=== PATIENT | female | born 1930 | race Caucasian/White ===

== ENCOUNTER 2018-11-25 16:06 | Inpatient (IN) ==
--- NOTE | 2018-11-25 16:21 | Emergency Department Note ---
ED Disposition Clinical Impression: Anemia Qualifiers: Anemia type: unspecified type Qualified Code(s): D64.9 - Anemia, unspecified Hypotension Qualifiers: Hypotension type: unspecified hypotension type Qualified Code(s): I95.9 - Hypotension, unspecified Acute bronchitis Qualifiers: Bronchitis organism: unspecified organism Qualified Code(s): J20.9 - Acute bronchitis, unspecified Disposition: Admitted as Observation Condition on Discharge: [facility] - Critical Care Critical Care Time: No Attestation: On , the high probability of a clinically significant, sudden or life threatening deterioration of the following system(s) required my full and direct attention, intervention and personal management. The time I documented below is in addition to time spent performing reported procedures but includes the following listed in this critical care notation. Medical Decision Making - [place] Inquiry Pt receiving controlled substance: No Vital Signs: 11/25/18 16:08 11/25/18 16:19 11/25/18 16:24 Temperature 100.1 F H Temperature Source Oral Pulse Rate Pulse Rate [Left Radial] 117 H 109 H 107 H Respiratory Rate 20 20 Blood Pressure Blood Pressure [Right Arm] 80/65 L 90/47 L 84/47 L Blood Pressure Mean [Right Arm] 70 61 59 Blood Pressure Source Blood Pressure Source [Right Arm] Automatic Cuff Automatic Cuff Automatic Cuff Blood Pressure Position Blood Pressure Position [Right Arm] Sitting Sitting Sitting 02 Sat by Pulse Oximetry 96 96 96 Oxygen Delivery Method Nasal Cannula Nasal Cannula Nasal Cannula Oxygen Flow Rate (LPM) 4 2 2 11/25/18 16:30 11/25/18 16:39 11/25/18 16:43 Temperature Temperature Source Pulse Rate Pulse Rate [Left Radial] 108 H 107 H 108 H Respiratory Rate Blood Pressure Blood Pressure [Right Arm] 98/46 L 91/52 L 95/51 L Blood Pressure Mean [Right Arm] 63 65 65 Blood Pressure Source Blood Pressure Source [Right Arm] Automatic Cuff Automatic Cuff Automatic Cuff Blood Pressure Position Blood Pressure Position [Right Arm] Sitting Sitting Sitting 02 Sat by Pulse Oximetry 95 Oxygen Delivery Method Room Air Oxygen Flow Rate (LPM) 11/25/18 16:47 11/25/18 16:51 11/25/18 17:11 Temperature 99.3 F 99.2 F Temperature Source Oral Oral Pulse Rate 106 H Pulse Rate [Left Radial] 112 H Respiratory Rate 18 Blood Pressure Blood Pressure [Right Arm] 98/55 L Blood Pressure Mean [Right Arm] 69 Blood Pressure Source Blood Pressure Source [Right Arm] Automatic Cuff Blood Pressure Position Blood Pressure Position [Right Arm] Sitting 02 Sat by Pulse Oximetry 94 L Oxygen Delivery Method Non-Rebreather Oxygen Flow Rate (LPM) 2 11/25/18 17:30 11/25/18 17:40 11/25/18 18:00 Temperature Temperature Source Pulse Rate Pulse Rate [Left Radial] 108 H 112 H 108 H Respiratory Rate 16 20 Blood Pressure Blood Pressure [Right Arm] 115/59 L 115/64 116/60 Blood Pressure Mean [Right Arm] 77 81 78 Blood Pressure Source Blood Pressure Source [Right Arm] Automatic Cuff Automatic Cuff Blood Pressure Position Blood Pressure Position [Right Arm] Sitting Sitting Sitting 02 Sat by Pulse Oximetry 93 L 90 L Oxygen Delivery Method Nasal Cannula Nasal Cannula Oxygen Flow Rate (LPM) 2 2 11/25/18 19:00 11/25/18 20:05 Temperature 98.1 F Temperature Source Temporal Artery Scan Pulse Rate 102 H Pulse Rate [Left Radial] 109 H Respiratory Rate 20 18 Blood Pressure 122/63 Blood Pressure [Right Arm] 121/63 Blood Pressure Mean [Right Arm] 82 Blood Pressure Source Automatic Cuff Blood Pressure Source [Right Arm] Automatic Cuff Blood Pressure Position Sitting Blood Pressure Position [Right Arm] Sitting 02 Sat by Pulse Oximetry 94 L Oxygen Delivery Method Nasal Cannula Nasal Cannula Oxygen Flow Rate (LPM) 2 2 - Lab Data Lab Results 11/25/18 16:15: WBC 95.3 H*, RBC 1.64 L*, Hgb 6.0 L*, Hct 19.6 L*, MCV 119.7 H, MCH 36.3 H, MCHC 30.4 L, RDW 16.2, Plt Count 238, MPV 7.8, Neut % (Auto) 10.3 L, Lymph % (Auto) 86.3 H, [place] % (Auto) 0.5 L, Eos % (Auto) 0.2, Baso % (Auto) 2.8 H, Neut # (Auto) 9.8 H, Lymph # (Auto) 82.2 H, [place] # (Auto) 0.5, Eos # (Auto) 0.2, Baso # (Auto) 2.7 H, Total Counted 100, Neutrophils % (Manual) 7 L, Lymphocytes % (Manual) 87 H, Atypical Lymphs % 5.0, Monocytes % (Manual) 1 L, Platelet Estimate Normal, Hypochromasia 1+, Macrocytosis 2+ 11/25/18 16:15: Sodium 139, Potassium 4.3, Chloride 100, Carbon Dioxide 28, Anion Gap 15.3 H, BUN 15, Creatinine 1.11 H, Estimated Creat Clear 40, Estimated GFR 47 L, Est GFR ( Amer) 56 L, Glucose 136 H, Calcium 8.7, Total Bilirubin 1.7 H, AST 19, ALT 13, Alkaline Phosphatase 124 H, Total Protein 6.9, Albumin 4.1, Globulin 2.8, Albumin/Globulin Ratio 1.5, Amylase 36, TSH 0.37 11/25/18 16:15: Lactate 1.6 11/25/18 16:15: PT 62.8 H, INR 6.44 H 11/25/18 16:15: Lipase 90 11/25/18 16:15: Acetaminophen 0 L 11/25/18 16:23: Specimen Source L. radial, O2 % 2 lpm, ABG pH 7.42, ABG pCO2 40.9, ABG pO2 74.7 L, ABG HCO3 26.1 H, ABG Total CO2 27.3 H, ABG O2 Saturation 93, ABG Base Excess 1.6, [place] Test acceptable 11/25/18 17:05: Stool Occult Blood Negative 11/25/18 17:16: Influenza Type A Ag Negative, Influenza Type B Ag Negative 11/25/18 17:20: Crossmatch (AHG) See Detail 11/25/18 17:55: Urine Color Yellow, Urine Appearance Clear, Urine pH 7.0, Ur Specific [place] 1.010, Urine Protein Negative, Urine Glucose (UA) Negative, Urine Ketones Negative, Urine Blood Trace-i, Urine Nitrate Negative, Urine Bilirubin Negative, Urine Urobilinogen 0.2, Ur Leukocyte Esterase Negative, Urine RBC Occasional, Urine WBC Occasional, Ur Squamous Epith Cells None, Amorphous Sediment 1+ Result diagrams: 11/25/18 16:15 11/25/18 16:15 Orders (Tests/Meds): ED MEDICATIONS Generic Name Dose Route Start Last Admin Trade Name Freq PRN Reason Stop Dose Admin Acetaminophen/Codeine Phosphate 1 - 2 each 11/25/18 19:47 Tylenol #3 Tablet PO 12/25/18 19:46 TIDP PRN shingles pain Albuterol/Ipratropium 3 ml 11/25/18 20:00 Duoneb 3ml Neb IH 12/25/18 19:59 QIDRT LINDSAY Dicyclomine HCl 10 mg 11/25/18 19:47 Bentyl 10mg Capsule PO 12/25/18 19:46 Q4HP PRN cramping Sodium Chloride 250 mls @ 25 mls/hr 11/25/18 19:47 Sod Chlor 0.9% 250ml Bag IV 11/26/18 16:59 .Q10H LINDSAY Ceftriaxone Sodium 1 gm/ 50 mls @ 100 mls/hr 11/26/18 19:15 Sodium Chloride IV 12/09/18 19:14 Q24H LINDSAY Protocol Sodium Chloride 1,000 mls @ 100 mls/hr 11/25/18 19:47 Sod Chlor 0.9% 1000ml Bag IV 12/25/18 19:46 .Q10H LINDSAY Levothyroxine Sodium 150 mcg 11/26/18 09:00 Synthroid 150mcg (0.15mg) Tablet PO 12/26/18 08:59 DAILY [facility] Montelukast Sodium 10 mg 11/25/18 21:00 Singulair 10mg Tablet PO 12/25/18 20:59 HS LINDSAY Non-Formulary Medication 800 mg 11/25/18 21:00 Gabapentin [Gabapentin 800mg Tab] PO 12/25/18 20:59 TID LINDSAY Non-Formulary Medication 17 gm 11/26/18 09:00 Polyethylene Glycol 3350 [Miralax Powder] PO 12/26/18 08:59 DAILY [facility] Non-Formulary Medication 10 meq 11/26/18 09:00 Potassium Citrate [Urocit-K] PO 12/26/18 08:59 DAILY [facility] Ondansetron HCl 4 mg 11/25/18 19:47 Zofran 4mg Odt PO 12/25/18 19:46 TIDP PRN Nausea Sertraline HCl 50 mg 11/26/18 09:00 Zoloft 50mg Tablet PO 12/26/18 08:59 DAILY [facility] Temazepam 30 mg 11/25/18 21:00 Restoril 30mg Capsule PO 12/25/18 20:59 HS LINDSAY Discontinued Medications Generic Name Dose Route Start Last Admin Trade Name Freq PRN Reason Stop Dose Admin Albuterol/Ipratropium 3 ml 11/25/18 20:00 11/25/18 16:46 Duoneb 3ml Neb IH 12/25/18 19:59 3 ml QIDRT LINDSAY Administration Sodium Chloride 1,000 mls @ 999 mls/hr 11/25/18 16:15 11/25/18 16:16 Sod Chlor 0.9% 1000ml Bag IV 11/25/18 17:15 999 mls/hr .Q1H1M LINDSAY Administration Sodium Chloride 1,110 mls @ 999 mls/hr 11/25/18 16:26 11/25/18 16:53 Sod Chlor 0.9% 1000ml Bag IV 11/25/18 17:31 999 mls/hr .Q1H7M LINDSAY Administration Sodium Chloride 250 mls @ 25 mls/hr 11/25/18 17:00 Sod Chlor 0.9% 250ml Bag IV 11/26/18 16:59 .Q10H LINDSAY Ceftriaxone Sodium 1 gm/ 50 mls @ 100 mls/hr 11/25/18 19:15 11/25/18 19:30 Sodium Chloride IV 12/09/18 19:14 100 mls/hr Q24H LINDSAY Administration Protocol Ioversol 75 ml 11/25/18 18:02 11/25/18 18:03 Rad-Optiray 350 100ml Vial IV 11/25/18 18:03 75 ml ONCE ONE Administration Methylprednisolone Sodium Succinate 125 mg 11/25/18 16:26 11/25/18 16:37 Solu-Medrol 125mg/2ml Vial IV 11/25/18 16:27 125 mg ONCE ONE Administration Sodium Chloride 10 ml 11/25/18 18:02 11/25/18 18:03 Rad-Saline Flush 10ml Syringe IV 11/25/18 18:03 10 ml ONCE ONE Administration ORDERS Category Date Time Status PRBC [Red Blood Cells] Stat BBK 11/25/18 17:20 Received Type and Screen Stat BBK 11/25/18 17:20 Received Complete Blood Count Auto Diff AMLAB Lab 11/26/18 06:00 Ordered Hepatitis Panel (4) Stat Lab 11/25/18 16:15 Received Prothrombin Time INR AMLAB Lab 11/26/18 06:00 Ordered Blood Culture Stat Micro 11/25/18 16:15 Received - Radiology Data #1 Image(s): Chest Image Reviewed: Yes I have reviewed radiologist's interpretation Preliminary Findings: Normal/NAD - CT Data CT Scan: Abdomen, Pelvis Time Received: 18:[address] Reviewed: Yes: I have viewed the radiologist's interpretation Findings Narrative: IMPRESSION: 1. No evidence of acute intra-abdominal or retroperitoneal hemorrhage. 2. Splenomegaly 3. Severe wedging of L1 with kyphosis and retrolisthesis of the posterior inferior aspect with spinal stenosis Dictated By: [place] Lynch MD Signed By: <Electronically signed by Houston Lynch MD in [place]> 11/25/18 4800 - ECG Data Tracing #1 EKG interpreted by Fernando Razo MD: Rhythm: sinus Rate: [place]: normal Ectopy: none Conduction: normal ST Segment Changes: none T Wave Changes: none Q Waves: none No evidence of acute ischemia or injury - Physician Consults Physician Consulted: Mike Time: 19:08 Reason -: Admission Comment/Response: Agrees to admit the patient to the hospital. We discussed the patient's clinical information, including history, exam, laboratory and radiology results and ED course. Per hospital procedure, I will write temporary bridge inpatient orders on the patient. Specific orders requested by the admitting physician: Await crossmatched blood, normal saline 100 cc/h, Rocephin. hold Coumadin and Lasix and continue other medications. Medical Decision Narrative: Lab reports that the patient has an antibody and they will need to obtain crossmatched blood from [place]. Patient could only be transfused from our blood supply if it was emergent. General Adult HPI - General Chief complaint: Weakness Stated complaint: weakness Time Seen by Provider: 11/25/18 16:19 Mode of Arrival: EMS Limitations: No Limitations Description of Symptoms (Recalled from ER Triage Doc. by RN): to ed per squad reports pt with generalized weakness, cough, pt with hx of dementia and is usually ambulatory at home but has not be up out of bed today. family states pt was placed on macrobid weds for uti. pt wears O2 2L 19/04 squad states o2 sats of 88% so they increased flow to 4Lcpta IV - History of Present Illness HPI narrative: Brought in by ambulance. History obtained from patient and her son. She is feeling generally weak today. Her oxygen saturation dropped. She is normally on 2 L by nasal cannula at home, turned up to 4 L. She has had cough and congestion for about a week. She has been on treatment with Macrobid for a urinary tract infection for the past couple of days. She has a history of recurrent urinary tract infections. Patient skin color has changed markedly today. Patient says she has had a prior cholecystectomy. She denies any abdominal pain. No vomiting or diarrhea. She is denying any sort of pain at present. No history of liver problems, hepatitis, or alcohol use. History of anemia, on iron, stool is always black. Hemoglobin is generally in the range of 8. - Related Data Home Medications Medication Instructions Recorded Confirmed Acetaminophen with Codeine 1 - 2 tab PO TIDP PRN MDD 1-2 as 12/02/17 11/25/18 [Tylenol with Codeine #3 needed tablet] Gabapentin [Gabapentin 800mg Tab] 800 mg PO TID 12/02/17 11/25/18 Levothyroxine Sodium [Synthroid 150 mcg PO DAILY 12/02/17 11/25/18 150mcg (0.15mg) tablet] Montelukast Sodium [Montelukast 10 mg PO HS 12/02/17 11/25/18 10mg Tab] Promethazine HCl [Phenergan 12.5mg 12.5 mg PO Q6HP PRN 12/02/17 11/25/18 tablet] Sertraline HCl [Zoloft 50mg tablet] 50 mg PO DAILY 12/02/17 11/25/18 Temazepam [Restoril 30mg capsule] 30 mg PO HS 12/02/17 11/25/18 Warfarin Sodium 5 mg PO MOTUTHFRSA 12/02/17 11/25/18 Dicyclomine HCl [Bentyl 10mg 10 mg PO Q4HP PRN 12/03/17 11/25/18 capsule] Ondansetron [Zofran 4mg ODT] 4 mg PO TIDP PRN 12/03/17 11/25/18 Warfarin Sodium 2.5 mg PO WE 12/03/17 11/25/18 Furosemide [Furosemide 20mg Tab] 20 mg PO DAILY 03/20/18 11/25/18 Polyethylene Glycol 3350 [Miralax 17 gm PO DAILY 03/20/18 11/25/18 Powder] Potassium Citrate [Urocit-K] 10 meq PO DAILY 03/20/18 11/25/18 Allergies Allergy/AdvReac Type Severity Reaction Status Date / Time tramadol [TRAMADOL] AdvReac Intermediate NA-NAUSEA Verified 12/02/17 23:02 morphine [MORPHINE] AdvReac Mild NA-NAUSEA Verified 12/02/17 23:02 [facility] History - Hepatitis A Screen Drug use history?: No High risk sexual behaviors?: No History of sexually transmitted infection?: No Currently employed?: No Childcare worker?: No Do you have indoor plumbing?: Yes Do you have electricity?: Yes Attestation statement:: This patient has been screened for Hepatitis A risk factors. I have reviewed the patient's past medical history: Yes Medical History: Reports:: Cancer (leukemia, colon), Depression, Hypertension, Pulmonary Embolism Denies:: Diabetes Mellitus Type 1, Diabetes Mellitus Type 2, MRSA Other Medical History: Reports: Hypothyroidism, Thyroid Disease (thyroid removed) Other Surgeries: Yes: Appendectomy, Hernia Repair, Thyroidectomy Amputation: No Fractures: No Comment: Right hemicolectomy - Social History Smoking Status: Former smoker Tobacco Type: cigarettes Alcohol Intake: never Occupational Status: retired Housing: house Household Members: caregiver - Psychiatric History Expresses thoughts of harming self/others: None Suicide Plan Description: No Plan Pschychiatric History:: Reports:: Depression Family Hx:: Coronary Artery Disease ROS Obtained: Yes All systems reviewed & no additional complaints - Constitutional Constitutional: Reports fatigue, Reports fever(s) (Discovered in emergency department), Reports weakness - Cardiovascular Cardiovascular: Reports other Comments: Patient denies chest pain, but son states she complained of some right-sided chest pain earlier today - Respiratory Respiratory: Yes cough, No dyspnea - Gastrointestinal Gastrointestingal: Denies: abdominal pain, diarrhea, vomiting Physical Exam - General General appearance: alert, in no apparent distress - Head Head exam: atraumatic, normocephalic - Eye Eye exam: Present: PERRL, EOMI - ENT ENT exam: Present: mucous membranes moist - Neck Neck exam: Present: normal inspection, trachea midline - Chest Chest inspection: Present: normal inspection, symmetric chest wall rise - Respiratory Respiratory exam: Present: normal lung sounds bilaterally. Absent: respiratory distress, accessory muscle use - Cardiovascular Cardiovascular exam: Present: normal rhythm, tachycardia, normal heart sounds - Abdominal Exam Abdominal exam: Present: soft. Absent: distention, tenderness, guarding, rebound, rigidity - Rectal Exam Rectal exam: Present: normal inspection. Absent: black stool, bloody stool, mass - Extremities Exam Extremities exam: Present: normal inspection - Neurological Exam Neurological exam: Present: alert - Psychiatric Psychiatric exam: Present: normal affect, normal mood - Skin Skin exam: Present: warm, dry, pallor, other (Sallow appearance)
[2018-11-25 16:42] LABS: ABG Base Excess 1.6 mmol/L (-2.4-2.3); ABG HCO3 26.1 mmhg (22.0-26.0); ABG Oxygen Saturation 93 % (90-100); ABG PCO2 40.9 mmhg (35.0-45.0); ABG PH 7.42 mmol/L (7.35-7.45); ABG PO2 74.7 mmhg (80-100); ABG TCO2 27.3 mmhg (23-27)
[2018-11-25 16:43] LABS: Basophils # 2.7 K/mm3 (0-0.2); Basophils % 2.8 % (0.1-2.0); Eosinophils # 0.2 K/mm3 (0.0-0.4); Eosinophils % 0.2 % (0.1-12.0); Lymphocytes # 82.2 K/mm3 (0.7-4.5); Lymphocytes % 86.3 % (10-50); Mean Corpuscular HGB Conc 30.4 g/dL (31.8-35.4); Mean Corpuscular Hemoglobin 36.3 pg (27.0-31.2); Mean Corpuscular Volume 119.7 fl (81-99); Mean Platelet Volume 7.8 fl (7.4-10.4); Monocytes # 0.5 K/mm3 (0.1-1.0); Monocytes % 0.5 % (1.7-9.3); Neutrophils # 9.8 K/mm3 (1.8-7.8); Platelet Count 238 K/mm3 (142-424); Red Blood Count 1.64 M/mm3 (4.20-5.40); Red Cell Distribution Width 16.2 % (11.5-17.5)
[2018-11-25 16:44] LABS: Allen's Test acceptable; Oxygen 2 lpm %
[2018-11-25 16:54] LABS: Albumin Level 4.1 gm/dL (3.4-5.0); Albumin/Globulin Ratio 1.5 (1.1-1.8); Anion Gap 15.3 mEq/L (5-15); Bilirubin,Total 1.7 mg/dL (0.2-1.0); Calcium 8.7 mg/dL (8.5-10.1); Globulin 2.8 gm/dl (1.3-3.2); Neutrophils % 10.3 % (37.0-80.0); Potassium 4.3 mmoL/L (3.5-5.1); Thyroid Stimulating Hormone 0.37 uIU/ml (0.358-3.740); Total Protein,Serum 6.9 gm/dL (6.4-8.2)
[2018-11-25 16:55] LABS: Hematocrit 19.6 % (37.0-47.0); White Blood Count 95.3 K/mm3 (4.8-10.8)
[2018-11-25 16:59] LABS: Prothrombin Time 62.8 seconds (9.4-11.8)
[2018-11-25 17:00] LABS: INR 6.44 (0.9-1.1)
[2018-11-25 17:10] LABS: Lymphocytes % 87 % (10-50); Macrocytosis 2+; Monocytes % 1 % (2-9); Neutrophils % 7 % (42-76); Total Cells Counted 100
[2018-11-25 17:11] LABS: Hypochromasia 1+
[2018-11-25 18:22] LABS: Microscopic, Urine URINE MICROSCOPIC (MICROSCOPIC)
[2018-11-25 18:24] LABS: Appearance,Urine CLEAR (Clear); Bilirubin,Urine Negative (Negative); Blood, Urine TRACE-I (Negative); Color,Urine YELLOW (Yellow); Glucose,Urine (UA) Negative (Negative); Ketones,Urine Negative (Negative); Leukocyte Esterase,Urine Negative (Negative); Protein,Urine Negative (Negative); Urobilinogen,Urine 0.2 EU/dl (0.2)
[2018-11-25 18:44] LABS: Amorphous Sediment,Urine 1+ /lpf; RBC,Urine Occasional #/hpf (0-3); WBC,Urine Occasional #/hpf (0-3)
--- NOTE | 2018-11-26 08:22 | History & Physical Report ---
*Admission Date: 11/26/18 <Keke Romeo 11/26/18 08:47> *Chief complaint: weakness, cough <Keke Romeo 11/26/18 08:47> *History of present illness: Ms. Palomo is an 88-year-old female with a history of chronic lymphocytic leukemia who is currently on anticoagulation d/t a history of a PE. Her son states she has had a cough for the past 1-2 weeks and has been taking Bromfed with some improvement. She seems to be wheezing more than she has been the past few days. She has also been on Macrobid for the past 3 days for a urinary tract infection. He states yesterday she woke up early and went to the bathroom and was feeling weak. As the day progressed, her weakness wors ened. She began getting very pale and also looked jaundiced in the face. She became too weak to even walk, therefore EMS was called and she was transported to the emergency room. Evaluation revealed a hemoglobin of 6 and a hematocrit of 19.6. Her stool for blood was negative. Her INR was supratherapeutic at 6.44. She was admitted for blood transfusion and further evaluation. <Keke Romeo 11/26/18 08:47> [facility] History Medical History: Reports:: Cancer (chronic lymphocytic leukemia, colon), Depression, Hypertension, Pulmonary Embolism Denies:: Diabetes Mellitus Type 1, Diabetes Mellitus Type 2, MRSA <Keke Romeo 11/26/18 08:47> *Have you ever received a pneumonia vaccine?: No <Keke Romeo 11/26/18 08:47> *Have you received a flu vaccine this season?: No <Keke Romeo 11/26/18 08:47> Other Medical History: Reports: Hypothyroidism, Thyroid Disease (thyroid removed), Other (Meningioma, L1 compression fx) <Keke Romeo 11/26/18 08:47> Other Surgeries: Yes: Appendectomy, Colon Resection, Hernia Repair, Thyroidectomy <Keke Romeo 11/26/18 08:47> Amputation: No <Keke Romoe 11/26/18 08:47> Fractures: No <Keke Romeo 11/26/18 08:47> - *Social History Educational Level: Completed High School <Keke Romeo 11/26/18 08:47> Smoking Status: Former smoker <Keke Romeo 11/26/18 08:47> Tobacco Type: cigarettes <Keke Romeo 11/26/18 08:47> Alcohol Intake: never <Keke Romeo 11/26/18 08:47> *Occupational Status:: retired <Keke Romeo 11/26/18 08:47> Housing: house <Keke Romeo 11/26/18 08:47> Household Members: caregiver <Keke Romeo 11/26/18 08:47> *Travel in the last 8 weeks: None <Keke Romeo 11/26/18 08:47> - Psychiatric History Expresses thoughts of harming self/others: None <Keke Romeo 11/26/18 08:47> Suicide Plan Description: No Plan <Keke Romeo 11/26/18 08:47> Pschychiatric History:: Reports:: Depression <Keke Romeo 11/26/18 08:47> Family Hx:: Coronary Artery Disease, Hypertension, Kidney Disease <Keke Romeo 11/26/18 08:47> Review of Systems - Constitutional Reports chills, Reports fatigue, Reports fever(s), Reports weakness <Keke Romeo 11/26/18 08:47> - Eyes Denies blurry vision, Denies double vision <Keke Romeo 11/26/18 08:47> - ENT Reports nasal congestion, Denies sore throat <Keke Romeo 11/26/18 08:47> - *Cardiovascular Denies chest pain, Denies shortness of breath, Denies rapid, pounding, or irregular heartbeat <Keke Romeo 11/26/18 08:47> - *Respiratory Reports cough, Denies shortness of breath <Keke Romeo 11/26/18 08:47> - *Gastrointestinal Denies abdominal pain, Denies loose stools, Denies nausea, Denies vomiting <Keke Romeo 11/26/18 08:47> - *Genitourinary Denies difficulty urinating, Denies painful urination <Keke Romeo 11/26/18 08:47> - *Musculoskeletal Denies joint pain, Denies body aches <Keke Romeo - 11/26/18 08:47> - *Neurologic Reports weakness, Denies headache(s), Denies dizziness <Keke Romeo - 11/26/18 08:47> Meds Home Medications Medication Instructions Recorded Confirmed Type Acetaminophen with Codeine 1 - 2 tab PO TIDP PRN MDD 1-2 as 12/02/17 11/25/18 History [Tylenol with Codeine #3 needed tablet] Gabapentin [Gabapentin 800mg Tab] 800 mg PO TID 12/02/17 11/25/18 History Levothyroxine Sodium [Synthroid 150 mcg PO DAILY 12/02/17 11/25/18 History 150mcg (0.15mg) tablet] Montelukast Sodium [Montelukast 10 mg PO HS 12/02/17 11/25/18 History 10mg Tab] Promethazine HCl [Phenergan 12.5mg 12.5 mg PO Q6HP PRN 12/02/17 11/25/18 History tablet] Sertraline HCl [Zoloft 50mg tablet] 50 mg PO DAILY 12/02/17 11/25/18 History Temazepam [Restoril 30mg capsule] 30 mg PO HS 12/02/17 11/25/18 History Warfarin Sodium 5 mg PO MOTUTHFRSA 12/02/17 11/25/18 History Ondansetron [Zofran 4mg ODT] 4 mg PO TIDP PRN 12/03/17 11/25/18 History Warfarin Sodium 2.5 mg PO WE 12/03/17 11/25/18 History Furosemide [Furosemide 20mg Tab] 20 mg PO DAILY 03/20/18 11/25/18 History Polyethylene Glycol 3350 [Miralax 17 gm PO DAILY 03/20/18 11/25/18 History Powder] Potassium Citrate [Urocit-K] 10 meq PO DAILY 03/20/18 11/25/18 History Dicyclomine HCl 20 mg PO QID 11/26/18 11/26/18 History Ferrous Sulfate [Iron] 325 mg PO BID 11/26/18 11/26/18 History <[place] - 11/26/18 08:59> Allergies Allergy/AdvReac Type Severity Reaction Status Date / Time tramadol [TRAMADOL] AdvReac Intermediate NA-NAUSEA Verified 12/02/17 23:02 morphine [MORPHINE] AdvReac Mild NA-NAUSEA Verified 12/02/17 23:02 <Hiren Mckeon - 11/26/18 08:59> Exam Vital signs and Labs for Last 24 Hours: Temp Pulse Resp BP Pulse Ox 97.8 F 110 H 20 106/58 L 93 L 11/26/18 08:25 11/26/18 08:25 11/26/18 08:25 11/26/18 08:25 11/26/18 08:25 Laboratory Results - last 24 hr 11/25/18 16:15: WBC 95.3 H*, RBC 1.64 L*, Hgb 6.0 L*, Hct 19.6 L*, MCV 119.7 H, MCH 36.3 H, MCHC 30.4 L, RDW 16.2, Plt Count 238, MPV 7.8, Neut % (Auto) 10.3 L, Lymph % (Auto) 86.3 H, [place] % (Auto) 0.5 L, Eos % (Auto) 0.2, Baso % (Auto) 2.8 H, Neut # (Auto) 9.8 H, Lymph # (Auto) 82.2 H, [place] # (Auto) 0.5, Eos # (Auto) 0.2, Baso # (Auto) 2.7 H, Total Counted 100, Neutrophils % (Manual) 7 L, Lymphocytes % (Manual) 87 H, Atypical Lymphs % 5.0, Monocytes % (Manual) 1 L, Platelet Estimate Normal, Hypochromasia 1+, Macrocytosis 2+ 11/25/18 16:15: Sodium 139, Potassium 4.3, Chloride 100, Carbon Dioxide 28, Anion Gap 15.3 H, BUN 15, Creatinine 1.11 H, Estimated Creat Clear 40, Estimated GFR 47 L, Est GFR ( Amer) 56 L, Glucose 136 H, Calcium 8.7, Total Bilirubin 1.7 H, AST 19, ALT 13, Alkaline Phosphatase 124 H, Total Protein 6.9, Albumin 4.1, Globulin 2.8, Albumin/Globulin Ratio 1.5, Amylase 36, TSH 0.37 11/25/18 16:15: Lactate 1.6 11/25/18 16:15: PT 62.8 H, INR 6.44 H 11/25/18 16:15: Lipase 90 11/25/18 16:15: Acetaminophen 0 L 11/25/18 16:23: Specimen Source L. radial, O2 % 2 lpm, ABG pH 7.42, ABG pCO2 40.9, ABG pO2 74.7 L, ABG HCO3 26.1 H, ABG Total CO2 27.3 H, ABG O2 Saturation 93, ABG Base Excess 1.6, [place] Test acceptable 11/25/18 17:05: Stool Occult Blood Negative 11/25/18 17:16: Influenza Type A Ag Negative, Influenza Type B Ag Negative 11/25/18 17:20: Blood Type A Positive, Antibody Screen Positive, Crossmatch (AHG) See Detail 11/25/18 17:20: Antibody Identification Warm Auto Antibody 11/25/18 17:55: Urine Color Yellow, Urine Appearance Clear, Urine pH 7.0, Ur Specific [place] 1.010, Urine Protein Negative, Urine Glucose (UA) Negative, Urine Ketones Negative, Urine Blood Trace-i, Urine Nitrate Negative, Urine Bilirubin Negative, Urine Urobilinogen 0.2, Ur Leukocyte Esterase Negative, Urine RBC Occasional, Urine WBC Occasional, Ur Squamous Epith Cells None, Amorphous Sediment 1+ <Rodríguez Mckeonian - 11/26/18 08:59> Temp Pulse Resp BP Pulse Ox 98.5 F 107 H 18 118/58 L 94 L 11/26/18 07:25 11/26/18 07:25 11/26/18 07:25 11/26/18 07:25 11/26/18 07:25 Laboratory Results - last 24 hr 11/25/18 16:15: WBC 95.3 H*, RBC 1.64 L*, Hgb 6.0 L*, Hct 19.6 L*, MCV 119.7 H, MCH 36.3 H, MCHC 30.4 L, RDW 16.2, Plt Count 238, MPV 7.8, Neut % (Auto) 10.3 L, Lymph % (Auto) 86.3 H, [place] % (Auto) 0.5 L, Eos % (Auto) 0.2, Baso % (Auto) 2.8 H, Neut # (Auto) 9.8 H, Lymph # (Auto) 82.2 H, [place] # (Auto) 0.5, Eos # (Auto) 0.2, Baso # (Auto) 2.7 H, Total Counted 100, Neutrophils % (Manual) 7 L, Lymphocytes % (Manual) 87 H, Atypical Lymphs % 5.0, Monocytes % (Manual) 1 L, Platelet Estimate Normal, Hypochromasia 1+, Macrocytosis 2+ 11/25/18 16:15: Sodium 139, Potassium 4.3, Chloride 100, Carbon Dioxide 28, Anion Gap 15.3 H, BUN 15, Creatinine 1.11 H, Estimated Creat Clear 40, Estimated GFR 47 L, Est GFR ( Amer) 56 L, Glucose 136 H, Calcium 8.7, Total Bilirubin 1.7 H, AST 19, ALT 13, Alkaline Phosphatase 124 H, Total Protein 6.9, Albumin 4.1, Globulin 2.8, Albumin/Globulin Ratio 1.5, Amylase 36, TSH 0.37 11/25/18 16:15: Lactate 1.6 11/25/18 16:15: PT 62.8 H, INR 6.44 H 11/25/18 16:15: Lipase 90 11/25/18 16:15: Acetaminophen 0 L 11/25/18 16:23: Specimen Source L. radial, O2 % 2 lpm, ABG pH 7.42, ABG pCO2 40.9, ABG pO2 74.7 L, ABG HCO3 26.1 H, ABG Total CO2 27.3 H, ABG O2 Saturation 93, ABG Base Excess 1.6, [place] Test acceptable 11/25/18 17:05: Stool Occult Blood Negative 11/25/18 17:16: Influenza Type A Ag Negative, Influenza Type B Ag Negative 11/25/18 17:20: Blood Type A Positive, Antibody Screen Positive, Crossmatch (AHG) See Detail 11/25/18 17:20: Antibody Identification Warm Auto Antibody 11/25/18 17:55: Urine Color Yellow, Urine Appearance Clear, Urine pH 7.0, Ur Specific [place] 1.010, Urine Protein Negative, Urine Glucose (UA) Negative, Urine Ketones Negative, Urine Blood Trace-i, Urine Nitrate Negative, Urine Bilirubin Negative, Urine Urobilinogen 0.2, Ur Leukocyte Esterase Negative, Urine RBC Occasional, Urine WBC Occasional, Ur Squamous Epith Cells None, Amorphous Sediment 1+ <Kkee Romeo - 11/26/18 08:47> I & O for Last 24 hours: Intake & Output 11/23/18 11/24/18 11/25/18 11/26/18 11:59 11:59 11:59 11:59 Intake Total 1597 / 1597 Output Total 1000 / 1000 Balance 597 / 597 Weight 5 lb 7 oz <MikeRodríguezHiren - 11/26/18 08:59> Intake & Output 11/23/18 11/24/18 11/25/18 11/26/18 11:59 11:59 11:59 11:59 Intake Total 1347 / 1347 Output Total 1000 / 1000 Balance 347 / 347 Weight 5 lb 7 oz <Keke Romeo - 11/26/18 08:47> Microbiology Reports for the Last 24 Hours: Microbiology 11/26/18 04:20 Sputum - Expectorated Sputum Gram Stain - Final <[place] marie - 11/26/18 08:59> Microbiology 11/26/18 04:20 Sputum - Expectorated Sputum Gram Stain - Final <Keke Romeo - 11/26/18 08:47> - Constitutional no acute distress <Keke Romeo - 11/26/18 08:47> - *Routine HEENT Exam Head: Present: normocephalic <Keke Romeo 11/26/18 08:47> Eye: Present: EOMI, PERRL <Keke Romeo 11/26/18 08:47> ENT: Present: mucous membranes moist <Keke Romeo - 11/26/18 08:47> - *Routine Neck Exam Present: supple. Absent: lymphadenopathy <Keke Romeo - 11/26/18 08:47> - *Routine Respiratory Exam Present: rhonchi, wheezes (bilaterally) <Keke Romeo - 11/26/18 08:47> - *Routine Cardiovascular Exam Present: RRR <Keke Romeo - 11/26/18 08:47> - *Routine Abdominal Exam Present: soft, normoactive bowel sounds. Absent: tenderness <Keke Romeo - 11/26/18 08:47> - *Routine Extremities Exam Absent: cyanosis, clubbing, edema <Keke Romeo - 11/26/18 08:47> - *Routine Skin Exam Present: pallor <Keke Romeo - 11/26/18 08:47> - *Routine Neurological Exam Present: alert, oriented X3 <Keke Romeo 11/26/18 08:47> H&P: Result - Impressions CXR - nothing acute Abdominal CT 1. No evidence of acute intra-abdominal or retroperitoneal hemorrhage. 2. Splenomegaly 3. Severe wedging of L1 with kyphosis and retrolisthesis of the posterior inferior aspect with spinal stenosis <Keke Romeo - 11/26/18 08:47> Assessment and Plan (1) Anemia Current visit: Yes Status: Acute Qualifiers: Anemia type: unspecified type Qualified Code(s): D64.9 - Anemia, unspecified Category: Medical Code(s): D64.9 - Anemia, unspecified (2) Subtherapeutic international normalized ratio (INR) Current visit: No Status: Acute Category: Medical Code(s): R79.1 - Abno rmal coagulation profile (3) Hypotension Current visit: Yes Status: Acute Qualifiers: Hypotension type: unspecified hypotension type Qualified Code(s): I95.9 - Hypotension, unspecified Category: Medical Code(s): I95.9 - Hypotension, unspecified (4) Acute bronchitis Current visit: Yes Status: Acute Qualifiers: Bronchitis organism: unspecified organism Qualified Code(s): J20.9 - Acute bronchitis, unspecified Category: Medical Code(s): J20.9 - Acute bronchitis, unspecified (5) Hyperbilirubinemia Current visit: Yes Status: Acute Category: Medical Code(s): E80.6 - Other disorders of bilirubin metabolism (6) Pulmonary hypertension Current visit: No Status: Chronic Category: Medical Code(s): I27.20 - Pulmonary hypertension, unspecified (7) Renal insufficiency Current visit: No Status: Chronic Category: Medical Code(s): N28.9 - Disorder of kidney and ureter, unspecified (8) 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 Category: Medical Code(s): C91.10 - Chronic lymphocytic leukemia of B-cell type not having achieved remission (9) History of pulmonary embolism Current visit: No Status: Chronic Category: Medical Code(s): Z86.711 - Personal history of pulmonary embolism <Hiren Mckeon - 11/26/18 08:59> (1) Anemia Current visit: Yes Status: Acute Qualifiers: Anemia type: unspecified type Qualified Code(s): D64.9 - Anemia, unspecified Category: Medical Code(s): D64.9 - Anemia, unspecified (2) Subtherapeutic international normalized ratio (INR) Current visit: No Status: Acute Category: Medical Code(s): R79.1 - Abnormal coagulation profile (3) Hypotension Current visit: Yes Status: Acute Qualifiers: Hypotension type: unspecified hypotension type Qualified Code(s): I95.9 - Hypotension, unspecified Category: Medical Code(s): I95.9 - Hypotension, unspecified (4) Acute bronchitis Current visit: Yes Status: Acute Qualifiers: Bronchitis organism: unspecified organism Qualified Code(s): J20.9 - Acute bronchitis, unspecified Category: Medical Code(s): J20.9 - Acute bronchitis, unspecified (5) Hyperbilirubinemia Current visit: Yes Status: Acute Category: Medical Code(s): E80.6 - Other disorders of bilirubin metabolism (6) Pulmonary hypertension Current visit: No Status: Chronic Category: Medical Code(s): I27.20 - Pulmonary hypertension, unspecified (7) Renal insufficiency Current visit: No Status: Chronic Category: Medical Code(s): N28.9 - Disorder of kidney and ureter, unspecified (8) 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 Category: Medical Code(s): C91.10 - Chronic lymphocytic leukemia of B-cell type not having achieved remission (9) History of pulmonary embolism Current visit: No Status: Chronic Category: Medical Code(s): Z86.711 - Personal history of pulmonary embolism <Keke Romeo - 11/26/18 08:19> - Assessment and plan all Dx Assessment and Plan for all problems:: Saw patient, agree with above note. <Hiren Mckeon - 11/26/18 08:59> Will continue abx, nebs, and blood transfusion. Will recheck H&H once blood transfusion is complete. <Keke Romeo - 11/26/18 08:47>
--- NOTE | 2018-11-26 10:18 | Pharmacy Consult Notes ---
[facility] Pharmacy VTE Monitoring - Patient Demographics Admission date: 11/25/18 Report Date: 11/26/18 Time: 10:17 Allergies/Adverse Reactions: Patient Allergies tramadol [TRAMADOL] Adverse Reaction (Intermediate, Verified 12/02/17 23:02) NA-NAUSEA morphine [MORPHINE] Adverse Reaction (Mild, Verified 12/02/17 23:02) NA-NAUSEA Height: 1.7 m Weight: 2.466 kg Patient Problems: Current Active Problems Anemia (Acute) Hypotension (Acute) Acute bronchitis (Acute) Hyperbilirubinemia (Acute) - VTE Risk Labs: VTE Related Lab Results Hgb 6.0 g/dL (12.2-16.2) L* 11/25/18 16:15 Hct 19.6 % (37.0-47.0) L* 11/25/18 16:15 Plt Count 238 K/mm3 (142-424) 11/25/18 16:15 PT 62.8 seconds (9.4-11.8) H 11/25/18 16:15 INR 6.44 (0.9-1.1) H 11/25/18 16:15 BUN 15 mg/dL (7-18) 11/25/18 16:15 Creatinine 1.11 mg/dL (0.55-1.02) H 11/25/18 16:15 Estimated Creat Clear 40 mL/min (50-200) 11/25/18 16:15 Was VTE Risk Assessment Performed: Yes VTE Score: 5 VTE Risk Level: Low Risk - Prophylaxis VTE Prophylaxis Ordered?: Yes Types of VTE Prophylaxis: TEDS Knee High Location of Applied Device: Bilateral Lower Extremeties Pharmacologic Type: Other (INR SUPRATHERAPEUTIC (6.44))
[2018-11-27 04:30] LABS: Hematocrit 30.3 % (37.0-47.0)
[2018-11-27 04:42] LABS: Appearance,Urine CLEAR (Clear); Bilirubin,Urine Negative (Negative); Blood, Urine 3+ (Negative); Color,Urine YELLOW (Yellow); Glucose,Urine (UA) Negative (Negative); Ketones,Urine Negative (Negative); Leukocyte Esterase,Urine Negative (Negative); Microscopic, Urine URINE MICROSCOPIC (MICROSCOPIC); Protein,Urine 1+ (Negative); Urobilinogen,Urine 0.2 EU/dl (0.2)
[2018-11-27 04:45] LABS: RBC,Urine TNTC #/hpf (0-3)
[2018-11-27 04:47] LABS: Anion Gap 11.2 mEq/L (5-15); Potassium 4.2 mmoL/L (3.5-5.1)
[2018-11-27 04:50] LABS: INR 5.64 (0.9-1.1); Prothrombin Time 55.2 seconds (9.4-11.8)
[2018-11-27 04:51] LABS: Calcium 7.3 mg/dL (8.5-10.1)
[2018-11-27 05:07] LABS: ABG Base Excess -2.5 mmol/L (-2.4-2.3); ABG Oxygen Saturation 91 % (90-100); ABG PO2 81.7 mmhg (80-100); ABG TCO2 29.7 mmhg (23-27)
[2018-11-27 05:10] LABS: Oxygen 100 %
[2018-11-27 05:11] LABS: ABG PH 7.11 mmol/L (7.35-7.45)
[2018-11-27 05:12] LABS: ABG PCO2 87.3 mmhg (35.0-45.0)
[2018-11-27 05:46] LABS: Hematocrit 30.3 % (37.0-47.0); Platelet Count 304 K/mm3 (142-424); Red Blood Count 2.86 M/mm3 (4.20-5.40); Red Cell Distribution Width 19.7 % (11.5-17.5); White Blood Count 302.2 K/mm3 (4.8-10.8)
[2018-11-27 05:47] LABS: Basophils % 15.3 % (0.1-2.0); Lymphocytes % 61.3 % (10-50); Monocytes % 0.4 % (1.7-9.3); Neutrophils % 8.5 % (37.0-80.0)
[2018-11-27 05:48] LABS: Basophils # 44.8 K/mm3 (0-0.2); Eosinophils # 0.1 K/mm3 (0.0-0.4); Monocytes # 1.2 K/mm3 (0.1-1.0); Neutrophils # 24.8 K/mm3 (1.8-7.8)
[2018-11-27 05:49] LABS: Lymphocytes % 81 % (10-50); Neutrophils % 16 % (42-76); Total Cells Counted 100
[2018-11-27 05:50] LABS: Anisocytosis 2+; Hypochromasia 3+; Macrocytosis 7
--- NOTE | 2018-11-27 06:45 | Progress Note ---
Internal Medicine - PN: Subj *Date: 11/27/18 *Time: 06:39 Interval history: Called by nurse overnight due to fever associated with acute hypoxia and hypertension as a possible transfusion reaction. "Crackles" were reported on lung exam so a dose of IV Lasix and Tylenol suppository was ordered. Evidently, sometime later the patient developed low blood pressure and a rapid response was called by the nurse. Dr. Delaney responded, from the ER, and afterwards called to notify me of the events. ABG, CXR, vitals signs and labs discussed with him. BiPAP was initiated and empiric antibiotics were changed to Vancomycin and Zosyn. Exam Vital signs and Labs for Last 24 Hours: Temp Pulse Resp BP Pulse Ox 97.8 F 116 H 26 H 151/81 H 95 11/26/18 23:57 11/27/18 03:17 11/26/18 23:57 11/26/18 19:48 11/27/18 05:45 Laboratory Results - last 24 hr 11/25/18 17:20: Blood Type A Positive, Antibody Screen Positive, Crossmatch (AHG) See Detail 11/27/18 04:20: Hgb 10.0 L, Hct 30.3 L 11/27/18 04:20: PT 55.2 H, INR 5.64 H 11/27/18 04:20: Sodium 138, Potassium 4.2, Chloride 103, Carbon Dioxide 28, Anion Gap 11.2, BUN 16, Creatinine 1.14 H, Estimated Creat Clear 1, Estimated GFR 45 L, Est GFR ( Amer) 55 L, Glucose 249 H, Calcium 7.3 L D 11/27/18 04:20: Pre-Trans Blood Type A positive, Pre-Trans Vis Hemolysis No, Pre-Trans Antibody Scrn Positive 11/27/18 04:20: WBC 302.2 H* D, RBC 2.86 L D, Hgb 10.0 L, Hct 30.3 L, MCV 106.0 H, MCH 35.0 H, MCHC 33.0, RDW 19.7 H, Plt Count 304 D, MPV 8.0, Neut % (Auto) 8.5 L, Lymph % (Auto) 61.3 H, [place] % (Auto) 0.4 L, Eos % (Auto) 0.0 L, Baso % (Auto) 15.3 H, Neut # (Auto) 24.8 H, Lymph # (Auto) 180.0 H, [place] # (Auto) 1.2 H , Eos # (Auto) 0.1, Baso # (Auto) 44.8 H, Total Counted 100, Neutrophils % (Manual) 16 L, Band Neutrophils % 3.0, Lymphocytes % (Manual) 81 H, Platelet Estimate Normal, Hypochromasia 3+, Anisocytosis 2+, Macrocytosis 7 11/27/18 04:21: Urine Color Yellow, Urine Appearance Clear, Urine pH 6.0, Ur Specific [place] 1.020, Urine Protein 1+, Urine Glucose (UA) Negative, Urine Ketones Negative, Urine Blood 3+, Urine Nitrate Negative, Urine Bilirubin Negative, Urine Urobilinogen 0.2, Ur Leukocyte Esterase Negative, Urine RBC Tntc, Ur Squamous Epith Cells 3-5 11/27/18 04:56: Specimen Source Right radial, O2 % 100, ABG pH 7.11 L*, ABG pCO2 87.3 H, ABG pO2 81.7, ABG HCO3 27.0 H, ABG Total CO2 29.7 H, ABG O2 Saturation 91, ABG Base Excess -2.5 L, [place] Test N/a Vital Signs - 24 hr 11/26/18 06:55 11/26/18 07:10 11/26/18 07:25 Temperature 98.5 F 98.5 F 98.5 F Pulse Rate 101 H 100 H 107 H Pulse Rate [Left Radial] Respiratory Rate 18 17 18 Blood Pressure 107/57 L 112/58 L 118/58 L Blood Pressure [Right Arm] 02 Sat by Pulse Oximetry 93 L 93 L 94 L 11/26/18 08:25 11/26/18 10:22 11/26/18 10:30 Temperature 97.8 F 98.2 F Pulse Rate 110 H 100 H 102 H Pulse Rate [Left Radial] Respiratory Rate 20 20 Blood Pressure 106/58 L 111/55 L Blood Pressure [Right Arm] 02 Sat by Pulse Oximetry 93 L 100 11/26/18 10:35 11/26/18 10:40 11/26/18 10:45 Temperature 98.7 F 98.5 F 98.3 F Pulse Rate 107 H 109 H 106 H Pulse Rate [Left Radial] Respiratory Rate 20 20 20 Blood Pressure 113/66 117/56 L 118/64 Blood Pressure [Right Arm] 02 Sat by Pulse Oximetry 99 96 95 11/26/18 10:50 11/26/18 11:05 11/26/18 11:20 Temperature 98.3 F 98.0 F 98.2 F Pulse Rate 105 H 105 H 100 H Pulse Rate [Left Radial] Respiratory Rate 20 18 18 Blood Pressure 112/56 L 108/54 L 112/60 Blood Pressure [Right Arm] 02 Sat by Pulse Oximetry 95 95 95 11/26/18 11:35 11/26/18 12:35 11/26/18 13:43 Temperature 98.4 F 98.4 F Pulse Rate 105 H 104 H 100 H Pulse Rate [Left Radial] Respiratory Rate 18 18 Blood Pressure 113/62 111/58 L Blood Pressure [Right Arm] 02 Sat by Pulse Oximetry 95 95 97 11/26/18 13:48 11/26/18 14:45 11/26/18 15:21 Temperature 98.5 F 98.3 F 98.9 F Pulse Rate 104 H 108 H Pulse Rate [Left Radial] 109 H Respiratory Rate 20 20 18 Blood Pressure 134/79 120/66 Blood Pressure [Right Arm] 127/58 L 02 Sat by Pulse Oximetry 100 94 L 95 11/26/18 19:48 11/26/18 20:07 11/26/18 23:57 Temperature 98.4 F 97.8 F Pulse Rate 119 H Pulse Rate [Left Radial] 121 H 125 H Respiratory Rate 24 26 H Blood Pressure Blood Pressure [Right Arm] 151/81 H 02 Sat by Pulse Oximetry 93 L 90 L 11/27/18 03:16 11/27/18 03:17 11/27/18 05:45 Temperature Pulse Rate 113 H 116 H Pulse Rate [Left Radial] Respiratory Rate Blood Pressure Blood Pressure [Right Arm] 02 Sat by Pulse Oximetry 95 I & O for Last 24 hours: Intake & Output 11/24/18 11/25/18 11/26/18 11/27/18 11:59 11:59 11:59 11:59 Intake Total 1597 / 1597 2692 / 2692 Output Total 1999 900 / 900 Balance -403 / -403 1792 / 1792 Weight 5 lb 7 oz Microbiology Reports for the Last 24 Hours: Microbiology 11/26/18 04:20 Sputum - Expectorated Sputum Gram Stain - Final 11/26/18 04:20 Sputum - Expectorated Sputum Sputum Culture - Preliminary Radiology Reports for the Last 24 Hours: CXR shows bilateral pneumonia - Constitutional no acute distress (using BiPAP, will awaken to voice and light touch) - *Routine HEENT Exam Head: Present: normocephalic Eye: Present: EOMI ENT: Present: mucous membranes moist - *Routine Neck Exam Present: supple. Absent: lymphadenopathy - *Routine Respiratory Exam Present: rales, rhonchi - *Routine Cardiovascular Exam Present: RRR, tachycardia - *Routine Abdominal Exam Present: soft, normoactive bowel sounds. Absent: tenderness - *Routine Extremities Exam Absent: cyanosis, clubbing, edema - *Routine Skin Exam Present: warm (cap refill < 2 seconds). Absent: cyanosis, rash Assessment and Plan (1) Anemia Current visit: Yes Status: Acute Qualifiers: Anemia type: unspecified type Qualified Code(s): D64.9 - Anemia, unspecified Category: Medical Code(s): D64.9 - Anemia, unspecified (2) Subtherapeutic international normalized ratio (INR) Current visit: No Status: Acute Category: Medical Code(s): R79.1 - Abnormal coagulation profile (3) Hypotension Current visit: Yes Status: Acute Qualifiers: Hypotension type: unspecified hypotension type Qualified Code(s): I95.9 - Hypotension, unspecified Category: Medical Code(s): I95.9 - Hypotension, unspecified (4) Acute bronchitis Current visit: Yes Status: Acute Qualifiers: Bronchitis organism: unspecified organism Qualified Code(s): J20.9 - Acute bronchitis, unspecified Category: Medical Code(s): J20.9 - Acute bronchitis, unspecified (5) Hyperbilirubinemia Current visit: Yes Status: Acute Category: Medical Code(s): E80.6 - Other disorders of bilirubin metabolism (6) Pulmonary hypertension Current visit: No Status: Chronic Category: Medical Code(s): I27.20 - Pulmonary hypertension, unspecified (7) Renal insufficiency Current visit: No Status: Chronic Category: Medical Code(s): N28.9 - Disorder of kidney and ureter, unspecified (8) 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 Category: Medical Code(s): C91.10 - Chronic lymphocytic leukemia of B-cell type not having achieved remission (9) History of pulmonary embolism Current visit: No Status: Chronic Category: Medical Code(s): Z86.711 - Personal history of pulmonary embolism (10) Pneumonia Current visit: Yes Status: Acute Qualifiers: Laterality: bilateral Lung location: unspecified part of lung Category: Medical Code(s): J18.9 - Pneumonia, unspecified organism (11) SIRS (systemic inflammatory response syndrome) Current visit: Yes Status: Acute Category: Medical Code(s): R65.10 - Systemic inflammatory response syndrome (SIRS) of non-infectious origin without acute organ dysfunction (12) Hypoxia Current visit: No Status: Acute Category: Medical Code(s): R09.02 - Hypoxemia - Assessment and plan all Dx Assessment and Plan for all problems:: Patient condition has worsened overnight. She seems to have pneumonia and sepsis, not a transfusion reaction. Will move to step down now, give IV fluid bolus of 30 mL/kg now, check lactate level, change antibiotics and check new sputum and blood cultures. Current treatment plan discussed with family at bedside.
--- NOTE | 2018-11-27 08:34 | Progress Note ---
Internal Medicine - PN: Subj *Date: 11/27/18 *Time: 08:31 Interval history: Patient moved to step down unit. BiPAP initiated, BP dropped to 70's systolic, dopamine started. BP now 120's systolic and patient is more alert now, initial Lactate normal. Exam Vital signs and Labs for Last 24 Hours: Temp Pulse Resp BP Pulse Ox 98.7 F 104 H 27 H 75/45 L 100 11/27/18 08:00 11/27/18 07:09 11/27/18 05:07 11/27/18 06:59 11/27/18 07:09 Laboratory Results - last 24 hr 11/25/18 17:20: Blood Type A Positive, Antibody Screen Positive, Crossmatch (AHG) See Detail 11/27/18 04:20: Hgb 10.0 L, Hct 30.3 L 11/27/18 04:20: PT 55.2 H, INR 5.64 H 11/27/18 04:20: Sodium 138, Potassium 4.2, Chloride 103, Carbon Dioxide 28, Anion Gap 11.2, BUN 16, Creatinine 1.14 H, Estimated Creat Clear 1, Estimated GFR 45 L, Est GFR ( Amer) 55 L, Glucose 249 H, Calcium 7.3 L D 11/27/18 04:20: Pre-Trans Blood Type A positive, Pre-Trans Vis Hemolysis No, Pre-Trans Antibody Scrn Positive 11/27/18 04:20: WBC 302.2 H* D, RBC 2.86 L D, Hgb 10.0 L, Hct 30.3 L, MCV 106.0 H, MCH 35.0 H, MCHC 33.0, RDW 19.7 H, Plt Count 304 D, MPV 8.0, Neut % (Auto) 8.5 L, Lymph % (Auto) 61.3 H, [place] % (Auto) 0.4 L, Eos % (Auto) 0.0 L, Baso % (Auto) 15.3 H, Neut # (Auto) 24.8 H, Lymph # (Auto) 180.0 H, [place] # (Auto) 1.2 H , Eos # (Auto) 0.1, Baso # (Auto) 44.8 H, Total Counted 100, Neutrophils % (Manual) 16 L, Band Neutrophils % 3.0, Lymphocytes % (Manual) 81 H, Platelet Estimate Normal, Hypochromasia 3+, Anisocytosis 2+, Macrocytosis 7 11/27/18 04:21: Urine Color Yellow, Urine Appearance Clear, Urine pH 6.0, Ur Specific [place] 1.020, Urine Protein 1+, Urine Glucose (UA) Negative, Urine Ketones Negative, Urine Blood 3+, Urine Nitrate Negative, Urine Bilirubin Negative, Urine Urobilinogen 0.2, Ur Leukocyte Esterase Negative, Urine RBC Tntc, Ur Squamous Epith Cells 3-5 11/27/18 04:56: Specimen Source Right radial, O2 % 100, ABG pH 7.11 L*, ABG pCO2 87.3 H, ABG pO2 81.7, ABG HCO3 27.0 H, ABG Total CO2 29.7 H, ABG O2 Saturation 91, ABG Base Excess -2.5 L, [place] Test N/a 11/27/18 07:15: Lactate 1.3 I & O for Last 24 hours: Intake & Output 11/24/18 11/25/18 11/26/18 11/27/18 11:59 11:59 11:59 11:59 Intake Total 1597 / 1597 2692 / 2692 Output Total 1999 900 / 900 Balance -403 / -403 1792 / 1792 Weight 5 lb 7 oz Microbiology Reports for the Last 24 Hours: Microbiology 11/26/18 04:20 Sputum - Expectorated Sputum Gram Stain - Final 11/26/18 04:20 Sputum - Expectorated Sputum Sputum Culture - Preliminary - *Routine Respiratory Exam Present: rales, rhonchi Comments: better air movement now - *Routine Cardiovascular Exam Present: RRR, tachycardia - *Routine Skin Exam Present: warm (brisk cap refill) Assessment and Plan (1) Anemia Current visit: Yes Status: Acute Qualifiers: Anemia type: unspecified type Qualified Code(s): D64.9 - Anemia, unspecified Category: Medical Code(s): D64.9 - Anemia, unspecified (2) Subtherapeutic international normalized ratio (INR) Current visit: No Status: Acute Category: Medical Code(s): R79.1 - Abnormal coagulation profile (3) Hypotension Current visit: Yes Status: Acute Qualifiers: Hypotension type: unspecified hypotension type Qualified Code(s): I95.9 - Hypotension, unspecified Category: Medical Code(s): I95.9 - Hypotension, unspecified (4) Acute bronchitis Current visit: Yes Status: Acute Qualifiers: Bronchitis organism: unspecified organism Qualified Code(s): J20.9 - Acute bronchitis, unspecified Category: Medical Code(s): J20.9 - Acute bronchitis, unspecified (5) Hyperbilirubinemia Current visit: Yes Status: Acute Category: Medical Code(s): E80.6 - Other disorders of bilirubin metabolism (6) Pulmonary hypertension Current visit: No Status: Chronic Category: Medical Code(s): I27.20 - Pulmonary hypertension, unspecified (7) Renal insufficiency Current visit: No Status: Chronic Category: Medical Code(s): N28.9 - Disorder of kidney and ureter, unspecified (8) 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 Category: Medical Code(s): C91.10 - Chronic lymphocytic leukemia of B-cell type not having achieved remission (9) History of pulmonary embolism Current visit: No Status: Chronic Category: Medical Code(s): Z86.711 - P ersonal history of pulmonary embolism (10) Pneumonia Current visit: Yes Status: Acute Qualifiers: Laterality: bilateral Lung location: unspecified part of lung Category: Medical Code(s): J18.9 - Pneumonia, unspecified organism (11) SIRS (systemic inflammatory response syndrome) Current visit: Yes Status: Acute Category: Medical Code(s): R65.10 - Systemic inflammatory response syndrome (SIRS) of non-infectious origin without acute organ dysfunction (12) Hypoxia Current visit: No Status: Acute Category: Medical Code(s): R09.02 - Hypoxemia - Assessment and plan all Dx Assessment and Plan for all problems:: Sepsis reassessment completed. Pt clinically has sepsis despite normal Lactate, will continue current treatment, O2 sat 100% now, will wean FiO2 as tolerated.
--- NOTE | 2018-11-27 10:42 | Pharmacy Consult Notes ---
- Pharmacy Consult Date: 11/27/18 Time: 10:41 Referring provider: DR. GONZÁLES Reason for Consult:: VANCOMYCIN DOSING Allergies and ADEs:: Allergies Allergy/AdvReac Type Severity Reaction Status Date / Time tramadol [TRAMADOL] AdvReac Intermediate NA-NAUSEA Verified 12/02/17 23:02 morphine [MORPHINE] AdvReac Mild NA-NAUSEA Verified 12/02/17 23:02 Home Medications:: Home Medications Medication Instructions Recorded Confirmed Type Acetaminophen with Codeine 1 - 2 tab PO TIDP PRN MDD 1-2 as 12/02/17 11/25/18 History [Tylenol with Codeine #3 needed tablet] Levothyroxine Sodium [Synthroid 150 mcg PO DAILY 12/02/17 11/25/18 History 150mcg (0.15mg) tablet] Montelukast Sodium [Montelukast 10 mg PO HS 12/02/17 11/25/18 History 10mg Tab] Promethazine HCl [Phenergan 12.5mg 12.5 mg PO Q6HP PRN 12/02/17 11/25/18 History tablet] Sertraline HCl [Zoloft 50mg tablet] 50 mg PO DAILY 12/02/17 11/25/18 History Temazepam [Restoril 30mg capsule] 30 mg PO HS 12/02/17 11/25/18 History Warfarin Sodium 5 mg PO DAILY 12/02/17 11/26/18 History Ondansetron [Zofran 4mg ODT] 4 mg PO TIDP PRN 12/03/17 11/25/18 History Furosemide [Furosemide 20mg Tab] 20 mg PO DAILY 03/20/18 11/25/18 History Polyethylene Glycol 3350 [Miralax 17 gm PO DAILY 03/20/18 11/25/18 History Powder] Potassium Citrate [Urocit-K] 10 meq PO DAILY 03/20/18 11/25/18 History Dicyclomine HCl 20 mg PO QID 11/26/18 11/26/18 History Ferrous Sulfate [Iron] 325 mg PO BID 11/26/18 11/26/18 History Gabapentin 800 mg PO TID 11/26/18 11/26/18 History Nitrofurantoin Monohyd/M-Cryst 100 mg PO BID 11/26/18 11/26/18 History [Nitrofurantoin [place]-Mcr 100 mg] Pantoprazole Sodium [Protonix 40mg 40 mg PO DAILY 11/26/18 11/26/18 History tablet] Height: 1.7 m Weight: 70.845 kg Laboratory Results:: Laboratory Results - last 24 hr 11/25/18 17:20: Crossmatch (AHG) See Detail 11/27/18 04:20: Hgb 10.0 L, Hct 30.3 L 11/27/18 04:20: PT 55.2 H, INR 5.64 H 11/27/18 04:20: Sodium 138, Potassium 4.2, Chloride 103, Carbon Dioxide 28, Anion Gap 11.2, BUN 16, Creatinine 1.14 H, Estimated Creat Clear 1, Estimated GFR 45 L, Est GFR ( Amer) 55 L, Glucose 249 H, Calcium 7.3 L D 11/27/18 04:20: Pre-Trans Blood Type A positive, Pre-Trans Vis Hemolysis No, Pre-Trans Antibody Scrn Positive 11/27/18 04:20: WBC 302.2 H* D, RBC 2.86 L D, Hgb 10.0 L, Hct 30.3 L, MCV 106.0 H, MCH 35.0 H, MCHC 33.0, RDW 19.7 H, Plt Count 304 D, MPV 8.0, Neut % (Auto) 8.5 L, Lymph % (Auto) 61.3 H, [place] % (Auto) 0.4 L, Eos % (Auto) 0.0 L, Baso % (Auto) 15.3 H, Neut # (Auto) 24.8 H, Lymph # (Auto) 180.0 H, [place] # (Auto) 1.2 H , Eos # (Auto) 0.1, Baso # (Auto) 44.8 H, Total Counted 100, Neutrophils % (Manual) 16 L, Band Neutrophils % 3.0, Lymphocytes % (Manual) 81 H, Platelet Estimate Normal, Hypochromasia 3+, Anisocytosis 2+, Macrocytosis 7 11/27/18 04:21: Urine Color Yellow, Urine Appearance Clear, Urine pH 6.0, Ur Specific [place] 1.020, Urine Protein 1+, Urine Glucose (UA) Negative, Urine Ketones Negative, Urine Blood 3+, Urine Nitrate Negative, Urine Bilirubin Negative, Urine Urobilinogen 0.2, Ur Leukocyte Esterase Negative, Urine RBC Tntc, Ur Squamous Epith Cells 3-5 11/27/18 04:56: Specimen Source Right radial, O2 % 100, ABG pH 7.11 L*, ABG pCO2 87.3 H, ABG pO2 81.7, ABG HCO3 27.0 H, ABG Total CO2 29.7 H, ABG O2 Saturation 91, ABG Base Excess -2.5 L, [place] Test N/a 11/27/18 07:15: Lactate 1.3 Medical History: Reports:: Cancer (chronic lymphocytic leukemia, colon), Depression, Hypertension, Pulmonary Embolism Denies:: Diabetes Mellitus Type 1, Diabetes Mellitus Type 2, MRSA Assessment and Plan (1) Anemia Current visit: Yes Status: Acute Qualifiers: Anemia type: unspecified type Qualified Code(s): D64.9 - Anemia, unspecified Category: Medical Code(s): D64.9 - Anemia, unspecified (2) Subtherapeutic international normalized ratio (INR) Current visit: No Status: Acute Category: Medical Code(s): R79.1 - Abnormal coagulation profile (3) Hypotension Current visit: Yes Status: Acute Qualifiers: Hypotension type: unspecified hypotension type Qualified Code(s): I95.9 - Hypotension, unspecified Category: Medical Code(s): I95.9 - Hypotension, unspecified (4) Acute bronchitis Current visit: Yes Status: Acute Qualifiers: Bronchitis organism: unspecified organism Qualified Code(s): J20.9 - Acute bronchitis, unspecified Category: Medical Code(s): J20.9 - Acute bronchitis, unspecified (5) Hyperbilirubinemia Current visit: Yes Status: Acute Category: Medical Code(s): E80.6 - Other disorders of bilirubin metabolism (6) Pulmonary hypertension Current visit: No Status: Chronic Category: Medical Code(s): I27.20 - Pulmonary hypertension, unspecified (7) Renal insufficiency Current visit: No Status: Chronic Category: Medical Code(s): N28.9 - Disorder of kidney and ureter, unspecified (8) 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 Category: Medical Code(s): C91.10 - Chronic lymphocytic leukemia of B-cell type not having achieved remission (9) History of pulmonary embolism Current visit: No Status: Chronic Category: Medical Code(s): Z86.711 - Personal history of pulmonary embolism (10) Pneumonia Current visit: Yes Status: Acute Qualifiers: Laterality: bilateral Lung location: unspecified part of lung Category: Medical Code(s): J18.9 - Pneumonia, unspecified organism (11) SIRS (systemic inflammatory response syndrome) Current visit: Yes Status: Acute Category: Medical Code(s): R65.10 - Systemic inflammatory response syndrome (SIRS) of non-infectious origin without acute organ dysfunction (12) Hypoxia Current visit: No Status: Acute Category: Medical Code(s): R09.02 - Hypoxemia - Assessment and plan all Dx Assessment and Plan for all problems:: BASED ON PATIENT FACTORS, RECOMMEND VANCOMYCIN 1 GM IV Q24H. PHARMACY WILL FOLLOW DAILY AND ADJUST APPROPRIATE.
[2018-11-27 17:16] LABS: Hepatitis B Core Antibody IgM Negative (Negative); Hepatitis B Surface Antigen Negative (Negative)
[2018-11-28 06:47] LABS: Basophils # 1.6 K/mm3 (0-0.2); Basophils % 1.6 % (0.1-2.0); Lymphocytes # 93.5 K/mm3 (0.7-4.5); Lymphocytes % 93.3 % (10-50); Mean Corpuscular HGB Conc 31.3 g/dL (31.8-35.4); Mean Corpuscular Hemoglobin 33.5 pg (27.0-31.2); Mean Corpuscular Volume 107.2 fl (81-99); Mean Platelet Volume 8.4 fl (7.4-10.4); Monocytes # 0.2 K/mm3 (0.1-1.0); Monocytes % 0.2 % (1.7-9.3); Neutrophils # 6.5 K/mm3 (1.8-7.8); Platelet Count 141 K/mm3 (142-424); Red Blood Count 2.22 M/mm3 (4.20-5.40); Red Cell Distribution Width 20.6 % (11.5-17.5)
[2018-11-28 07:00] LABS: INR 5.11 (0.9-1.1); Prothrombin Time 50.2 seconds (9.4-11.8)
[2018-11-28 07:24] LABS: Neutrophils % 6.5 % (37.0-80.0)
[2018-11-28 07:30] LABS: Hemoglobin 7.4 g/dL (12.2-16.2)
[2018-11-28 07:31] LABS: Albumin Level 2.9 gm/dL (3.4-5.0); Albumin/Globulin Ratio 1.2 (1.1-1.8); Anion Gap 12.3 mEq/L (5-15); Bilirubin,Total 1.2 mg/dL (0.2-1.0); Globulin 2.5 gm/dl (1.3-3.2); Potassium 3.3 mmoL/L (3.5-5.1); Total Protein,Serum 5.4 gm/dL (6.4-8.2); White Blood Count 100.2 K/mm3 (4.8-10.8)
[2018-11-28 07:32] LABS: Hematocrit 23.8 % (37.0-47.0)
[2018-11-28 07:37] LABS: Calcium 6.8 mg/dL (8.5-10.1)
--- NOTE | 2018-11-28 08:49 | Progress Note ---
Internal Medicine - PN: Subj *Date: 11/28/18 *Time: 08:44 Interval history: Patient much better today. She is alert and follows commands. She is on Vapotherm now. She does have some nausea and shortness of breath this morning. Exam Vital signs and Labs for Last 24 Hours: Temp Pulse Resp BP Pulse Ox 98.5 F 105 H 20 117/54 L 93 L 11/28/18 04:00 11/28/18 06:00 11/28/18 06:00 11/28/18 06:00 11/28/18 06:00 Laboratory Results - last 24 hr 11/28/18 05:37: WBC 100.2 H* D, RBC 2.22 L, Hgb 7.4 L*, Hct 23.8 L*, MCV 107.2 H , MCH 33.5 H, MCHC 31.3 L, RDW 20.6 H, Plt Count 141 L D, MPV 8.4, Neut % (Auto) 6.5 L, Lymph % (Auto) 93.3 H, [place] % (Auto) 0.2 L, Eos % (Auto) 0.0 L, Baso % (Auto) 1.6, Neut # (Auto) 6.5, Lymph # (Auto) 93.5 H, [place] # (Auto) 0.2, Eos # (Auto) 0.0, Baso # (Auto) 1.6 H 11/28/18 05:37: PT 50.2 H, INR 5.11 H 11/28/18 05:37: Sodium 138, Potassium 3.3 L D, Chloride 103, Carbon Dioxide 26, Anion Gap 12.3, BUN 20 H, Creatinine 1.17 H, Estimated Creat Clear 39, Estimated GFR 44 L, Est GFR ( Amer) 53 L, Glucose 127 H, Calcium 6.8 L, Total Bilirubin 1.2 H, AST 51 H D, ALT 26 D, Alkaline Phosphatase 93, Total Protein 5.4 L, Albumin 2.9 L, Globulin 2.5, Albumin/Globulin Ratio 1.2 I & O for Last 24 hours: Intake & Output 11/25/18 11/26/18 11/27/18 11/28/18 11:59 11:59 11:59 11:59 Intake Total 1597 / 1597 2692 / 2692 4502 / 4502 Output Total 1999 900 / 900 3525 / 3525 Balance -403 / -403 1792 / 1792 977 / 977 Weight 5 lb 7 oz 156 lb 3 oz 157 lb 1 oz Microbiology Reports for the Last 24 Hours: Microbiology 11/27/18 03:30 Sputum - Endotracheal Tube Aspirate Gram Stain - Final 11/27/18 03:30 Sputum - Endotracheal Tube Aspirate Sputum Culture - Preliminary 11/26/18 04:20 Sputum - Expectorated Sputum Gram Stain - Final 11/26/18 04:20 Sputum - Expectorated Sputum Sputum Culture - Final Normal Respiratory Ruth 11/25/18 16:15 Blood Blood Culture - Preliminary NO GROWTH AFTER 48 HOURS 11/25/18 16:15 Blood Blood Culture - Preliminary NO GROWTH AFTER 48 HOURS - Constitutional mild distress - *Routine HEENT Exam Head: Present: normocephalic ENT: Present: mucous membranes moist - *Routine Neck Exam Present: supple. Absent: lymphadenopathy - *Routine Respiratory Exam Present: rales, rhonchi, wheezes - *Routine Cardiovascular Exam Present: RRR, tachycardia - *Routine Abdominal Exam Present: soft, normoactive bowel sounds. Absent: tenderness - *Routine Extremities Exam Absent: cyanosis, clubbing, edema - *Routine Skin Exam Present: warm. Absent: rash - *Routine Neurological Exam Present: alert Assessment and Plan (1) Anemia Current visit: Yes Status: Acute Qualifiers: Anemia type: unspecified type Qualified Code(s): D64.9 - Anemia, unspecified Category: Medical Code(s): D64.9 - Anemia, unspecified (2) Subtherapeutic international normalized ratio (INR) Current visit: No Status: Acute Category: Medical Code(s): R79.1 - Abnormal coagulation profile (3) Hypotension Current visit: Yes Status: Acute Qualifiers: Hypotension type: unspecified hypotension type Qualified Code(s): I95.9 - Hypotension, unspecified Category: Medical Code(s): I95.9 - Hypotension, unspecified (4) Acute bronchitis Current visit: Yes Status: Acute Qualifiers: Bronchitis organism: unspecified organism Qualified Code(s): J20.9 - Acute bronchitis, unspecified Category: Medical Code(s): J20.9 - Acute bronchitis, unspecified (5) Hyperbilirubinemia Current visit: Yes Status: Acute Category: Medical Code(s): E80.6 - Other disorders of bilirubin metabolism (6) Pulmonary hypertension Current visit: No Status: Chronic Category: Medical Code(s): I27.20 - Pulmonary hypertension, unspecified (7) Renal insufficiency Current visit: No Status: Chronic Category: Medical Code(s): N28.9 - Disorder of kidney and ureter, unspecified (8) 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 Category: Medical Code(s): C91.10 - Chronic lymphocytic leukemia of B-cell type not having achieved remission (9) History of pulmonary embolism Current visit: No Status: Chronic Category: Medical Code(s): Z86.711 - Personal history of pulmonary embolism (10) Pneumonia Current visit: Yes Status: Acute Qualifiers: Laterality: bilateral Lung location: unspecified part of lung Category: Medical Code(s): J18.9 - Pneumonia, unspecified organism (11) SIRS (systemic inflammatory response syndrome) Current visit: Yes Status: Acute Category: Medical Code(s): R65.10 - Systemic inflammatory response syndrome (SIRS) of non-infectious origin without acute organ dysfunction (12) Hypoxia Current visit: No Status: Acute Category: Medical Code(s): R09.02 - Hypoxemia - Assessment and plan all Dx Assessment and Plan for all problems:: Patient has improved in the past 24 hours, will check ABG now and follow up with blood center about possible transfusion reaction as patient will likely need more blood. Cultures are negative so far, continue Vanc and Zosyn. BP is higher, Dopamine is being weaned off.
--- NOTE | 2018-11-28 09:02 | Progress Note ---
<Suzi Adames - Last Filed: 11/28/18 08:59> Internal Medicine - PN: Subj *Date: 11/28/18 *Time: 08:59 Interval history: Saw patient today at about 8:00 in the morning. Son at bedside. Patient is complaining that she cannot breathe and is very hot. Given 40 of Lasix IV and Phenergan 6.25 mg IV for her nausea. Exam Vital signs and Labs for Last 24 Hours: Temp Pulse Resp BP Pulse Ox 98.5 F 105 H 20 117/54 L 93 L 11/28/18 04:00 11/28/18 06:00 11/28/18 06:00 11/28/18 06:00 11/28/18 06:00 Laboratory Results - last 24 hr 11/28/18 05:37: WBC 100.2 H* D, RBC 2.22 L, Hgb 7.4 L*, Hct 23.8 L*, MCV 107.2 H , MCH 33.5 H, MCHC 31.3 L, RDW 20.6 H, Plt Count 141 L D, MPV 8.4, Neut % (Auto) 6.5 L, Lymph % (Auto) 93.3 H, [place] % (Auto) 0.2 L, Eos % (Auto) 0.0 L, Baso % (Auto) 1.6, Neut # (Auto) 6.5, Lymph # (Auto) 93.5 H, [place] # (Auto) 0.2, Eos # (Auto) 0.0, Baso # (Auto) 1.6 H 11/28/18 05:37: PT 50.2 H, INR 5.11 H 11/28/18 05:37: Sodium 138, Potassium 3.3 L D, Chloride 103, Carbon Dioxide 26, Anion Gap 12.3, BUN 20 H, Creatinine 1.17 H, Estimated Creat Clear 39, Estimated GFR 44 L, Est GFR ( Amer) 53 L, Glucose 127 H, Calcium 6.8 L, Total Bilirubin 1.2 H, AST 51 H D, ALT 26 D, Alkaline Phosphatase 93, Total Protein 5.4 L, Albumin 2.9 L, Globulin 2.5, Albumin/Globulin Ratio 1.2 I & O for Last 24 hours: Intake & Output 11/25/18 11/26/18 11/27/18 11/28/18 11:59 11:59 11:59 11:59 Intake Total 1597 / 1597 2692 / 2692 4502 / 4502 Output Total 1999 900 / 900 3525 / 3525 Balance -403 / -403 1792 / 1792 977 / 977 Weight 5 lb 7 oz 156 lb 3 oz 157 lb 1 oz Microbiology Reports for the Last 24 Hours: Microbiology 11/27/18 03:30 Sputum - Endotracheal Tube Aspirate Gram Stain - Final 11/27/18 03:30 Sputum - Endotracheal Tube Aspirate Sputum Culture - Preliminary 11/26/18 04:20 Sputum - Expectorated Sputum Gram Stain - Final 11/26/18 04:20 Sputum - Expectorated Sputum Sputum Culture - Final Normal Respiratory Ruth 11/25/18 16:15 Blood Blood Culture - Preliminary NO GROWTH AFTER 48 HOURS 11/25/18 16:15 Blood Blood Culture - Preliminary NO GROWTH AFTER 48 HOURS - Constitutional Comments: Respiratory distress. - *Routine Respiratory Exam Comments: Bilateral coarse crackles and wheezing - *Routine Cardiovascular Exam Present: RRR Comments: Sinus tach on monitor - *Routine Abdominal Exam Present: soft, normoactive bowel sounds. Absent: tenderness - *Routine Exam Comments: Mccann cath to bedside drainage - *Routine Extremities Exam Absent: edema, calf tenderness - *Routine Neurological Exam Present: alert - Routine Psychiatric Exam Present: anxious Assessment and Plan (1) Anemia Current visit: Yes Status: Acute Qualifiers: Anemia type: unspecified type Qualified Code(s): D64.9 - Anemia, unspecified Category: Medical Code(s): D64.9 - Anemia, unspecified (2) Subtherapeutic international normalized ratio (INR) Current visit: No Status: Acute Category: Medical Code(s): R79.1 - Abnormal coagulation profile (3) Hypotension Current visit: Yes Status: Acute Qualifiers: Hypotension type: unspecified hypotension type Qualified Code(s): I95.9 - Hypotension, unspecified Category: Medical Code(s): I95.9 - Hypotension, unspecified (4) Acute bronchitis Current visit: Yes Status: Acute Qualifiers: Bronchitis organism: unspecified organism Qualified Code(s): J20.9 - Acute bronchitis, unspecified Category: Medical Code(s): J20.9 - Acute bronchitis, unspecified (5) Hyperbilirubinemia Current visit: Yes Status: Acute Category: Medical Code(s): E80.6 - Other disorders of bilirubin metabolism (6) Pulmonary hypertension Current visit: No Status: Chronic Category: Medical Code(s): I27.20 - Pulmonary hypertension, unspecified (7) Renal insufficiency Current visit: No Status: Chronic Category: Medical Code(s): N28.9 - Disorder of kidney and ureter, unspecified (8) 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 Category: Medical Code(s): C91.10 - Chronic lymphocytic leukemia of B-cell type not having achieved remission (9) History of pulmonary embolism Current visit: No Status: Chronic Category: Medical Code(s): Z86.711 - Personal history of pulmonary embolism (10) Pneumonia Current visit: Yes Status: Acute Qualifiers: Laterality: bilateral Lung location: unspecified part of lung Category: Medical Code(s): J18.9 - Pneumonia, unspecified organism (11) SIRS (systemic inflammatory response syndrome) Current visit: Yes Status: Acute Category: Medical Code(s): R65.10 - Systemic inflammatory response syndrome (SIRS) of non-infectious origin without acute organ dysfunction (12) Hypoxia Current visit: No Status: Acute Category: Medical Code(s): R09.02 - Hypoxemia - Assessment and plan all Dx Assessment and Plan for all problems:: Has been given 40 mg of Lasix IV and 12.5 mg of Phenergan. Further as per Dr. Mckeon <Hiren Mckeon - Last Filed: 11/28/18 12:49> Exam Vital signs and Labs for Last 24 Hours: Temp Pulse Resp BP Pulse Ox 100.8 F H 99 H 24 106/58 L 98 11/28/18 12:00 11/28/18 12:00 11/28/18 12:00 11/28/18 12:00 11/28/18 12:00 Laboratory Results - last 24 hr 11/28/18 05:37: WBC 100.2 H* D, RBC 2.22 L, Hgb 7.4 L*, Hct 23.8 L*, MCV 107.2 H , MCH 33.5 H, MCHC 31.3 L, RDW 20.6 H, Plt Count 141 L D, MPV 8.4, Neut % (Auto) 6.5 L, Lymph % (Auto) 93.3 H, [place] % (Auto) 0.2 L, Eos % (Auto) 0.0 L, Baso % (Auto) 1.6, Neut # (Auto) 6.5, Lymph # (Auto) 93.5 H, [place] # (Auto) 0.2, Eos # (Auto) 0.0, Baso # (Auto) 1.6 H, Total Counted 200, Neutrophils % (Manual) 4 L, Lymphocytes % (Manual) 96 H, Atypical Lymphs % 0.5, Monocytes % (Manual) 1 L, Platelet Estimate Slight decrease, Macrocytosis 2+, Tear Drop Cells 1+ 11/28/18 05:37: PT 50.2 H, INR 5.11 H 11/28/18 05:37: Sodium 138, Potassium 3.3 L D, Chloride 103, Carbon Dioxide 26, Anion Gap 12.3, BUN 20 H, Creatinine 1.17 H, Estimated Creat Clear 39, Estimated GFR 44 L, Est GFR ( Amer) 53 L, Glucose 127 H, Calcium 6.8 L, Total Bilirubin 1.2 H, AST 51 H D, ALT 26 D, Alkaline Phosphatase 93, Total Protein 5.4 L, Albumin 2.9 L, Globulin 2.5, Albumin/Globulin Ratio 1.2 11/28/18 08:50: Specimen Source Right radial, O2 % 40% vapotherm, ABG pH 7.33 L, ABG pCO2 48.4 H, ABG pO2 66.3 L, ABG HCO3 24.9, ABG Total CO2 26.4, ABG O2 Saturation 91, ABG Base Excess -1.1, [place] Test Acceptable I & O for Last 24 hours: Intake & Output 11/26/18 11/27/18 11/28/18 11/29/18 11:59 11:59 11:59 11:59 Intake Total 1597 / 1597 2692 / 2692 4502 / 4502 Output Total 1999 / 1999 900 / 900 3525 / 3525 Balance -403 / -403 1792 / 1792 977 / 977 Weight 5 lb 7 oz 156 lb 3 oz 157 lb 1 oz 157 lb Microbiology Reports for the Last 24 Hours: Microbiology 11/27/18 03:30 Sputum - Endotracheal Tube Aspirate Gram Stain - Final 11/27/18 03:30 Sputum - Endotracheal Tube Aspirate Sputum Culture - Preliminary 11/26/18 04:20 Sputum - Expectorated Sputum Gram Stain - Final 11/26/18 04:20 Sputum - Expectorated Sputum Sputum Culture - Final Normal Respiratory Ruth 11/25/18 16:15 Blood Blood Culture - Preliminary NO GROWTH AFTER 48 HOURS 11/25/18 16:15 Blood Blood Culture - Preliminary NO GROWTH AFTER 48 HOURS Assessment and Plan (1) Anemia Current visit: Yes Status: Acute Qualifiers: Anemia type: unspecified type Qualified Code(s): D64.9 - Anemia, unspecified Category: Medical Code(s): D64.9 - Anemia, unspecified (2) Subtherapeutic international normalized ratio (INR) Current visit: No Status: Acute Category: Medical Code(s): R79.1 - Abnormal coagulation profile (3) Hypotension Current visit: Yes Status: Acute Qualifiers: Hypotension type: unspecified hypotension type Qualified Code(s): I95.9 - Hypotension, unspecified Category: Medical Code(s): I95.9 - Hypotension, unspecified (4) Acute bronchitis Current visit: Yes Status: Acute Qualifiers: Bronchitis organism: unspecified organism Qualified Code(s): J20.9 - Acute bronchitis, unspecified Category: Medical Code(s): J20.9 - Acute bronchitis, unspecified (5) Hyperbilirubinemia Current visit: Yes Status: Acute Category: Medical Code(s): E80.6 - Other disorders of bilirubin metabolism (6) Pulmonary hypertension Current visit: No Status: Chronic Category: Medical Code(s): I27.20 - Pulmonary hypertension, unspecified (7) Renal insufficiency Current visit: No Status: Chronic Category: Medical Code(s): N28.9 - Disorder of kidney and ureter, unspecified (8) 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 Category: Medical Code(s): C91.10 - Chronic lymphocytic leukemia of B-cell type not having achieved remission (9) History of pulmonary embolism Current visit: No Status: Chronic Category: Medical Code(s): Z86.711 - Personal history of pulmonary embolism (10) Pneumonia Current visit: Yes Status: Acute Qualifiers: Laterality: bilateral Lung location: unspecified part of lung Category: Medical Code(s): J18.9 - Pneumonia, unspecified organism (11) SIRS (systemic inflammatory response syndrome) Current visit: Yes Status: Acute Category: Medical Code(s): R65.10 - Systemic inflammatory response syndrome (SIRS) of non-infectious origin without acute organ dysfunction (12) Hypoxia Current visit: No Status: Acute Category: Medical Code(s): R09.02 - Hypoxemia - Assessment and plan all Dx Assessment and Plan for all problems:: Saw patient, agree with above note.
[2018-11-28 09:15] LABS: ABG Base Excess -1.1 mmol/L (-2.4-2.3); ABG HCO3 24.9 mmhg (22.0-26.0); ABG Oxygen Saturation 91 % (90-100); ABG PCO2 48.4 mmhg (35.0-45.0); ABG PH 7.33 mmol/L (7.35-7.45); ABG PO2 66.3 mmhg (80-100); ABG TCO2 26.4 mmhg (23-27)
[2018-11-28 09:17] LABS: Allen's Test Acceptable; Oxygen 40% VAPOTHERM %
[2018-11-28 09:21] LABS: Lymphocytes % 96 % (10-50); Macrocytosis 2+; Monocytes % 1 % (2-9); Neutrophils % 4 % (42-76); Total Cells Counted 200
[2018-11-28 09:23] LABS: Tear Drop Cells 1+
[2018-11-28 13:24] LABS: Hepatitis C Antibody <0.1 s/co ratio (0.0-0.9)
--- NOTE | 2018-11-28 18:53 | Progress Note ---
Acute Rapid Response Note - Subjective Date Responded: 11/28/18 Time Responded: 18:48 Provider Note: I responded to the page from Miss. Palomo's nurse. Nurse mentioned that she was doing worse now compared to this am. She was having labored breathing and family was concerned. I walked in to see patient was having shallow breathing and was complaining of respiratory distress despite of being on vapotherm. I had ordered STAT xray, ABG and 40mg of lasix at this time. We also increased the vapotherm to 50 at this time. I will monitor her response throughout this night. - Objective Findings: Vital Signs - Last 4 Hours Temperature 100.8 F H 11/28/18 12:00 Temperature Source Rectal 11/28/18 12:00 Pulse Rate 93 H 11/28/18 16:00 Respiratory Rate 20 11/28/18 16:00 TAR Vitals Timing 1 Hour Post Infusion 11/26/18 14:45 Blood Pressure 96/52 L 11/28/18 16:00 Blood Pressure Mean 66 11/28/18 16:00 Blood Pressure Source Automatic Cuff 11/28/18 16:00 Blood Pressure Position Sitting 11/28/18 16:00 02 Sat by Pulse Oximetry 96 11/28/18 16:00 Oxygen Delivery Method 11/28/18 16:00 Oxygen Flow Rate (LPM) 40 11/28/18 16:00 Lab Results for Past 12 Hours 11/28/18 17:30: Stool Occult Blood Positive A 11/28/18 08:50: Specimen Source Right radial, O2 % 40% vapotherm, ABG pH 7.33 L, ABG pCO2 48.4 H, ABG pO2 66.3 L, ABG HCO3 24.9, ABG Total CO2 26.4, ABG O2 Saturation 91, ABG Base Excess -1.1, [place] Test Acceptable 11/28/18 05:37: Sodium 138, Potassium 3.3 L D, Chloride 103, Carbon Dioxide 26, Anion Gap 12.3, BUN 20 H, Creatinine 1.17 H, Estimated Creat Clear 39, Estimated GFR 44 L, Est GFR ( Amer) 53 L, Glucose 127 H, Calcium 6.8 L, Total Bilirubin 1.2 H, AST 51 H D, ALT 26 D, Alkaline Phosphatase 93, Total Protein 5.4 L, Albumin 2.9 L, Globulin 2.5, Albumin/Globulin Ratio 1.2 11/28/18 05:37: PT 50.2 H, INR 5.11 H 11/28/18 05:37: WBC 100.2 H* D, RBC 2.22 L, Hgb 7.4 L*, Hct 23.8 L*, MCV 107.2 H , MCH 33.5 H, MCHC 31.3 L, RDW 20.6 H, Plt Count 141 L D, MPV 8.4, Neut % (Auto) 6.5 L, Lymph % (Auto) 93.3 H, [place] % (Auto) 0.2 L, Eos % (Auto) 0.0 L, Baso % (Auto) 1.6, Neut # (Auto) 6.5, Lymph # (Auto) 93.5 H, [place] # (Auto) 0.2, Eos # (Auto) 0.0, Baso # (Auto) 1.6 H, Total Counted 200, Neutrophils % (Manual) 4 L, Lymphocytes % (Manual) 96 H, Atypical Lymphs % 0.5, Monocytes % (Manual) 1 L, Platelet Estimate Slight decrease, Macrocytosis 2+, Tear Drop Cells 1+ 11/25/18 16:15: Hepatitis A IgM Ab Negative, Hep Bs Antigen Negative, Hep B Core IgM Ab Negative, Hepatitis C Antibody <0.1 Rapid Response Exam - General General appearance: alert, anxious, in distress (on 40 Fio2 of vapotherm) - Head Head exam: atraumatic - Eye Eye exam: Present: normal appearance - Respiratory Respiratory exam: Present: respiratory distress (crackles heard bilaterally on lower half of her lungs) - Cardiovascular Cardiovascular exam: Present: regular rate (BP was 114/60 during exam) - Abdominal Exam Abdominal exam: Present: soft. Absent: distention, tenderness - Skin Skin exam: Present: warm, diaphoresis
[2018-11-28 19:03] LABS: ABG Base Excess -1.2 mmol/L (-2.4-2.3); ABG HCO3 25.2 mmhg (22.0-26.0); ABG Oxygen Saturation 93 % (90-100); ABG PO2 71.5 mmhg (80-100); ABG TCO2 26.8 mmhg (23-27)
[2018-11-28 19:07] LABS: ABG PCO2 52.2 mmhg (35.0-45.0); Allen's Test Patient Unable
[2018-11-29 06:32] LABS: Basophils # 2.2 K/mm3 (0-0.2); Basophils % 2.6 % (0.1-2.0); Lymphocytes # 76.4 K/mm3 (0.7-4.5); Lymphocytes % 91.2 % (10-50); Mean Corpuscular HGB Conc 30.8 g/dL (31.8-35.4); Mean Corpuscular Hemoglobin 33.5 pg (27.0-31.2); Mean Corpuscular Volume 108.4 fl (81-99); Mean Platelet Volume 8.3 fl (7.4-10.4); Monocytes # 0.2 K/mm3 (0.1-1.0); Monocytes % 0.2 % (1.7-9.3); Neutrophils # 5.1 K/mm3 (1.8-7.8); Platelet Count 103 K/mm3 (142-424); Red Blood Count 2.03 M/mm3 (4.20-5.40); Red Cell Distribution Width 19.6 % (11.5-17.5)
[2018-11-29 06:38] LABS: Anion Gap 11.2 mEq/L (5-15); Potassium 3.2 mmoL/L (3.5-5.1)
[2018-11-29 06:51] LABS: Neutrophils % 6.1 % (37.0-80.0)
[2018-11-29 06:53] LABS: Hemoglobin 6.8 g/dL (12.2-16.2); White Blood Count 83.8 K/mm3 (4.8-10.8)
[2018-11-29 07:02] LABS: ABG Base Excess -1.2 mmol/L (-2.4-2.3); ABG HCO3 25.2 mmhg (22.0-26.0); ABG Oxygen Saturation 93 % (90-100); ABG PCO2 52.2 mmhg (35.0-45.0); ABG PO2 71.5 mmhg (80-100); ABG TCO2 26.8 mmhg (23-27)
[2018-11-29 07:03] LABS: Allen's Test ACCEPTABLE; Oxygen 40% 40 LPM %
[2018-11-29 07:18] LABS: Prothrombin Time 42.8 seconds (9.4-11.8)
[2018-11-29 07:19] LABS: INR 4.34 (0.9-1.1)
--- NOTE | 2018-11-29 07:48 | Progress Note ---
<Suzi Adames - Last Filed: 11/29/18 07:45> Internal Medicine - PN: Subj *Date: 11/29/18 *Time: 07:45 Interval history: Per nursing patient had a more restful night. She and additional dosage of Lasix last night with an increase in urinary output. Breathing has been easier. She remains on BiPAP. Dopamine drip is off. Patient not awakened during physical assessment. Potassium is low at 3.2. Hemoglobin is 6.8. Renal function is a little more elevated today at 1.26. INR has decreased to 4.34 Exam Vital signs and Labs for Last 24 Hours: Temp Pulse Resp BP Pulse Ox 98.5 F 86 17 100/57 L 99 11/29/18 04:00 11/29/18 06:00 11/29/18 06:00 11/29/18 06:00 11/29/18 06:00 Laboratory Results - last 24 hr 11/25/18 16:15: Hepatitis A IgM Ab Negative, Hep Bs Antigen Negative, Hep B Core IgM Ab Negative, Hepatitis C Antibody <0.1 11/28/18 05:37: Total Counted 200, Neutrophils % (Manual) 4 L, Lymphocytes % (M anual) 96 H, Atypical Lymphs % 0.5, Monocytes % (Manual) 1 L, Platelet Estimate Slight decrease, Macrocytosis 2+, Tear Drop Cells 1+ 11/28/18 08:50: Specimen Source Right radial, O2 % 40% vapotherm, ABG pH 7.33 L, ABG pCO2 48.4 H, ABG pO2 66.3 L, ABG HCO3 24.9, ABG Total CO2 26.4, ABG O2 Saturation 91, ABG Base Excess -1.1, [place] Test Acceptable 11/28/18 17:30: Stool Occult Blood Positive A 11/28/18 17:30: Stl Aeromonas (PCR) Not detected, Stl C. cayetanensis PCR Not detected, Stool Rotavirus (PCR) Not detected, Stl Adenov F 40/41 PCR Not detected, Stool Astrovirus (PCR) Not detected, Stool Campylobacter PCR Not detected, Stl C.difficile Tox PCR Not detected, Stool Cryptosporidium PCR Not detected, Stl E.coli Shiga Tox PCR Not detected, Stool E coli O157 PCR Not detected, Stl Enterotoxigenic E PCR Not detected, Stool EPEC (PCR) Not detected, Stool EAEC (PCR) Not detected, Stl E. histolytica PCR Not detected, Stool Giardia Lamblia PCR Not detected, Stool Salmonella PCR Not detected, Stool Sapovirus (PCR) Not detected, Stl P. shigelloides PCR Not detected, Stl Shigella/EIEC PCR Not detected, St Y.enterocolitica PCR Not detected, Stool Vibrio (PCR) Not detected, Stl Vibrio cholerae PCR Not detected, Stl Norovirus GI/GII PCR Not detected 11/28/18 18:48: Specimen Source R radial, O2 % 40% 40 lpm, ABG pH 7.30 L, ABG pCO2 52.2 H, ABG pO2 71.5 L, ABG HCO3 25.2, ABG Total CO2 26.8, ABG O2 Saturation 93, ABG Base Excess -1.2, [place] Test Acceptable 11/29/18 05:40: WBC 83.8 H*, RBC 2.03 L, Hgb 6.8 L*, Hct 22.0 L*, MCV 108.4 H, MCH 33.5 H, MCHC 30.8 L, RDW 19.6 H, Plt Count 103 L D, MPV 8.3, Neut % (Auto) 6.1 L, Lymph % (Auto) 91.2 H, [place] % (Auto) 0.2 L, Eos % (Auto) 0.0 L, Baso % (Auto) 2.6 H, Neut # (Auto) 5.1, Lymph # (Auto) 76.4 H, [place] # (Auto) 0.2, Eos # (Auto) 0.0, Baso # (Auto) 2.2 H 11/29/18 05:40: Sodium 137, Potassium 3.2 L, Chloride 101, Carbon Dioxide 28, Anion Gap 11.2, BUN 18, Creatinine 1.26 H, Estimated Creat Clear 40, Estimated GFR 40 L, Est GFR ( Amer) 49 L, Glucose 97, Calcium 7.0 L 11/29/18 05:40: PT 42.8 H, INR 4.34 H I & O for Last 24 hours: Intake & Output 11/26/18 11/27/18 11/28/18 11/29/18 11:59 11:59 11:59 11:59 Intake Total 1597 / 1597 2692 / 2692 4502 / 4502 2618 / 2618 Output Total 1999 / 1999 900 / 900 3525 / 3525 2750 / 2750 Balance -403 / -403 1792 / 1792 977 / 977 -132 / -132 Weight 5 lb 7 oz 156 lb 3 oz 157 lb 1 oz 174 lb 8 oz Microbiology Reports for the Last 24 Hours: Microbiology 11/27/18 07:15 Blood Blood Culture - Preliminary NO GROWTH AFTER 48 HOURS 11/27/18 07:15 Blood Blood Culture - Preliminary NO GROWTH AFTER 48 HOURS 11/27/18 03:30 Sputum - Endotracheal Tube Aspirate Gram Stain - Final 11/27/18 03:30 Sputum - Endotracheal Tube Aspirate Sputum Culture - Final Yeast 11/26/18 04:20 Sputum - Expectorated Sputum Gram Stain - Final 11/26/18 04:20 Sputum - Expectorated Sputum Sputum Culture - Final Normal Respiratory Ruth Radiology Reports for the Last 24 Hours: Chest x-ray 11/28/2018 IMPRESSION: Overall no change in the bilateral airspace disease with small left effusion. - Constitutional no acute distress Comments: Breathing easier. Did not awaken during assessment. - *Routine Respiratory Exam Present: rhonchi (Anteriorly) - *Routine Cardiovascular Exam Present: RRR - *Routine Abdominal Exam Present: soft, normoactive bowel sounds - *Routine Extremities Exam Absent: edema Assessment and Plan (1) Anemia Current visit: Yes Status: Acute Qualifiers: Anemia type: unspecified type Qualified Code(s): D64.9 - Anemia, unspecified Category: Medical Code(s): D64.9 - Anemia, unspecified (2) Subtherapeutic international normalized ratio (INR) Current visit: No Status: Acute Category: Medical Code(s): R79.1 - Abnormal coagulation profile (3) Hypotension Current visit: Yes Status: Acute Qualifiers: Hypotension type: unspecified hypotension type Qualified Code(s): I95.9 - Hypotension, unspecified Category: Medical Code(s): I95.9 - Hypotension, unspecified (4) Acute bronchitis Current visit: Yes Status: Acute Qualifiers: Bronchitis organism: unspecified organism Qualified Code(s): J20.9 - Acute bronchitis, unspecified Category: Medical Code(s): J20.9 - Acute bronchitis, unspecified (5) Hyperbilirubinemia Current visit: Yes Status: Acute Category: Medical Code(s): E80.6 - Other disorders of bilirubin metabolism (6) Pulmonary hypertension Current visit: No Status: Chronic Category: Medical Code(s): I27.20 - Pulmonary hypertension, unspecified (7) Renal insufficiency Current visit: No Status: Chronic Category: Medical Code(s): N28.9 - Disorder of kidney and ureter, unspecified (8) 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 Category: Medical Code(s): C91.10 - Chronic lymphocytic leukemia of B-cell type not having achieved remission (9) History of pulmonary embolism Current visit: No Status: Chronic Category: Medical Code(s): Z86.711 - Personal history of pulmonary embolism (10) Pneumonia Current visit: Yes Status: Acute Qualifiers: Laterality: bilateral Lung location: unspecified part of lung Category: Medical Code(s): J18.9 - Pneumonia, unspecified organism (11) SIRS (systemic inflammatory response syndrome) Current visit: Yes Status: Acute Category: Medical Code(s): R65.10 - Systemic inflammatory response syndrome (SIRS) of non-infectious origin without acute organ dysfunction (12) Hypoxia Current visit: No Status: Acute Category: Medical Code(s): R09.02 - Hypoxemia - Assessment and plan all Dx Assessment and Plan for all problems:: Will increase potassium. Will discuss further care with Dr. Mckeon <Hiren Mckeon - Last Filed: 11/29/18 08:59> Exam Vital signs and Labs for Last 24 Hours: Temp Pulse Resp BP Pulse Ox 98.5 F 86 17 100/57 L 99 11/29/18 04:00 11/29/18 06:00 11/29/18 06:00 11/29/18 06:00 11/29/18 06:00 Laboratory Results - last 24 hr 11/25/18 16:15: Hepatitis A IgM Ab Negative, Hep Bs Antigen Negative, Hep B Core IgM Ab Negative, Hepatitis C Antibody <0.1 11/28/18 05:37: Total Counted 200, Neutrophils % (Manual) 4 L, Lymphocytes % (Manual) 96 H, Atypical Lymphs % 0.5, Monocytes % (Manual) 1 L, Platelet Estimate Slight decrease, Macrocytosis 2+, Tear Drop Cells 1+ 11/28/18 08:50: Specimen Source Right radial, O2 % 40% vapotherm, ABG pH 7.33 L, ABG pCO2 48.4 H, ABG pO2 66.3 L, ABG HCO3 24.9, ABG Total CO2 26.4, ABG O2 Saturation 91, ABG Base Excess -1.1, [place] Test Acceptable 11/28/18 17:30: Stool Occult Blood Positive A 11/28/18 17:30: Stl Aeromonas (PCR) Not detected, Stl C. cayetanensis PCR Not detected, Stool Rotavirus (PCR) Not detected, Stl Adenov F 40/41 PCR Not detected, Stool Astrovirus (PCR) Not detected, Stool Campylobacter PCR Not detected, Stl C.difficile Tox PCR Not detected, Stool Cryptosporidium PCR Not detected, Stl E.coli Shiga Tox PCR Not detected, Stool E coli O157 PCR Not detected, Stl Enterotoxigenic E PCR Not detected, Stool EPEC (PCR) Not detected, Stool EAEC (PCR) Not detected, Stl E. histolytica PCR Not detected, Stool Giardia Lamblia PCR Not detected, Stool Salmonella PCR Not detected, Stool Sapovirus (PCR) Not detected, Stl P. shigelloides PCR Not detected, Stl Shigella/EIEC PCR Not detected, St Y.enterocolitica PCR Not detected, Stool Vibrio (PCR) Not detected, Stl Vibrio cholerae PCR Not detected, Stl Norovirus GI/GII PCR Not detected 11/28/18 18:48: Specimen Source R radial, O2 % 40% 40 lpm, ABG pH 7.30 L, ABG p CO2 52.2 H, ABG pO2 71.5 L, ABG HCO3 25.2, ABG Total CO2 26.8, ABG O2 Saturation 93, ABG Base Excess -1.2, [place] Test Acceptable 11/29/18 05:40: WBC 83.8 H*, RBC 2.03 L, Hgb 6.8 L*, Hct 22.0 L*, MCV 108.4 H, MCH 33.5 H, MCHC 30.8 L, RDW 19.6 H, Plt Count 103 L D, MPV 8.3, Neut % (Auto) 6.1 L, Lymph % (Auto) 91.2 H, [place] % (Auto) 0.2 L, Eos % (Auto) 0.0 L, Baso % (Auto) 2.6 H, Neut # (Auto) 5.1, Lymph # (Auto) 76.4 H, [place] # (Auto) 0.2, Eos # (Auto) 0.0, Baso # (Auto) 2.2 H 11/29/18 05:40: Sodium 137, Potassium 3.2 L, Chloride 101, Carbon Dioxide 28, Anion Gap 11.2, BUN 18, Creatinine 1.26 H, Estimated Creat Clear 40, Estimated GFR 40 L, Est GFR ( Amer) 49 L, Glucose 97, Calcium 7.0 L 11/29/18 05:40: PT 42.8 H, INR 4.34 H I & O for Last 24 hours: Intake & Output 11/26/18 11/27/18 11/28/18 11/29/18 11:59 11:59 11:59 11:59 Intake Total 1597 / 1597 2692 / 2692 4502 / 4502 2618 / 2618 Output Total 1999 / 1999 900 / 900 3525 / 3525 2750 / 2750 Balance -403 / -403 1792 / 1792 977 / 977 -132 / -132 Weight 5 lb 7 oz 156 lb 3 oz 157 lb 1 oz 174 lb 8 oz Microbiology Reports for the Last 24 Hours: Microbiology 11/27/18 07:15 Blood Blood Culture - Preliminary NO GROWTH AFTER 48 HOURS 11/27/18 07:15 Blood Blood Culture - Preliminary NO GROWTH AFTER 48 HOURS 11/27/18 03:30 Sputum - Endotracheal Tube Aspirate Gram Stain - Final 11/27/18 03:30 Sputum - Endotracheal Tube Aspirate Sputum Culture - Final Yeast 11/26/18 04:20 Sputum - Expectorated Sputum Gram Stain - Final 11/26/18 04:20 Sputum - Expectorated Sputum Sputum Culture - Final Normal Respiratory Ruth Assessment and Plan (1) Anemia Current visit: Yes Status: Acute Qualifiers: Anemia type: unspecified type Qualified Code(s): D64.9 - Anemia, unspecified Category: Medical Code(s): D64.9 - Anemia, unspecified (2) Subtherapeutic international normalized ratio (INR) Current visit: No Status: Acute Category: Medical Code(s): R79.1 - Abnormal coagulation profile (3) Hypotension Current visit: Yes Status: Acute Qualifiers: Hypotension type: unspecified hypotension type Qualified Code(s): I95.9 - Hypotension, unspecified Category: Medical Code(s): I95.9 - Hypotension, unspecified (4) Acute bronchitis Current visit: Yes Status: Acute Qualifiers: Bronchitis organism: unspecified organism Qualified Code(s): J20.9 - Acute bronchitis, unspecified Category: Medical Code(s): J20.9 - Acute bronchitis, unspecified (5) Hyperbilirubinemia Current visit: Yes Status: Acute Category: Medical Code(s): E80.6 - Other disorders of bilirubin metabolism (6) Pulmonary hypertension Current visit: No Status: Chronic Category: Medical Code(s): I27.20 - Pulmonary hypertension, unspecified (7) Renal insufficiency Current visit: No Status: Chronic Category: Medical Code(s): N28.9 - Disorder of kidney and ureter, unspecified (8) 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 Category: Medical Code(s): C91.10 - Chronic lymphocytic leukemia of B-cell type not having achieved remission (9) History of pulmonary embolism Current visit: No Status: Chronic Category: Medical Code(s): Z86.711 - Personal history of pulmonary embolism (10) Pneumonia Current visit: Yes Status: Acute Qualifiers: Laterality: bilateral Lung location: unspecified part of lung Category: Medical Code(s): J18.9 - Pneumonia, unspecified organism (11) SIRS (systemic inflammatory response syndrome) Current visit: Yes Status: Acute Category: Medical Code(s): R65.10 - Systemic inflammatory response syndrome (SIRS) of non-infectious origin without acute organ dysfunction (12) Hypoxia Current visit: No Status: Acute Category: Medical Code(s): R09.02 - Hypoxemia (13) Yeast species isolated but not further identified Current visit: Yes Status: Acute Category: Medical Code(s): B37.9 - Candidiasis, unspecified - Assessment and plan all Dx Assessment and Plan for all problems:: Saw patient, agree with above note, add treatment for yeast
[2018-11-29 09:09] LABS: Lymphocytes % 88 % (10-50); Monocytes % 1 % (2-9); Neutrophils % 6 % (42-76); Total Cells Counted 100
[2018-11-29 09:10] LABS: Macrocytosis 2+
[2018-11-29 09:11] LABS: Anisocytosis 2+
[2018-11-29 09:12] LABS: Stomatocytes 2+; Tear Drop Cells 1+
[2018-11-30 06:21] LABS: Basophils # 2.4 K/mm3 (0-0.2); Basophils % 2.8 % (0.1-2.0); Eosinophils # 0.1 K/mm3 (0.0-0.4); Eosinophils % 0.1 % (0.1-12.0); Lymphocytes # 75.5 K/mm3 (0.7-4.5); Lymphocytes % 89.9 % (10-50); Mean Corpuscular HGB Conc 31.1 g/dL (31.8-35.4); Mean Corpuscular Hemoglobin 33.9 pg (27.0-31.2); Mean Corpuscular Volume 108.9 fl (81-99); Mean Platelet Volume 8.6 fl (7.4-10.4); Monocytes # 0.2 K/mm3 (0.1-1.0); Monocytes % 0.2 % (1.7-9.3); Neutrophils # 5.9 K/mm3 (1.8-7.8); Platelet Count 94 K/mm3 (142-424); Red Blood Count 2.02 M/mm3 (4.20-5.40)
[2018-11-30 06:25] LABS: INR 3.02 (0.9-1.1); Prothrombin Time 30.1 seconds (9.4-11.8)
[2018-11-30 06:26] LABS: Hemoglobin 6.9 g/dL (12.2-16.2)
[2018-11-30 06:39] LABS: Calcium 7.4 mg/dL (8.5-10.1)
--- NOTE | 2018-11-30 07:33 | Progress Note ---
Internal Medicine - PN: Subj *Date: 11/30/18 *Time: 07:32 Exam Vital signs and Labs for Last 24 Hours: Temp Pulse Resp BP Pulse Ox 98.9 F 90 19 113/57 L 94 L 11/29/18 20:00 11/30/18 05:57 11/30/18 01:00 11/30/18 04:00 11/30/18 05:57 Laboratory Results - last 24 hr 11/28/18 18:59: Specimen Source Right radial, O2 % 40%, vapotherm, ABG pH 7.30 L , ABG pCO2 52.2 H, ABG pO2 71.5 L, ABG HCO3 25.2, ABG Total CO2 26.8, ABG O2 Saturation 93, ABG Base Excess -1.2, [place] Test Patient unable 11/29/18 05:40: Total Counted 100, Neutrophils % (Manual) 6 L, Band Neutrophils % 1.0, Lymphocytes % (Manual) 88 H, Atypical Lymphs % 4.0, Monocytes % (Manual) 1 L, Platelet Estimate Slight decrease, Anisocytosis 2+, Macrocytosis 2+, Tear Drop Cells 1+, Stomatocytes 2+ 11/30/18 05:40: WBC 84.0 H*, RBC 2.02 L, Hgb 6.9 L*, Hct 22.0 L*, MCV 108.9 H, MCH 33.9 H, MCHC 31.1 L, RDW 19.0 H, Plt Count 94 L, MPV 8.6, Neut % (Auto) 7.0 L, Lymph % (Auto) 89.9 H, [place] % (Auto) 0.2 L, Eos % (Auto) 0.1, Baso % (Auto) 2.8 H, Neut # (Auto) 5.9, Lymph # (Auto) 75.5 H, [place] # (Auto) 0.2, Eos # (Auto) 0.1, Baso # (Auto) 2.4 H 11/30/18 05:40: PT 30.1 H, INR 3.02 H 11/30/18 05:40: Sodium 138, Potassium 4.0 D, Chloride 104, Carbon Dioxide 29, Anion Gap 9.0, BUN 15, Creatinine 1.00 D, Estimated Creat Clear 50, Estimated GFR 53 L, Est GFR ( Amer) 64 D, Glucose 90, Calcium 7.4 L I & O for Last 24 hours: Intake & Output 11/27/18 11/28/18 11/29/18 11/30/18 23:59 23:59 23:59 23:59 Intake Total 3322 / 3322 3131 / 3131 1447 / 1447 50 / 50 Output Total 1825 / 1825 3500 / 3500 1950 / 1950 Balance 1497 / 1497 -369 / -369 -503 / -503 50 / 50 Weight 70.845 kg 71.214 kg 79.152 kg Microbiology Reports for the Last 24 Hours: Microbiology 11/27/18 07:15 Blood Blood Culture - Preliminary NO GROWTH AFTER 48 HOURS 11/27/18 07:15 Blood Blood Culture - Preliminary NO GROWTH AFTER 48 HOURS 11/27/18 03:30 Sputum - Endotracheal Tube Aspirate Gram Stain - Final 11/27/18 03:30 Sputum - Endotracheal Tube Aspirate Sputum Culture - Final Yeast Assessment and Plan (1) Anemia Current visit: Yes Status: Acute Qualifiers: Anemia type: unspecified type Qualified Code(s): D64.9 - Anemia, unspecif ied Category: Medical Code(s): D64.9 - Anemia, unspecified (2) Subtherapeutic international normalized ratio (INR) Current visit: No Status: Acute Category: Medical Code(s): R79.1 - Abnormal coagulation profile (3) Hypotension Current visit: Yes Status: Acute Qualifiers: Hypotension type: unspecified hypotension type Qualified Code(s): I95.9 - Hypotension, unspecified Category: Medical Code(s): I95.9 - Hypotension, unspecified (4) Acute bronchitis Current visit: Yes Status: Acute Qualifiers: Bronchitis organism: unspecified organism Qualified Code(s): J20.9 - Acute bronchitis, unspecified Category: Medical Code(s): J20.9 - Acute bronchitis, unspecified (5) Hyperbilirubinemia Current visit: Yes Status: Acute Category: Medical Code(s): E80.6 - Other disorders of bilirubin metabolism (6) Pulmonary hypertension Current visit: No Status: Chronic Category: Medical Code(s): I27.20 - Pulmonary hypertension, unspecified (7) Renal insufficiency Current visit: No Status: Chronic Category: Medical Code(s): N28.9 - Disorder of kidney and ureter, unspecified (8) 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 Category: Medical Code(s): C91.10 - Chronic lymphocytic leukemia of B-cell type not having achieved remission (9) History of pulmonary embolism Current visit: No Status: Chronic Category: Medical Code(s): Z86.711 - Personal history of pulmonary embolism (10) Pneumonia Current visit: Yes Status: Acute Qualifiers: Laterality: bilateral Lung location: unspecified part of lung Category: Medical Code(s): J18.9 - Pneumonia, unspecified organism (11) SIRS (systemic inflammatory response syndrome) Current visit: Yes Status: Acute Category: Medical Code(s): R65.10 - Systemic inflammatory response syndrome (SIRS) of non-infectious origin without acute organ dysfunction (12) Hypoxia Current visit: No Status: Acute Category: Medical Code(s): R09.02 - Hypoxemia (13) Yeast species isolated but not further identified Current visit: Yes Status: Acute Category: Medical Code(s): B37.9 - Candidiasis, unspecified The patient's infection will respond to the chosen ABx?: Yes Is the patient receiving the right drug, dose, and route?: Yes Could a more targeted ABx be ordered?: No
--- NOTE | 2018-11-30 08:20 | Progress Note ---
Internal Medicine - PN: Subj *Date: 11/30/18 *Time: 08:18 Interval history: No new issues reported, patient slept well overnight with Vapotherm, did not need BiPAP. Exam Vital signs and Labs for Last 24 Hours: Temp Pulse Resp BP Pulse Ox 98.9 F 90 19 113/57 L 94 L 11/29/18 20:00 11/30/18 05:57 11/30/18 01:00 11/30/18 04:00 11/30/18 05:57 Laboratory Results - last 24 hr 11/28/18 18:59: Specimen Source Right radial, O2 % 40%, vapotherm, ABG pH 7.30 L , ABG pCO2 52.2 H, ABG pO2 71.5 L, ABG HCO3 25.2, ABG Total CO2 26.8, ABG O2 Saturation 93, ABG Base Excess -1.2, [place] Test Patient unable 11/29/18 05:40: Total Counted 100, Neutrophils % (Manual) 6 L, Band Neutrophils % 1.0, Lymphocytes % (Manual) 88 H, Atypical Lymphs % 4.0, Monocytes % (Manual) 1 L, Platelet Estimate Slight decrease, Anisocytosis 2+, Macrocytosis 2+, Tear Drop Cells 1+, Stomatocytes 2+ 11/30/18 05:40: WBC 84.0 H*, RBC 2.02 L, Hgb 6.9 L*, Hct 22.0 L*, MCV 108.9 H, MCH 33.9 H, MCHC 31.1 L, RDW 19.0 H, Plt Count 94 L, MPV 8.6, Neut % (Auto) 7.0 L, Lymph % (Auto) 89.9 H, [place] % (Auto) 0.2 L, Eos % (Auto) 0.1, Baso % (Auto) 2.8 H, Neut # (Auto) 5.9, Lymph # (Auto) 75.5 H, [place] # (Auto) 0.2, Eos # (Auto) 0.1, Baso # (Auto) 2.4 H 11/30/18 05:40: PT 30.1 H, INR 3.02 H 11/30/18 05:40: Sodium 138, Potassium 4.0 D, Chloride 104, Carbon Dioxide 29, Anion Gap 9.0, BUN 15, Creatinine 1.00 D, Estimated Creat Clear 50, Estimated GFR 53 L, Est GFR ( Amer) 64 D, Glucose 90, Calcium 7.4 L 11/30/18 05:40: Vancomycin Trough 12.5 I & O for Last 24 hours: Intake & Output 11/27/18 11/28/18 11/29/18 11/30/18 11:59 11:59 11:59 11:59 Intake Total 2692 / 2692 4502 / 4502 2918 / 2918 530 / 530 Output Total 900 / 900 3525 / 3525 2750 / 2750 900 / 900 Balance 1792 / 1792 977 / 977 168 / 168 -370 / -370 Weight 156 lb 3 oz 157 lb 1 oz 174 lb 8 oz Microbiology Reports for the Last 24 Hours: Microbiology 11/27/18 07:15 Blood Blood Culture - Preliminary NO GROWTH AFTER 48 HOURS 11/27/18 07:15 Blood Blood Culture - Preliminary NO GROWTH AFTER 48 HOURS 11/27/18 03:30 Sputum - Endotracheal Tube Aspirate Gram Stain - Final 11/27/18 03:30 Sputum - Endotracheal Tube Aspirate Sputum Culture - Final Yeast - Constitutional no acute distress - *Routine Respiratory Exam Present: rhonchi (occasional, better air movement today.) - *Routine Cardiovascular Exam Present: RRR Assessment and Plan (1) Anemia Current visit: Yes Status: Acute Qualifiers: Anemia type: unspecified type Qualified Code(s): D64.9 - Anemia, unspecified Category: Medical Code(s): D64.9 - Anemia, unspecified (2) Subtherapeutic international normalized ratio (INR) Current visit: No Status: Acute Category: Medical Code(s): R79.1 - Abnormal coagulation profile (3) Hypotension Current visit: Yes Status: Acute Qualifiers: Hypotension type: unspecified hypotension type Qualified Code(s): I95.9 - Hypotension, unspecified Category: Medical Code(s): I95.9 - Hypotension, unspecified (4) Acute bronchitis Current visit: Yes Status: Acute Qualifiers: Bronchitis organism: unspecified organism Qualified Code(s): J20.9 - Acute bronchitis, unspecified Category: Medical Code(s): J20.9 - Acute bronchitis, unspecified (5) Hyperbilirubinemia Current visit: Yes Status: Acute Category: Medical Code(s): E80.6 - Other disorders of bilirubin metabolism (6) Pulmonary hypertension Current visit: No Status: Chronic Category: Medical Code(s): I27.20 - Pulmonary hypertension, unspecified (7) Renal insufficiency Current visit: No Status: Chronic Category: Medical Code(s): N28.9 - Disorder of kidney and ureter, unspecified (8) 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 Category: Medical Code(s): C91.10 - Chronic lymphocytic leukemia of B-cell type not having achieved remission (9) History of pulmonary embolism Current visit: No Status: Chronic Category: Medical Code(s): Z86.711 - Personal history of pulmonary embolism (10) Pneumonia Current visit: Yes Status: Acute Qualifiers: Laterality: bilateral Lung location: unspecified part of lung Category: Medical Code(s): J18.9 - Pneumonia, unspecified organism (11) SIRS (systemic inflammatory response syndrome) Current visit: Yes Status: Acute Category: Medical Code(s): R65.10 - Systemic inflammatory response syndrome (SIRS) of non-infectious origin without acute organ dysfunction (12) Hypoxia Current visit: No Status: Acute Category: Medical Code(s): R09.02 - Hypoxemia (13) Yeast species isolated but not further identified Current visit: Yes Status: Acute Category: Medical Code(s): B37.9 - Candidiasis, unspecified - Assessment and plan all Dx Assessment and Plan for all problems:: Continue current treatment, awaiting results of possible transfusion reaction workup.
--- NOTE | 2018-11-30 09:28 | Pharmacy Consult Notes ---
- Pharmacy Consult Date: 11/30/18 Time: 09:26 Referring provider: DR. GONZÁLES Reason for Consult:: VANCOMYCIN TROUGH LEVEL Allergies and ADEs:: Allergies Allergy/AdvReac Type Severity Reaction Status Date / Time tramadol [TRAMADOL] AdvReac Intermediate NA-NAUSEA Verified 12/02/17 23:02 morphine [MORPHINE] AdvReac Mild NA-NAUSEA Verified 12/02/17 23:02 Home Medications:: Home Medications Medication Instructions Recorded Confirmed Type Acetaminophen with Codeine 1 - 2 tab PO TIDP PRN MDD 1-2 as 12/02/17 11/25/18 History [Tylenol with Codeine #3 needed tablet] Levothyroxine Sodium [Synthroid 150 mcg PO DAILY 12/02/17 11/25/18 History 150mcg (0.15mg) tablet] Montelukast Sodium [Montelukast 10 mg PO HS 12/02/17 11/25/18 History 10mg Tab] Promethazine HCl [Phenergan 12.5mg 12.5 mg PO Q6HP PRN 12/02/17 11/25/18 History tablet] Sertraline HCl [Zoloft 50mg tablet] 50 mg PO DAILY 12/02/17 11/25/18 History Temazepam [Restoril 30mg capsule] 30 mg PO HS 12/02/17 11/25/18 History Warfarin Sodium 5 mg PO DAILY 12/02/17 11/26/18 History Ondansetron [Zofran 4mg ODT] 4 mg PO TIDP PRN 12/03/17 11/25/18 History Furosemide [Furosemide 20mg Tab] 20 mg PO DAILY 03/20/18 11/25/18 History Polyethylene Glycol 3350 [Miralax 17 gm PO DAILY 03/20/18 11/25/18 History Powder] Potassium Citrate [Urocit-K] 10 meq PO DAILY 03/20/18 11/25/18 History Dicyclomine HCl 20 mg PO QID 11/26/18 11/26/18 History Ferrous Sulfate [Iron] 325 mg PO BID 11/26/18 11/26/18 History Gabapentin 800 mg PO TID 11/26/18 11/26/18 History Nitrofurantoin Monohyd/M-Cryst 100 mg PO BID 11/26/18 11/26/18 History [Nitrofurantoin [place]-Mcr 100 mg] Pantoprazole Sodium [Protonix 40mg 40 mg PO DAILY 11/26/18 11/26/18 History tablet] Height: 1.7 m Weight: 79.152 kg Laboratory Results:: Laboratory Results - last 24 hr 11/28/18 18:59: Specimen Source Right radial, O2 % 40%, vapotherm, ABG pH 7.30 L , ABG pCO2 52.2 H, ABG pO2 71.5 L, ABG HCO3 25.2, ABG Total CO2 26.8, ABG O2 Saturation 93, ABG Base Excess -1.2, [place] Test Patient unable 11/30/18 05:40: WBC 84.0 H*, RBC 2.02 L, Hgb 6.9 L*, Hct 22.0 L*, MCV 108.9 H, MCH 33.9 H, MCHC 31.1 L, RDW 19.0 H, Plt Count 94 L, MPV 8.6, Neut % (Auto) 7.0 L, Lymph % (Auto) 89.9 H, [place] % (Auto) 0.2 L, Eos % (Auto) 0.1, Baso % (Auto) 2.8 H, Neut # (Auto) 5.9, Lymph # (Auto) 75.5 H, [place] # (Auto) 0.2, Eos # (Auto) 0.1, Baso # (Auto) 2.4 H 11/30/18 05:40: PT 30.1 H, INR 3.02 H 11/30/18 05:40: Sodium 138, Potassium 4.0 D, Chloride 104, Carbon Dioxide 29, Anion Gap 9.0, BUN 15, Creatinine 1.00 D, Estimated Creat Clear 50, Estimated GFR 53 L, Est GFR ( Amer) 64 D, Glucose 90, Calcium 7.4 L 11/30/18 05:40: Vancomycin Trough 12.5 Medical History: Reports:: Cancer (chronic lymphocytic leukemia, colon), Depression, Hypertension, Pulmonary Embolism Denies:: Diabetes Mellitus Type 1, Diabetes Mellitus Type 2, MRSA Assessment and Plan (1) Anemia Current visit: Yes Status: Acute Qualifiers: Anemia type: unspecified type Qualified Code(s): D64.9 - Anemia, unspecified Category: Medical Code(s): D64.9 - Anemia, unspecified (2) Subtherapeutic international normalized ratio (INR) Current visit: No Status: Acute Category: Medical Code(s): R79.1 - Abnormal coagulation profile (3) Hypotension Current visit: Yes Status: Acute Qualifiers: Hypotension type: unspecified hypotension type Qualified Code(s): I95.9 - Hypotension, unspecified Category: Medical Code(s): I95.9 - Hypotension, unspecified (4) Acute bronchitis Current visit: Yes Status: Acute Qualifiers: Bronchitis organism: unspecified organism Qualified Code(s): J20.9 - Acute bronchitis, unspecified Category: Medical Code(s): J20.9 - Acute bronchitis, unspecified (5) Hyperbilirubinemia Current visit: Yes Status: Acute Category: Medical Code(s): E80.6 - Other disorders of bilirubin metabolism (6) Pulmonary hypertension Current visit: No Status: Chronic Category: Medical Code(s): I27.20 - Pulmonary hypertension, unspecified (7) Renal insufficiency Current visit: No Status: Chronic Category: Medical Code(s): N28.9 - Disorder of kidney and ureter, unspecified (8) 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 Category: Medical Code(s): C91.10 - Chronic lymphocytic leukemia of B-cell type not having achieved remission (9) History of pulmonary embolism Current visit: No Status: Chronic Category: Medical Code(s): Z86.711 - Personal history of pulmonary embolism (10) Pneumonia Current visit: Yes Status: Acute Qualifiers: Laterality: bilateral Lung location: unspecified part of lung Category: Medical Code(s): J18.9 - Pneumonia, unspecified organism (11) SIRS (systemic inflammatory response syndrome) Current visit: Yes Status: Acute Category: Medical Code(s): R65.10 - Systemic inflammatory response syndrome (SIRS) of non-infectious origin without acute organ dysfunction (12) Hypoxia Current visit: No Status: Acute Category: Medical Code(s): R09.02 - Hypoxemia (13) Yeast species isolated but not further identified Current visit: Yes Status: Acute Category: Medical Code(s): B37.9 - Candidiasis, unspecified - Assessment and plan all Dx Assessment and Plan for all problems:: BASED ON PATIENT FACTORS AND VANCOMYCIN TROUGH LEVEL, RECOMMEND CONTINUING VANCOMYCIN 1 GM IV Q24H. PHARMACY WILL CONTINUE TO MONITOR DAILY AND ADJUST APPROPRIATE.
[2018-11-30 09:33] LABS: Lymphocytes % 83 % (10-50); Macrocytosis 2+; Monocytes % 1 % (2-9); Neutrophils % 10 % (42-76); Total Cells Counted 100
[2018-11-30 09:34] LABS: Anisocytosis 2+; Tear Drop Cells 1+
[2018-11-30 09:35] LABS: Stomatocytes 1+
[2018-12-01 06:39] LABS: Basophils # 1.2 K/mm3 (0-0.2); Basophils % 1.5 % (0.1-2.0); Eosinophils # 0.1 K/mm3 (0.0-0.4); Eosinophils % 0.1 % (0.1-12.0); Lymphocytes # 71.3 K/mm3 (0.7-4.5); Lymphocytes % 90.8 % (10-50); Mean Corpuscular HGB Conc 30.1 g/dL (31.8-35.4); Mean Corpuscular Hemoglobin 33.4 pg (27.0-31.2); Mean Corpuscular Volume 111.2 fl (81-99); Mean Platelet Volume 8.4 fl (7.4-10.4); Monocytes # 0.2 K/mm3 (0.1-1.0); Monocytes % 0.2 % (1.7-9.3); Neutrophils # 5.7 K/mm3 (1.8-7.8); Platelet Count 92 K/mm3 (142-424); Red Blood Count 2.02 M/mm3 (4.20-5.40); Red Cell Distribution Width 18.5 % (11.5-17.5)
[2018-12-01 06:44] LABS: Anion Gap 10.6 mEq/L (5-15); Calcium 7.7 mg/dL (8.5-10.1); Potassium 4.6 mmoL/L (3.5-5.1)
[2018-12-01 06:45] LABS: Neutrophils % 7.3 % (37.0-80.0)
[2018-12-01 06:46] LABS: Hemoglobin 6.8 g/dL (12.2-16.2); White Blood Count 78.5 K/mm3 (4.8-10.8)
[2018-12-01 06:47] LABS: Hematocrit 22.5 % (37.0-47.0); INR 2.38 (0.9-1.1); Prothrombin Time 23.9 seconds (9.4-11.8)
[2018-12-01 07:25] LABS: Activated Partial Thrombo Time 47.4 seconds (23.6-34.0)
--- NOTE | 2018-12-01 08:02 | Progress Note ---
<Keke Romeo - Last Filed: 12/01/18 08:00> Internal Medicine - PN: Subj *Date: 12/01/18 *Time: 08:00 Interval history: Patient is sleeping this morning. Her sitter states she has slept off and on throughout the night. She states she did have a good day yesterday. Patient denies any pain this morning. She just says she is tired. Exam Vital signs and Labs for Last 24 Hours: Temp Pulse Resp BP Pulse Ox 97.8 F 87 17 120/62 96 12/01/18 06:00 12/01/18 06:51 12/01/18 06:00 12/01/18 06:00 12/01/18 06:51 Laboratory Results - last 24 hr 11/30/18 05:40: Total Counted 100, Neutrophils % (Manual) 10 L, Lymphocytes % (Manual) 83 H, Atypical Lymphs % 6.0, Monocytes % (Manual) 1 L, Platelet Estimate Moderate decrease, Anisocytosis 2+, Macrocytosis 2+, Tear Drop Cells 1+, Stomatocytes 1+ 11/30/18 13:35: Blood Type A Positive, Antibody Screen Positive, Crossmatch (AHG) See Detail 11/30/18 13:35: Antibody Identification Warm Auto Antibody 12/01/18 05:55: WBC 78.5 H*, RBC 2.02 L, Hgb 6.8 L*, Hct 22.5 L*, MCV 111.2 H, MCH 33.4 H, MCHC 30.1 L, RDW 18.5 H, Plt Count 92 L, MPV 8.4, Neut % (Auto) 7.3 L, Lymph % (Auto) 90.8 H, [place] % (Auto) 0.2 L, Eos % (Auto) 0.1, Baso % (Auto) 1.5, Neut # (Auto) 5.7, Lymph # (Auto) 71.3 H, [place] # (Auto) 0.2, Eos # (Auto) 0.1, Baso # (Auto) 1.2 H 12/01/18 05:55: PT 23.9 H, INR 2.38 H, APTT 47.4 H 12/01/18 05:55: Sodium 140, Potassium 4.6, Chloride 105, Carbon Dioxide 29, Anion Gap 10.6, BUN 11 D, Creatinine 0.80, Estimated Creat Clear 48, Estimated GFR 68, Est GFR ( Amer) 82 D, Glucose 88, Calcium 7.7 L I & O for Last 24 hours: Intake & Output 11/28/18 11/29/18 11/30/18 12/01/18 11:59 11:59 11:59 11:59 Intake Total 4502 / 4502 2968 / 2968 530 / 530 880 / 880 Output Total 3525 / 3525 2750 / 2750 900 / 900 875 / 875 Balance 977 / 977 218 / 218 -370 / -370 5 / Weight 157 lb 1 oz 174 lb 8 oz 174 lb 8 oz 169 lb 1 oz Microbiology Reports for the Last 24 Hours: Microbiology 11/25/18 16:15 Blood Blood Culture - Final NO GROWTH AFTER 5 DAYS 11/25/18 16:15 Blood Blood Culture - Final NO GROWTH AFTER 5 DAYS - Constitutional no acute distress - *Routine Respiratory Exam Present: rhonchi - *Routine Cardiovascular Exam Present: RRR - *Routine Abdominal Exam Present: soft, normoactive bowel sounds. Absent: tenderness - *Routine Extremities Exam Absent: cyanosis, clubbing, edema - *Routine Skin Exam Present: pallor Assessment and Plan (1) Anemia Current visit: Yes Status: Acute Qualifiers: Anemia type: unspecified type Qualified Code(s): D64.9 - Anemia, unspecified Category: Medical Code(s): D64.9 - Anemia, unspecified (2) Subtherapeutic international normalized ratio (INR) Current visit: No Status: Acute Category: Medical Code(s): R79.1 - Abnormal coagulation profile (3) Hypotension Current visit: Yes Status: Acute Qualifiers: Hypotension type: unspecified hypotension type Qualified Code(s): I95.9 - Hypotension, unspecified Category: Medical Code(s): I95.9 - Hypotension, unspecified (4) Acute bronchitis Current visit: Yes Status: Acute Qualifiers: Bronchitis organism: unspecified organism Qualified Code(s): J20.9 - Acute bronchitis, unspecified Category: Medical Code(s): J20.9 - Acute bronchitis, unspecified (5) Hyperbilirubinemia Current visit: Yes Status: Acute Category: Medical Code(s): E80.6 - Other disorders of bilirubin metabolism (6) Pulmonary hypertension Current visit: No Status: Chronic Category: Medical Code(s): I27.20 - Pulmonary hypertension, unspecified (7) Renal insufficiency Current visit: No Status: Chronic Category: Medical Code(s): N28.9 - Disorder of kidney and ureter, unspecified (8) 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 Category: Medical Code(s): C91.10 - Chronic lymphocytic leukemia of B-cell type not having achieved remission (9) History of pulmonary embolism Current visit: No Status: Chronic Category: Medical Code(s): Z86.711 - Personal history of pulmonary embolism (10) Pneumonia Current visit: Yes Status: Acute Qualifiers: Laterality: bilateral Lung location: unspecified part of lung Category: Medical Code(s): J18.9 - Pneumonia, unspecified organism (11) SIRS (systemic inflammatory response syndrome) Current visit: Yes Status: Acute Category: Medical Code(s): R65.10 - Systemic inflammatory response syndrome (SIRS) of non-infectious origin without acute organ dysfunction (12) Hypoxia Current visit: No Status: Acute Category: Medical Code(s): R09.02 - Hypoxemia (13) Yeast species isolated but not further identified Current visit: Yes Status: Acute Category: Medical Code(s): B37.9 - Candidiasis, unspecified - Assessment and plan all Dx Assessment and Plan for all problems:: Blood transfusion was ordered yesterday and we are waiting on blood to arrive to transfuse. We will continue current care. <Hiren Mckeon - Last Filed: 12/01/18 08:44> Internal Medicine - PN: Subj Interval history: Patient's daughter came to visit her yesterday and was diagnosed with influenza after her visit. Exam Vital signs and Labs for Last 24 Hours: Temp Pulse Resp BP Pulse Ox 97.8 F 87 17 120/62 96 12/01/18 06:00 12/01/18 06:51 12/01/18 06:00 12/01/18 06:00 12/01/18 06:51 Laboratory Results - last 24 hr 11/30/18 05:40: Total Counted 100, Neutrophils % (Manual) 10 L, Lymphocytes % (Manual) 83 H, Atypical Lymphs % 6.0, Monocytes % (Manual) 1 L, Platelet Malinda mate Moderate decrease, Anisocytosis 2+, Macrocytosis 2+, Tear Drop Cells 1+, Stomatocytes 1+ 11/30/18 13:35: Blood Type A Positive, Antibody Screen Positive, Crossmatch (AHG) See Detail 11/30/18 13:35: Antibody Identification Warm Auto Antibody 12/01/18 05:55: WBC 78.5 H*, RBC 2.02 L, Hgb 6.8 L*, Hct 22.5 L*, MCV 111.2 H, MCH 33.4 H, MCHC 30.1 L, RDW 18.5 H, Plt Count 92 L, MPV 8.4, Neut % (Auto) 7.3 L, Lymph % (Auto) 90.8 H, [place] % (Auto) 0.2 L, Eos % (Auto) 0.1, Baso % (Auto) 1.5, Neut # (Auto) 5.7, Lymph # (Auto) 71.3 H, [place] # (Auto) 0.2, Eos # (Auto) 0.1, Baso # (Auto) 1.2 H 12/01/18 05:55: PT 23.9 H, INR 2.38 H, APTT 47.4 H 12/01/18 05:55: Sodium 140, Potassium 4.6, Chloride 105, Carbon Dioxide 29, Anion Gap 10.6, BUN 11 D, Creatinine 0.80, Estimated Creat Clear 48, Estimated GFR 68, Est GFR ( Amer) 82 D, Glucose 88, Calcium 7.7 L I & O for Last 24 hours: Intake & Output 11/28/18 11/29/18 11/30/18 12/01/18 11:59 11:59 11:59 11:59 Intake Total 4502 / 4502 2968 / 2968 530 / 530 880 / 880 Output Total 3525 / 3525 2750 / 2750 900 / 900 875 / 875 Balance 977 / 977 218 / 218 -370 / -370 5 / 5 Weight 157 lb 1 oz 174 lb 8 oz 174 lb 8 oz 169 lb 1 oz Microbiology Reports for the Last 24 Hours: Microbiology 11/25/18 16:15 Blood Blood Culture - Final NO GROWTH AFTER 5 DAYS 11/25/18 16:15 Blood Blood Culture - Final NO GROWTH AFTER 5 DAYS Assessment and Plan (1) Anemia Current visit: Yes Status: Acute Qualifiers: Anemia type: unspecified type Qualified Code(s): D64.9 - Anemia, unspecified Category: Medical Code(s): D64.9 - Anemia, unspecified (2) Subtherapeutic international normalized ratio (INR) Current visit: No Status: Acute Category: Medical Code(s): R79.1 - Abnormal coagulation profile (3) Hypotension Current visit: Yes Status: Acute Qualifiers: Hypotension type: unspecified hypotension type Qualified Code(s): I95.9 - Hypotension, unspecified Category: Medical Code(s): I95.9 - Hypotension, unspecified (4) Acute bronchitis Current visit: Yes Status: Acute Qualifiers: Bronchitis organism: unspecified organism Qualified Code(s): J20.9 - Acute bronchitis, unspecified Category: Medical Code(s): J20.9 - Acute bronchitis, unspecified (5) Hyperbilirubinemia Current visit: Yes Status: Acute Category: Medical Code(s): E80.6 - Other disorders of bilirubin metabolism (6) Pulmonary hypertension Current visit: No Status: Chronic Category: Medical Code(s): I27.20 - Pulmonary hypertension, unspecified (7) Renal insufficiency Current visit: No Status: Chronic Category: Medical Code(s): N28.9 - Disorder of kidney and ureter, unspecified (8) 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 Category: Medical Code(s): C91.10 - Chronic lymphocytic leukemia of B-cell type not having achieved remission (9) History of pulmonary embolism Current visit: No Status: Chronic Category: Medical Code(s): Z86.711 - Personal history of pulmonary embolism (10) Pneumonia Current visit: Yes Status: Acute Qualifiers: Laterality: bilateral Lung location: unspecified part of lung Category: Medical Code(s): J18.9 - Pneumonia, unspecified organism (11) SIRS (systemic inflammatory response syndrome) Current visit: Yes Status: Acute Category: Medical Code(s): R65.10 - Systemic inflammatory response syndrome (SIRS) of non-infectious origin without acute organ dysfunction (12) Hypoxia Current visit: No Status: Acute Category: Medical Code(s): R09.02 - Hypoxemia (13) Yeast species isolated but not further identified Current visit: Yes Status: Acute Category: Medical Code(s): B37.9 - Candidiasis, unspecified (14) Exposure to influenza Current visit: Yes Status: Acute Category: Medical Code(s): Z20.828 - Contact with and (suspected) exposure to other viral communicable diseases (15) Candidal pneumonia Current visit: Yes Status: Acute Category: Medical Code(s): B37.1 - Pulmonary candidiasis - Assessment and plan all Dx Assessment and Plan for all problems:: Saw patient agree with above note, will check CXR today and start Tamiflu prophylactically.
[2018-12-01 09:13] LABS: Anisocytosis 1+; Lymphocytes % 86 % (10-50); Macrocytosis 2+; Monocytes % 1 % (2-9); Neutrophils % 8 % (42-76); Total Cells Counted 100
[2018-12-01 09:14] LABS: Stomatocytes 1+; Tear Drop Cells 1+
[2018-12-01 17:01] LABS: Hematocrit 31.6 % (37.0-47.0)
[2018-12-01 17:16] LABS: Hemoglobin 10.3 g/dL (12.2-16.2)
[2018-12-02 06:35] LABS: Basophils # 2.2 K/mm3 (0-0.2); Basophils % 2.8 % (0.1-2.0); Eosinophils # 0.2 K/mm3 (0.0-0.4); Eosinophils % 0.3 % (0.1-12.0); Hematocrit 29.7 % (37.0-47.0); Hemoglobin 9.4 g/dL (12.2-16.2); Mean Corpuscular HGB Conc 31.7 g/dL (31.8-35.4); Mean Corpuscular Hemoglobin 31.8 pg (27.0-31.2); Mean Corpuscular Volume 100.4 fl (81-99); Mean Platelet Volume 8.4 fl (7.4-10.4); Monocytes # 0.2 K/mm3 (0.1-1.0); Monocytes % 0.3 % (1.7-9.3); Neutrophils # 5.1 K/mm3 (1.8-7.8); Platelet Count 91 K/mm3 (142-424); Red Blood Count 2.96 M/mm3 (4.20-5.40); Red Cell Distribution Width 20.8 % (11.5-17.5)
[2018-12-02 06:41] LABS: Neutrophils % 6.6 % (37.0-80.0); White Blood Count 77.8 K/mm3 (4.8-10.8)
[2018-12-02 06:42] LABS: Anion Gap 6.6 mEq/L (5-15); Calcium 7.6 mg/dL (8.5-10.1); Potassium 4.6 mmoL/L (3.5-5.1)
[2018-12-02 06:44] LABS: INR 3.07 (0.9-1.1); Prothrombin Time 30.6 seconds (9.4-11.8)
--- NOTE | 2018-12-02 08:22 | Progress Note ---
<Keke Romeo - Last Filed: 12/02/18 08:19> Internal Medicine - PN: Subj *Date: 12/02/18 *Time: 08:19 Interval history: Patient is sleeping this morning. Her nurse states she seemed very upbeat last night, but has been slightly lethargic this morning. She states her face seems to be more swollen than it was yesterday and she has developed some rhonchi in her lungs. Her color has improved. Her sitter states that she ate very minimal breakfast and has been sleeping most of the night. She did get weaned off of the Vapotherm has been placed on 3 L of nasal oxygen. Her sats have been in the low 90s. Exam Vital signs and Labs for Last 24 Hours: Temp Pulse Resp BP Pulse Ox 99.0 F 93 H 15 122/61 92 L 12/02/18 04:00 12/02/18 08:00 12/02/18 08:00 12/02/18 08:00 12/02/18 08:00 Laboratory Results - last 24 hr 11/30/18 13:35: Blood Type A Positive, Antibody Screen Positive, Crossmatch ([facility]) See Detail 12/01/18 05:55: Total Counted 100, Neutrophils % (Manual) 8 L, Lymphocytes % (Manual) 86 H, Atypical Lymphs % 5.0, Monocytes % (Manual) 1 L, Platelet Estimate Moderate decrease, Anisocytosis 1+, Macrocytosis 2+, Tear Drop Cells 1+, Stomatocytes 1+ 12/01/18 16:40: Hgb 10.3 L D, Hct 31.6 L 12/02/18 05:50: WBC 77.8 H*, RBC 2.96 L D, Hgb 9.4 L, Hct 29.7 L, MCV 100.4 H, MCH 31.8 H, MCHC 31.7 L, RDW 20.8 H, Plt Count 91 L, MPV 8.4, Neut % (Auto) 6.6 L, Lymph % (Auto) 90.0 H, [place] % (Auto) 0.3 L, Eos % (Auto) 0.3, Baso % (Auto) 2.8 H, Neut # (Auto) 5.1, Lymph # (Auto) 70.0 H, [place] # (Auto) 0.2, Eos # (Auto) 0.2, Baso # (Auto) 2.2 H 12/02/18 05:50: PT 30.6 H, INR 3.07 H 12/02/18 05:50: Sodium 140, Potassium 4.6, Chloride 104, Carbon Dioxide 34 H, Anion Gap 6.6, BUN 11, Creatinine 0.82, Estimated Creat Clear 45, Estimated GFR 66, Est GFR ( Amer) 80, Glucose 90, Calcium 7.6 L I & O for Last 24 hours: Intake & Output 11/29/18 11/30/18 12/01/18 12/02/18 11:59 11:59 11:59 11:59 Intake Total 2968 / 2968 580 / 580 1180 / 1180 896 / 896 Output Total 2750 / 2750 900 / 900 875 / 875 5125 / 5125 Balance 218 / 218 -320 / -320 305 / 305 -4229 / -4229 Weight 174 lb 8 oz 174 lb 8 oz 169 lb 1 oz 156 lb 6 oz Microbiology Reports for the Last 24 Hours: Microbiology 11/27/18 07:15 Blood Blood Culture - Final NO GROWTH AFTER 5 DAYS 11/27/18 07:15 Blood Blood Culture - Final NO GROWTH AFTER 5 DAYS - Constitutional no acute distress (sleeping) - *Routine Respiratory Exam Present: rhonchi (bilaterally) - *Routine Cardiovascular Exam Present: RRR - *Routine Abdominal Exam Present: soft, normoactive bowel sounds. Absent: tenderness - *Routine Extremities Exam Absent: cyanosis, clubbing, edema - *Routine Skin Exam Comments: much better color Assessment and Plan (1) Anemia Current visit: Yes Status: Acute Qualifiers: Anemia type: unspecified type Qualified Code(s): D64.9 - Anemia, unspecified Category: Medical Code(s): D64.9 - Anemia, unspecified (2) Subtherapeutic international normalized ratio (INR) Current visit: No Status: Acute Category: Medical Code(s): R79.1 - Abnormal coagulation profile (3) Hypotension Current visit: Yes Status: Acute Qualifiers: Hypotension type: unspecified hypotension type Qualified Code(s): I95.9 - Hypotension, unspecified Category: Medical Code(s): I95.9 - Hypotension, unspecified (4) Acute bronchitis Current visit: Yes Status: Acute Qualifiers: Bronchitis organism: unspecified organism Qualified Code(s): J20.9 - Acute bronchitis, unspecified Category: Medical Code(s): J20.9 - Acute bronchitis, unspecified (5) Hyperbilirubinemia Current visit: Yes Status: Acute Category: Medical Code(s): E80.6 - Other disorders of bilirubin metabolism (6) Pulmonary hypertension Current visit: No Status: Chronic Category: Medical Code(s): I27.20 - Pulmonary hypertension, unspecified (7) Renal insufficiency Current visit: No Status: Chronic Category: Medical Code(s): N28.9 - Disorder of kidney and ureter, unspecified (8) 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 Category: Medical Code(s): C91.10 - Chronic lymphocytic leukemia of B-cell type not having achieved remission (9) History of pulmonary embolism Current visit: No Status: Chronic Category: Medical Code(s): Z86.711 - Personal history of pulmonary embolism (10) Pneumonia Current visit: Yes Status: Acute Qualifiers: Laterality: bilateral Lung location: unspecified part of lung Category: Medical Code(s): J18.9 - Pneumonia, unspecified organism (11) SIRS (systemic inflammatory response syndrome) Current visit: Yes Status: Acute Category: Medical Code(s): R65.10 - Systemic inflammatory response syndrome (SIRS) of non-infectious origin without acute organ dysfunction (12) Hypoxia Current visit: No Status: Acute Category: Medical Code(s): R09.02 - Hypoxemia (13) Yeast species isolated but not further identified Current visit: Yes Status: Acute Category: Medical Code(s): B37.9 - Candidiasis, unspecified (14) Exposure to influenza Current visit: Yes Status: Acute Category: Medical Code(s): Z20.828 - Contact with and (suspected) exposure to other viral communicable diseases (15) Candidal pneumonia Current visit: Yes Status: Acute Category: Medical Code(s): B37.1 - Pulmonary candidiasis - Assessment and plan all Dx Assessment and Plan for all problems:: Patient's H&H is improved. Will get a CXR. She may need some additional Lasix after getting blood yesterday. Will discuss with Dr. Mckeon. <Hiren Mckeon - Last Filed: 12/02/18 09:24> Exam Vital signs and Labs for Last 24 Hours: Temp Pulse Resp BP Pulse Ox 99.0 F 93 H 15 122/61 92 L 12/02/18 04:00 12/02/18 08:00 12/02/18 08:00 12/02/18 08:00 12/02/18 08:00 Laboratory Results - last 24 hr 11/30/18 13:35: Blood Type A Positive, Antibody Screen Positive, Crossmatch ([facility]) See Detail 12/01/18 16:40: Hgb 10.3 L D, Hct 31.6 L 12/02/18 05:50: WBC 77.8 H*, RBC 2.96 L D, Hgb 9.4 L, Hct 29.7 L, MCV 100.4 H, MCH 31.8 H, MCHC 31.7 L, RDW 20.8 H, Plt Count 91 L, MPV 8.4, Neut % (Auto) 6.6 L, Lymph % (Auto) 90.0 H, [place] % (Auto) 0.3 L, Eos % (Auto) 0.3, Baso % (Auto) 2.8 H, Neut # (Auto) 5.1, Lymph # (Auto) 70.0 H, [place] # (Auto) 0.2, Eos # (Auto) 0.2, Baso # (Auto) 2.2 H, Total Counted 100, Neutrophils % (Manual) 6 L, Lymphocytes % (Manual) 86 H, Atypical Lymphs % 5.0, Monocytes % (Manual) 3, Platelet Estimate Moderate decrease, Macrocytosis 1+ 12/02/18 05:50: PT 30.6 H, INR 3.07 H 12/02/18 05:50: Sodium 140, Potassium 4.6, Chloride 104, Carbon Dioxide 34 H, Anion Gap 6.6, BUN 11, Creatinine 0.82, Estimated Creat Clear 45, Estimated GFR 66, Est GFR ( Amer) 80, Glucose 90, Calcium 7.6 L I & O for Last 24 hours: Intake & Output 11/29/18 11/30/18 12/01/18 12/02/18 11:59 11:59 11:59 11:59 Intake Total 2968 / 2968 580 / 580 1180 / 1180 896 / 896 Output Total 2750 / 2750 900 / 900 875 / 875 5125 / 5125 Balance 218 / 218 -320 / -320 305 / 305 -4229 / -4229 Weight 174 lb 8 oz 174 lb 8 oz 169 lb 1 oz 156 lb 6 oz Microbiology Reports for the Last 24 Hours: Microbiology 11/27/18 07:15 Blood Blood Culture - Final NO GROWTH AFTER 5 DAYS 11/27/18 07:15 Blood Blood Culture - Final NO GROWTH AFTER 5 DAYS Assessment and Plan (1) Anemia Current visit: Yes Status: Acute Qualifiers: Anemia type: unspecified type Qualified Code(s): D64.9 - Anemia, unspecified Category: Medical Code(s): D64.9 - Anemia, unspecified (2) Subtherapeutic international normalized ratio (INR) Current visit: No Status: Acute Category: Medical Code(s): R79.1 - Abnormal coagulation profile (3) Hypotension Current visit: Yes Status: Acute Qualifiers: Hypotension type: unspecified hypotension type Qualified Code(s): I95.9 - Hypotension, unspecified Category: Medical Code(s): I95.9 - Hypotension, unspecified (4) Acute bronchitis Current visit: Yes Status: Acute Qualifiers: Bronchitis organism: unspecified organism Qualified Code(s): J20.9 - Acute bronchitis, unspecified Category: Medical Code(s): J20.9 - Acute bronchitis, unspecified (5) Hyperbilirubinemia Current visit: Yes Status: Acute Category: Medical Code(s): E80.6 - Other disorders of bilirubin metabolism (6) Pulmonary hypertension Current visit: No Status: Chronic Category: Medical Code(s): I27.20 - Pulmonary hypertension, unspecified (7) Renal insufficiency Current visit: No Status: Chronic Category: Medical Code(s): N28.9 - Disorder of kidney and ureter, unspecified (8) 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 Category: Medical Code(s): C91.10 - Chronic lymphocytic leukemia of B-cell type not having achieved remission (9) History of pulmonary embolism Current visit: No Status: Chronic Category: Medical Code(s): Z86.711 - Personal history of pulmonary embolism (10) Pneumonia Current visit: Yes Status: Acute Qualifiers: Laterality: bilateral Lung location: unspecified part of lung Category: Medical Code(s): J18.9 - Pneumonia, unspecified organism (11) SIRS (systemic inflammatory response syndrome) Current visit: Yes Status: Acute Category: Medical Code(s): R65.10 - Systemic inflammatory response syndrome (SIRS) of non-infectious origin without acute organ dysfunction (12) Hypoxia Current visit: No Status: Acute Category: Medical Code(s): R09.02 - Hypoxemia (13) Yeast species isolated but not further identified Current visit: Yes Status: Acute Category: Medical Code(s): B37.9 - Candidiasis, unspecified (14) Exposure to influenza Current visit: Yes Status: Acute Category: Medical Code(s): Z20.828 - Contact with and (suspected) exposure to other viral communicable diseases (15) Candidal pneumonia Current visit: Yes Status: Acute Category: Medical Code(s): B37.1 - Pulmonary candidiasis - Assessment and plan all Dx Assessment and Plan for all problems:: Saw patient, agree with above note, plan PT eval today.
[2018-12-02 08:54] LABS: Lymphocytes % 86 % (10-50); Monocytes % 3 % (2-9); Neutrophils % 6 % (42-76); Total Cells Counted 100
[2018-12-02 08:56] LABS: Macrocytosis 1+
--- NOTE | 2018-12-03 09:19 | Progress Note ---
Internal Medicine - PN: Subj *Date: 12/03/18 *Time: 09:17 Interval history: Patient had an episode of hypoxia last night while siting on the bedside commode. Vapotherm was resumed. She slept pretty well last night. Exam Vital signs and Labs for Last 24 Hours: Temp Pulse Resp BP Pulse Ox 98.3 F 85 19 137/73 96 12/03/18 04:00 12/03/18 08:00 12/03/18 04:00 12/03/18 04:00 12/03/18 06:34 Laboratory Results - last 24 hr 12/03/18 07:50: Vancomycin Trough 11.5 I & O for Last 24 hours: Intake & Output 11/30/18 12/01/18 12/02/18 12/03/18 11:59 11:59 11:59 11:59 Intake Total 580 / 580 1180 / 1180 1136 / 1136 1710 / 1710 Output Total 900 / 900 875 / 875 5125 / 5125 700 / 700 Balance -320 / -320 305 / 305 -3989 / -3989 1010 / 1010 Weight 174 lb 8 oz 169 lb 1 oz 156 lb 6 oz 152 lb 2 oz Microbiology Reports for the Last 24 Hours: Microbiology 11/27/18 07:15 Blood Blood Culture - Final NO GROWTH AFTER 5 DAYS 11/27/18 07:15 Blood Blood Culture - Final NO GROWTH AFTER 5 DAYS - Constitutional no acute distress - *Routine HEENT Exam ENT: Present: mucous membranes moist - *Routine Respiratory Exam Present: rhonchi, crackles (rare) - *Routine Cardiovascular Exam Present: RRR Assessment and Plan (1) Anemia Current visit: Yes Status: Acute Qualifiers: Anemia type: unspecified type Qualified Code(s): D64.9 - Anemia, unspecified Category: Medical Code(s): D64.9 - Anemia, unspecified (2) Subtherapeutic international normalized ratio (INR) Current visit: No Status: Acute Category: Medical Code(s): R79.1 - Abnormal coagulation profile (3) Hypotension Current visit: Yes Status: Acute Qualifiers: Hypotension type: unspecified hypotension type Qualified Code(s): I95.9 - Hypotension, unspecified Category: Medical Code(s): I95.9 - Hypotension, unspecified (4) Acute bronchitis Current visit: Yes Status: Acute Qualifiers: Bronchitis organism: unspecified organism Qualified Code(s): J20.9 - Acute bronchitis, unspecified Category: Medical Code(s): J20.9 - Acute bronchitis, unspecified (5) Hyperbilirubinemia Current visit: Yes Status: Acute Category: Medical Code(s): E80.6 - Other disorders of bilirubin metabolism (6) Pulmonary hypertension Current visit: No Status: Chronic Category: Medical Code(s): I27.20 - Pulmonary hypertension, unspecified (7) Renal insufficiency Current visit: No Status: Chronic Category: Medical Code(s): N28.9 - Disorder of kidney and ureter, unspecified (8) 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 Category: Medical Code(s): C91.10 - Chronic lymphocytic leukemia of B-cell type not having achieved remission (9) History of pulmonary embolism Current visit: No Status: Chronic Category: Medical Code(s): Z86.711 - Personal history of pulmonary embolism (10) Pneumonia Current visit: Yes Status: Acute Qualifiers: Laterality: bilateral Lung location: unspecified part of lung Category: Medical Code(s): J18.9 - Pneumonia, unspecified organism (11) SIRS (systemic inflammatory response syndrome) Current visit: Yes Status: Acute Category: Medical Code(s): R65.10 - Systemic inflammatory response syndrome (SIRS) of non-infectious origin without acute organ dysfunction (12) Hypoxia Current visit: No Status: Acute Category: Medical Code(s): R09.02 - Hypoxemia (13) Yeast species isolated but not further identified Current visit: Yes Status: Acute Category: Medical Code(s): B37.9 - Candidiasis, unspecified (14) Exposure to influenza Current visit: Yes Status: Acute Category: Medical Code(s): Z20.828 - Contact with and (suspected) exposure to other viral communicable diseases (15) Candidal pneumonia Current visit: Yes Status: Acute Category: Medical Code(s): B37.1 - Pulmonary candidiasis - Assessment and plan all Dx Assessment and Plan for all problems:: Continue current treatment.
--- NOTE | 2018-12-03 12:56 | Pharmacy Consult Notes ---
- Pharmacy Consult Date: 12/03/18 Time: 10:00 Referring provider: DR. GONZÁLES Reason for Consult:: VANCOMYCIN TROUGH LEVEL Allergies and ADEs:: Allergies Allergy/AdvReac Type Severity Reaction Status Date / Time tramadol [TRAMADOL] AdvReac Intermediate NA-NAUSEA Verified 12/02/17 23:02 morphine [MORPHINE] AdvReac Mild NA-NAUSEA Verified 12/02/17 23:02 Home Medications:: Home Medications Medication Instructions Recorded Confirmed Type Acetaminophen with Codeine 1 - 2 tab PO TIDP PRN MDD 1-2 as 12/02/17 11/25/18 History [Tylenol with Codeine #3 needed tablet] Levothyroxine Sodium [Synthroid 150 mcg PO DAILY 12/02/17 11/25/18 History 150mcg (0.15mg) tablet] Montelukast Sodium [Montelukast 10 mg PO HS 12/02/17 11/25/18 History 10mg Tab] Promethazine HCl [Phenergan 12.5mg 12.5 mg PO Q6HP PRN 12/02/17 11/25/18 History tablet] Sertraline HCl [Zoloft 50mg tablet] 50 mg PO DAILY 12/02/17 11/25/18 History Temazepam [Restoril 30mg capsule] 30 mg PO HS 12/02/17 11/25/18 History Warfarin Sodium 5 mg PO DAILY 12/02/17 11/26/18 History Ondansetron [Zofran 4mg ODT] 4 mg PO TIDP PRN 12/03/17 11/25/18 History Furosemide [Furosemide 20mg Tab] 20 mg PO DAILY 03/20/18 11/25/18 History Polyethylene Glycol 3350 [Miralax 17 gm PO DAILY 03/20/18 11/25/18 History Powder] Potassium Citrate [Urocit-K] 10 meq PO DAILY 03/20/18 11/25/18 History Dicyclomine HCl 20 mg PO QID 11/26/18 11/26/18 History Ferrous Sulfate [Iron] 325 mg PO BID 11/26/18 11/26/18 History Gabapentin 800 mg PO TID 11/26/18 11/26/18 History Nitrofurantoin Monohyd/M-Cryst 100 mg PO BID 11/26/18 11/26/18 History [Nitrofurantoin [place]-Mcr 100 mg] Pantoprazole Sodium [Protonix 40mg 40 mg PO DAILY 11/26/18 11/26/18 History tablet] Height: 1.7 m Weight: 69.003 kg Laboratory Results:: Laboratory Results - last 24 hr 12/03/18 07:50: Vancomycin Trough 11.5 Medical History: Reports:: Cancer (chronic lymphocytic leukemia, colon), Depression, Hypertension, Pulmonary Embolism Denies:: Diabetes Mellitus Type 1, Diabetes Mellitus Type 2, MRSA Assessment and Plan (1) Anemia Current visit: Yes Status: Acute Qualifiers: Anemia type: unspecified type Qualified Code(s): D64.9 - Anemia, unspecified Category: Medical Code(s): D64.9 - Anemia, unspecified (2) Subtherapeutic international normalized ratio (INR) Current visit: No Status: Acute Category: Medical Code(s): R79.1 - Abnormal coagulation profile (3) Hypotension Current visit: Yes Status: Acute Qualifiers: Hypotension type: unspecified hypotension type Qualified Code(s): I95.9 - Hypotension, unspecified Category: Medical Code(s): I95.9 - Hypotension, unspecified (4) Acute bronchitis Current visit: Yes Status: Acute Qualifiers: Bronchitis organism: unspecified organism Qualified Code(s): J20.9 - Acute bronchitis, unspecified Category: Medical Code(s): J20.9 - Acute bronchitis, unspecified (5) Hyperbilirubinemia Current visit: Yes Status: Acute Category: Medical Code(s): E80.6 - Other disorders of bilirubin metabolism (6) Pulmonary hypertension Current visit: No Status: Chronic Category: Medical Code(s): I27.20 - Pulmonary hypertension, unspecified (7) Renal insufficiency Current visit: No Status: Chronic Category: Medical Code(s): N28.9 - Disorder of kidney and ureter, unspecified (8) 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 Category: Medical Code(s): C91.10 - Chronic lymphocytic leukemia of B-cell type not having achieved remission (9) History of pulmonary embolism Current visit: No Status: Chronic Category: Medical Code(s): Z86.711 - P ersonal history of pulmonary embolism (10) Pneumonia Current visit: Yes Status: Acute Qualifiers: Laterality: bilateral Lung location: unspecified part of lung Category: Medical Code(s): J18.9 - Pneumonia, unspecified organism (11) SIRS (systemic inflammatory response syndrome) Current visit: Yes Status: Acute Category: Medical Code(s): R65.10 - Systemic inflammatory response syndrome (SIRS) of non-infectious origin without acute organ dysfunction (12) Hypoxia Current visit: No Status: Acute Category: Medical Code(s): R09.02 - Hypoxemia (13) Yeast species isolated but not further identified Current visit: Yes Status: Acute Category: Medical Code(s): B37.9 - Candidiasis, unspecified (14) Exposure to influenza Current visit: Yes Status: Acute Category: Medical Code(s): Z20.828 - Contact with and (suspected) exposure to other viral communicable diseases (15) Candidal pneumonia Current visit: Yes Status: Acute Category: Medical Code(s): B37.1 - Pulmonary candidiasis - Assessment and plan all Dx Assessment and Plan for all problems:: BASED ON PATIENT'S VANCOMYCIN TROUGH LEVEL OF 11.5 MCG/ML, RECOMMEND CONTINUING WITH CURRENT DOSE OF VANCOMYCIN 1 GM Q12H AT THIS TIME. PHARMACY WILL FOLLOW DAILY AND ADJUST APPROPRIATE. MIRIAM WATKINS, PHARMD
[2018-12-04 06:15] LABS: Basophils # 1.5 K/mm3 (0-0.2); Basophils % 1.8 % (0.1-2.0); Eosinophils # 0.2 K/mm3 (0.0-0.4); Eosinophils % 0.3 % (0.1-12.0); Hemoglobin 9.3 g/dL (12.2-16.2); Lymphocytes # 73.1 K/mm3 (0.7-4.5); Lymphocytes % 91.1 % (10-50); Mean Corpuscular HGB Conc 31.3 g/dL (31.8-35.4); Mean Corpuscular Hemoglobin 31.9 pg (27.0-31.2); Mean Corpuscular Volume 102.1 fl (81-99); Mean Platelet Volume 8.1 fl (7.4-10.4); Monocytes # 0.3 K/mm3 (0.1-1.0); Monocytes % 0.4 % (1.7-9.3); Neutrophils # 5.2 K/mm3 (1.8-7.8); Platelet Count 117 K/mm3 (142-424); Red Cell Distribution Width 19.7 % (11.5-17.5)
[2018-12-04 06:22] LABS: Hematocrit 29.6 % (37.0-47.0); Neutrophils % 6.4 % (37.0-80.0); White Blood Count 80.3 K/mm3 (4.8-10.8)
[2018-12-04 06:24] LABS: INR 2.81 (0.9-1.1); Prothrombin Time 28.1 seconds (9.4-11.8)
[2018-12-04 06:29] LABS: Anion Gap 10.2 mEq/L (5-15); Calcium 8.1 mg/dL (8.5-10.1); Potassium 4.2 mmoL/L (3.5-5.1)
[2018-12-04 07:22] LABS: Anisocytosis 1+; Hypochromasia 1+; Lymphocytes % 93 % (10-50); Neutrophils % 6 % (42-76); Polychromasia 1+; Total Cells Counted 100
[2018-12-04 07:23] LABS: Macrocytosis 2+; Rouleaux 1+
--- NOTE | 2018-12-04 10:38 | Progress Note ---
Internal Medicine - PN: Subj *Date: 12/04/18 *Time: 10:36 Interval history: Patient with no new complaints today. Exam Vital signs and Labs for Last 24 Hours: Temp Pulse Resp BP Pulse Ox 97.6 F 89 16 128/71 94 L 12/04/18 08:00 12/04/18 10:31 12/04/18 08:00 12/04/18 08:00 12/04/18 08:00 Laboratory Results - last 24 hr 12/04/18 05:40: WBC 80.3 H*, RBC 2.90 L, Hgb 9.3 L, Hct 29.6 L, MCV 102.1 H, MCH 31.9 H, MCHC 31.3 L, RDW 19.7 H, Plt Count 117 L D, MPV 8.1, Neut % (Auto) 6.4 L , Lymph % (Auto) 91.1 H, [place] % (Auto) 0.4 L, Eos % (Auto) 0.3, Baso % (Auto) 1.8, Neut # (Auto) 5.2, Lymph # (Auto) 73.1 H, [place] # (Auto) 0.3, Eos # (Auto) 0.2, Baso # (Auto) 1.5 H, Total Counted 100, Neutrophils % (Manual) 6 L, Band Neutrophils % 1.0, Lymphocytes % (Manual) 93 H, Platelet Estimate Slight decrease, Polychromasia 1+, Hypochromasia 1+, Anisocytosis 1+, Macrocytosis 2+, Rouleaux 1+ 12/04/18 05:40: PT 28.1 H, INR 2.81 H 12/04/18 05:40: Sodium 141, Potassium 4.2, Chloride 101, Carbon Dioxide 34 H, Anion Gap 10.2, BUN 10, Creatinine 0.80, Estimated Creat Clear 44, Estimated GFR 68, Est GFR ( Amer) 82, Glucose 88, Calcium 8.1 L I & O for Last 24 hours: Intake & Output 12/01/18 12/02/18 12/03/18 12/04/18 11:59 11:59 11:59 12:59 Intake Total 1180 / 1180 1136 / 1136 1710 / 1710 50 / 50 Output Total 875 / 875 5125 / 5125 700 / 700 1550 / 1550 Balance 305 / 305 -3989 / -3989 1010 / 1010 -1500 / -1500 Weight 169 lb 1 oz 156 lb 6 oz 152 lb 2 oz 158 lb - Constitutional no acute distress - *Routine HEENT Exam Eye: Present: PERRL ENT: Present: mucous membranes moist - *Routine Neck Exam Present: supple. Absent: lymphadenopathy - *Routine Respiratory Exam Present: CTA bilaterally (anterior), rales (rare, posterior) - *Routine Cardiovascular Exam Present: RRR - *Routine Abdominal Exam Present: soft, normoactive bowel sounds. Absent: tenderness - *Routine Extremities Exam Absent: cyanosis, clubbing, edema - *Routine Skin Exam Present: warm. Absent: rash - *Routine Neurological Exam Present: alert Assessment and Plan (1) Anemia Current visit: Yes Status: Acute Qualifiers: Anemia type: unspecified type Qualified Code(s): D64.9 - Anemia, unspecified Category: Medical Code(s): D64.9 - Anemia, unspecified (2) Subtherapeutic international normalized ratio (INR) Current visit: No Status: Acute Category: Medical Code(s): R79.1 - Abnormal coagulation profile (3) Hypotension Current visit: Yes Status: Acute Qualifiers: Hypotension type: unspecified hypotension type Qualified Code(s): I95.9 - Hypotension, unspecified Category: Medical Code(s): I95.9 - Hypotension, unspecified (4) Acute bronchitis Current visit: Yes Status: Acute Qualifiers: Bronchitis organism: unspecified organism Qualified Code(s): J20.9 - Acute bronchitis, unspecified Category: Medical Code(s): J20.9 - Acute bronchitis, unspecified (5) Hyperbilirubinemia Current visit: Yes Status: Acute Category: Medical Code(s): E80.6 - Other disorders of bilirubin metabolism (6) Pulmonary hypertension Current visit: No Status: Chronic Category: Medical Code(s): I27.20 - Pulmonary hypertension, unspecified (7) Renal insufficiency Current visit: No Status: Chronic Category: Medical Code(s): N28.9 - Disorder of kidney and ureter, unspecified (8) 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 Category: Medical Code(s): C91.10 - Chronic lymphocytic leukemia of B-cell type not having achieved remission (9) History of pulmonary embolism Current visit: No Status: Chronic Category: Medical Code(s): Z86.711 - Personal history of pulmonary embolism (10) Pneumonia Current visit: Yes Status: Acute Qualifiers: Laterality: bilateral Lung location: unspecified part of lung Category: Medical Code(s): J18.9 - Pneumonia, unspecified organism (11) SIRS (systemic inflammatory response syndrome) Current visit: Yes Status: Acute Category: Medical Code(s): R65.10 - Systemic inflammatory response syndrome (SIRS) of non-infectious origin without acute organ dysfunction (12) Hypoxia Current visit: No Status: Acute Category: Medical Code(s): R09.02 - Hypoxemia (13) Yeast species isolated but not further identified Current visit: Yes Status: Acute Category: Medical Code(s): B37.9 - Candidiasis, unspecified (14) Exposure to influenza Current visit: Yes Status: Acute Category: Medical Code(s): Z20.828 - Contact with and (suspected) exposure to other viral communicable diseases (15) Candidal pneumonia Current visit: Yes Status: Acute Category: Medical Code(s): B37.1 - Pulmonary candidiasis - Assessment and plan all Dx Assessment and Plan for all problems:: Patient is improving, continue current treatment, plan to discharge to swing bed status tomorrow.
--- NOTE | 2018-12-04 11:57 | Progress Note ---
Internal Medicine - PN: Subj *Date: 12/04/18 *Time: 11:56 Exam Vital signs and Labs for Last 24 Hours: Temp Pulse Resp BP Pulse Ox 97.6 F 89 16 128/71 94 L 12/04/18 08:00 12/04/18 10:31 12/04/18 08:00 12/04/18 08:00 12/04/18 08:00 Laboratory Results - last 24 hr 12/04/18 05:40: WBC 80.3 H*, RBC 2.90 L, Hgb 9.3 L, Hct 29.6 L, MCV 102.1 H, MCH 31.9 H, MCHC 31.3 L, RDW 19.7 H, Plt Count 117 L D, MPV 8.1, Neut % (Auto) 6.4 L , Lymph % (Auto) 91.1 H, [place] % (Auto) 0.4 L, Eos % (Auto) 0.3, Baso % (Auto) 1.8, Neut # (Auto) 5.2, Lymph # (Auto) 73.1 H, [place] # (Auto) 0.3, Eos # (Auto) 0.2, Baso # (Auto) 1.5 H, Total Counted 100, Neutrophils % (Manual) 6 L, Band Neutrophils % 1.0, Lymphocytes % (Manual) 93 H, Platelet Estimate Slight decrease, Polychromasia 1+, Hypochromasia 1+, Anisocytosis 1+, Macrocytosis 2+, Rouleaux 1+ 12/04/18 05:40: PT 28.1 H, INR 2.81 H 12/04/18 05:40: Sodium 141, Potassium 4.2, Chloride 101, Carbon Dioxide 34 H, Anion Gap 10.2, BUN 10, Creatinine 0.80, Estimated Creat Clear 44, Estimated GFR 68, Est GFR ( Amer) 82, Glucose 88, Calcium 8.1 L I & O for Last 24 hours: Intake & Output 12/01/18 12/02/18 12/03/18 12/05/18 23:59 23:59 23:59 00:59 Intake Total 1176 / 1176 1969 / 1969 50 / 50 Output Total 5375 / 5375 1325 / 1325 1550 / 1550 Balance -4199 / -4199 645 / 645 -1500 / -1500 Weight 76.685 kg 70.931 kg 69.003 kg 71.668 kg Assessment and Plan (1) Anemia Current visit: Yes Status: Acute Qualifiers: Anemia type: unspecified type Qualified Code(s): D64.9 - Anemia, unspecified Category: Medical Code(s): D64.9 - Anemia, unspecified (2) Subtherapeutic international normalized ratio (INR) Current visit: No Status: Acute Category: Medical Code(s): R79.1 - Abnormal coagulation profile (3) Hypotension Current visit: Yes Status: Acute Qualifiers: Hypotension type: unspecified hypotension type Qualified Code(s): I95.9 - Hypotension, unspecified Category: Medical Code(s): I95.9 - Hypotension, unspecified (4) Acute bronchitis Current visit: Yes Status: Acute Qualifiers: Bronchitis organism: unspecified organism Qualified Code(s): J20.9 - Acute bronchitis, unspecified Category: Medical Code(s): J20.9 - Acute bronchitis, unspecified (5) Hyperbilirubinemia Current visit: Yes Status: Acute Category: Medical Code(s): E80.6 - Other disorders of bilirubin metabolism (6) Pulmonary hypertension Current visit: No Status: Chronic Category: Medical Code(s): I27.20 - Pulmonary hypertension, unspecified (7) Renal insufficiency Current visit: No Status: Chronic Category: Medical Code(s): N28.9 - Disorder of kidney and ureter, unspecified (8) 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 Category: Medical Code(s): C91.10 - Chronic lymphocytic leukemia of B-cell type not having achieved remission (9) History of pulmonary embolism Current visit: No Status: Chronic Category: Medical Code(s): Z86.711 - Personal history of pulmonary embolism (10) Pneumonia Current visit: Yes Status: Acute Qualifiers: Laterality: bilateral Lung location: unspecified part of lung Category: Medical Code(s): J18.9 - Pneumonia, unspecified organism (11) SIRS (systemic inflammatory response syndrome) Current visit: Yes Status: Acute Category: Medical Code(s): R65.10 - Systemic inflammatory response syndrome (SIRS) of non-infectious origin without acute organ dysfunction (12) Hypoxia Current visit: No Status: Acute Category: Medical Code(s): R09.02 - Hypoxemia (13) Yeast species isolated but not further identified Current visit: Yes Status: Acute Category: Medical Code(s): B37.9 - Candidiasis, unspecified (14) Exposure to influenza Current visit: Yes Status: Acute Category: Medical Code(s): Z20.828 - Contact with and (suspected) exposure to other viral communicable diseases (15) Candidal pneumonia Current visit: Yes Status: Acute Category: Medical Code(s): B37.1 - Pulmonary candidiasis The patient's infection will respond to the chosen ABx?: Yes Is the patient receiving the right drug, dose, and route?: Yes Could a more targeted ABx be ordered?: No (NO GROWTH BESIDES YEAST IN SPUTUM. ON FLUCONAZOLE.)
--- NOTE | 2018-12-05 08:54 | Progress Note ---
<Suzi Adames - Last Filed: 12/05/18 09:26> Internal Medicine - PN: Subj Interval history: Patient did not have a very good day yesterday. Was anxious and demanded to go home. Son was able to calm her. She awakened this morning and has not mentioned going home. She states she did sleep last night. She denies hannah athing difficulties. Per son: She has an occasional cough. Her appetite has not returned. He did mention her going to a swing bed which he prefers. Exam Vital signs and Labs for Last 24 Hours: Temp Pulse Resp BP Pulse Ox 97.9 F 106 H 17 139/71 93 L 12/05/18 08:00 12/05/18 08:00 12/05/18 08:00 12/05/18 08:00 12/05/18 08:00 Laboratory Results - last 24 hr 12/04/18 17:07: Stl Aeromonas (PCR) Not detected, Stl C. cayetanensis PCR Not detected, Stool Rotavirus (PCR) Not detected, Stl Adenov F 40/41 PCR Not detected, Stool Astrovirus (PCR) Not detected, Stool Campylobacter PCR Not detected, Stl C.difficile Tox PCR Not detected, Stool Cryptosporidium PCR Not detected, Stl E.coli Shiga Tox PCR Not detected, Stool E coli O157 PCR Not detected, Stl Enterotoxigenic E PCR Not detected, Stool EPEC (PCR) Not detected, Stool EAEC (PCR) Not detected, Stl E. histolytica PCR Not detected, Stool Giardia Lamblia PCR Not detected, Stool Salmonella PCR Not detected, Stool Sapovirus (PCR) Not detected, Stl P. shigelloides PCR Not detected, Stl Shigella/EIEC PCR Not detected, St Y.enterocolitica PCR Not detected, Stool Vibrio (PCR) Not detected, Stl Vibrio cholerae PCR Not detected, Stl Norovirus GI/GII PCR Not detected I & O for Last 24 hours: Intake & Output 12/02/18 12/03/18 12/04/18 12/05/18 10:59 10:59 11:59 11:59 Intake Total 480 / 480 Output Total 240 / 240 Balance 240 / 240 Weight 151 lb 4 oz - Constitutional no acute distress Comments: Awake and answers questions appropriately - *Routine Respiratory Exam Comments: Rare expiratory wheeze posteriorly. Otherwise sounds clear. - *Routine Cardiovascular Exam Present: RRR - *Routine Abdominal Exam Present: soft. Absent: tenderness, distended - *Routine Extremities Exam Absent: edema - *Routine Skin Exam Present: rash Comments: Chest, back, and inner thighs - *Routine Neurological Exam Present: alert Assessment and Plan (1) Anemia Current visit: Yes Status: Acute Qualifiers: Anemia type: unspecified type Qualified Code(s): D64.9 - Anemia, unspecified Category: Medical Code(s): D64.9 - Anemia, unspecified (2) Subtherapeutic international normalized ratio (INR) Current visit: No Status: Acute Category: Medical Code(s): R79.1 - Abnormal coagulation profile (3) Hypotension Current visit: Yes Status: Acute Qualifiers: Hypotension type: unspecified hypotension type Qualified Code(s): I95.9 - Hypotension, unspecified Category: Medical Code(s): I95.9 - Hypotension, unspecified (4) Acute bronchitis Current visit: Yes Status: Acute Qualifiers: Bronchitis organism: unspecified organism Qualified Code(s): J20.9 - Acute bronchitis, unspecified Category: Medical Code(s): J20.9 - Acute bronchitis, unspecified (5) Hyperbilirubinemia Current visit: Yes Status: Acute Category: Medical Code(s): E80.6 - Other disorders of bilirubin metabolism (6) Pulmonary hypertension Current visit: No Status: Chronic Category: Medical Code(s): I27.20 - Pulmonary hypertension, unspecified (7) Renal insufficiency Current visit: No Status: Chronic Category: Medical Code(s): N28.9 - Disorder of kidney and ureter, unspecified (8) 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 Category: Medical Code(s): C91.10 - Chronic lymphocytic leukemia of B-cell type not having achieved remission (9) History of pulmonary embolism Current visit: No Status: Chronic Category: Medical Code(s): Z86.711 - Personal history of pulmonary embolism (10) Pneumonia Current visit: Yes Status: Acute Qualifiers: Laterality: bilateral Lung location: unspecified part of lung Category: Medical Code(s): J18.9 - Pneumonia, unspecified organism (11) SIRS (systemic inflammatory response syndrome) Current visit: Yes Status: Acute Category: Medical Code(s): R65.10 - Systemic inflammatory response syndrome (SIRS) of non-infectious origin without acute organ dysfunction (12) Hypoxia Current visit: No Status: Acute Category: Medical Code(s): R09.02 - Hypoxemia (13) Yeast species isolated but not further identified Current visit: Yes Status: Acute Category: Medical Code(s): B37.9 - Candidiasis, unspecified (14) Exposure to influenza Current visit: Yes Status: Acute Category: Medical Code(s): Z20.828 - Contact with and (suspected) exposure to other viral communicable diseases (15) Candidal pneumonia Current visit: Yes Status: Acute Category: Medical Code(s): B37.1 - Pulmonary candidiasis - Assessment and plan all Dx Assessment and Plan for all problems:: Due to rash will stop Restoril, Sertraline, Tamiflu, Singulair, and Fluconazole; Will transfer to a [facility] today and continue with Pulmonary care and start rehab. See orders <Hiren Mckeon - Last Filed: 12/05/18 11:34> Exam Vital signs and Labs for Last 24 Hours: Temp Pulse Resp BP Pulse Ox 97.9 F 97 H 17 139/71 95 12/05/18 08:00 12/05/18 09:57 12/05/18 08:00 12/05/18 08:00 12/05/18 09:57 Laboratory Results - last 24 hr 12/04/18 17:07: Stl Aeromonas (PCR) Not detected, Stl C. cayetanensis PCR Not detected, Stool Rotavirus (PCR) Not detected, Stl Adenov F 40/41 PCR Not detected, Stool Astrovirus (PCR) Not detected, Stool Campylobacter PCR Not detected, Stl C.difficile Tox PCR Not detected, Stool Cryptosporidium PCR Not detected, Stl E.coli Shiga Tox PCR Not detected, Stool E coli O157 PCR Not detected, Stl Enterotoxigenic E PCR Not detected, Stool EPEC (PCR) Not detected, Stool EAEC (PCR) Not detected, Stl E. histolytica PCR Not detected, Stool Giardia Lamblia PCR Not detected, Stool Salmonella PCR Not detected, Stool Sapovirus (PCR) Not detected, Stl P. shigelloides PCR Not detected, Stl Shigella/EIEC PCR Not detected, St Y.enterocolitica PCR Not detected, Stool Vibrio (PCR) Not detected, Stl Vibrio cholerae PCR Not detected, Stl Norovirus GI/GII PCR Not detected I & O for Last 24 hours: Intake & Output 12/02/18 12/03/18 12/04/18 12/05/18 10:59 10:59 11:59 11:59 Intake Total 480 / 480 Output Total 240 / 240 Balance 240 / 240 Weight 151 lb 4 oz Assessment and Plan (1) Anemia Current visit: Yes Status: Acute Qualifiers: Anemia type: unspecified type Qualified Code(s): D64.9 - Anemia, unspecified Category: Medical Code(s): D64.9 - Anemia, unspecified (2) Subtherapeutic international normalized ratio (INR) Current visit: No Status: Acute Category: Medical Code(s): R79.1 - Abnormal coagulation profile (3) Hypotension Current visit: Yes Status: Acute Qualifiers: Hypotension type: unspecified hypotension type Qualified Code(s): I95.9 - Hypotension, unspecified Category: Medical Code(s): I95.9 - Hypotension, unspecified (4) Acute bronchitis Current visit: Yes Status: Acute Qualifiers: Bronchitis organism: unspecified organism Qualified Code(s): J20.9 - Acute bronchitis, unspecified Category: Medical Code(s): J20.9 - Acute bronchitis, unspecified (5) Hyperbilirubinemia Current visit: Yes Status: Acute Category: Medical Code(s): E80.6 - Other disorders of bilirubin metabolism (6) Pulmonary hypertension Current visit: No Status: Chronic Category: Medical Code(s): I27.20 - Pulmonary hypertension, unspecified (7) Renal insufficiency Current visit: No Status: Chronic Category: Medical Code(s): N28.9 - Disorder of kidney and ureter, unspecified (8) 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 Category: Medical Code(s): C91.10 - Chronic lymphocytic leukemia of B-cell type not having achieved remission (9) History of pulmonary embolism Current visit: No Status: Chronic Category: Medical Code(s): Z86.711 - Personal history of pulmonary embolism (10) Pneumonia Current visit: Yes Status: Acute Qualifiers: Laterality: bilateral Lung location: unspecified part of lung Category: Medical Code(s): J18.9 - Pneumonia, unspecified organism (11) SIRS (systemic inflammatory response syndrome) Current visit: Yes Status: Acute Category: Medical Code(s): R65.10 - Systemic inflammatory response syndrome (SIRS) of non-infectious origin without acute organ dysfunction (12) Hypoxia Current visit: No Status: Acute Category: Medical Code(s): R09.02 - Hypoxemia (13) Yeast species isolated but not further identified Current visit: Yes Status: Acute Category: Medical Code(s): B37.9 - Candidiasis, unspecified (14) Exposure to influenza Current visit: Yes Status: Acute Category: Medical Code(s): Z20.828 - Contact with and (suspected) exposure to other viral communicable diseases (15) Candidal pneumonia Current visit: Yes Status: Acute Category: Medical Code(s): B37.1 - Pulmonary candidiasis (16) Rash Current visit: Yes Status: Acute Category: Medical Code(s): R21 - Rash and other nonspecific skin eruption - Assessment and plan all Dx Assessment and Plan for all problems:: Saw patient, agree with above note. Will start Rocephin today for pneumonia treatment as Vancomycin and Zosyn were stopped last night.
--- NOTE | 2018-12-05 14:28 | Swing Bed Reports ---
<Suzi Adames - Last Filed: 12/05/18 14:49> *Admission Date: 11/25/18 *Chief complaint: Pneumonia; weakness *History of present illness: Ms. Palomo is an 88-year-old female with a history of chronic lymphocytic leukemia who is currently on anticoagulation d/t a history of a PE. Her son stated she had a cough for the 1-2 weeks prior to admission and was taking Bromfed with some improvement. Her wheezing seemed to increase over the previous 2 days. She had also been on Macrobid for the 3 days for a urinary tract infection. He stated she awakened early and went to the bathroom and was feeling weak. As the day progressed, her weakness worsened. She began getting very pale and also looked jaundiced in the face. She became too weak to even walk. Therefore EMS was called and she was transported to the emergency room. Evaluation revealed a hemoglobin of 6 and a hematocrit of 19.6. Her stool for blood was negative. Her INR was supratherapeutic at 6.44. She was admitted for blood transfusion and further evaluation. Hospital Course Hospital Course: On admission patient was started on empiric antibiotics. These were changed to vancomycin and Zosyn IV. She did receive 2 units of packed red blood cells after admission and developed a fever. She was thought to possibly have a transfusion reaction. Night after admission she worsened required BiPAP, IV fluid bolus, and a dopamine drip. In addition to pneumonia she was felt to be septic. The following day she was better and was placed on Vapotherm. Dopamine was weaned off. She did require Lasix x2 doses and did have to be placed back on the BiPAP. Patient did gradually improve after initial events. CXR slowly improved as well. She required additional Lasix and time on BiPAP. She was placed on Vapotherm and was gradually weaned to oxygen per nasal cannula at 3 L/min. There was no evidence of a blood transfusion reaction and she received 2 more additional units of packed red blood cells when her hemoglobin was 6.8. INR became therapeutic and Coumadin was resumed. She received additional potassium for hypokalemia. She had yeast in her sputum and was placed on Diflucan IV. She was able to get out of bed on occasion but was very tired. Mobility was unstable. Physical therapy was consulted and plans were made to discharge her to a swing bed. She mostly ate very poorly but appetite was gradually improving. She did have periods of agitation and restlessness. She developed a rash. Restoril, sertraline, Tamiflu, Singulair, and fluconazole were all discontinued. To note she was started on Tamiflu because 1 of her visiting family members developed the flu. On 12/05/2018 patient was felt ready for rehab in a swing bed. Condition at transfer was stable and satisfactory. Cognition was satisfactory. Rehab potential was good. Prognosis was satisfactory. See discharge orders for diet and medication reconciliation. Follow-up while in rehab by Dr. Mckeon Exam Vital signs and Labs for Last 24 Hours: Temp Pulse Resp BP Pulse Ox 98.8 F 101 H 18 151/78 H 95 12/05/18 11:44 12/05/18 13:39 12/05/18 11:44 12/05/18 11:44 12/05/18 13:39 Laboratory Results - last 24 hr 12/04/18 17:07: Stl Aeromonas (PCR) Not detected, Stl C. cayetanensis PCR Not detected, Stool Rotavirus (PCR) Not detected, Stl Adenov F 40/41 PCR Not detected, Stool Astrovirus (PCR) Not detected, Stool Campylobacter PCR Not detected, Stl C.difficile Tox PCR Not detected, Stool Cryptosporidium PCR Not detected, Stl E.coli Shiga Tox PCR Not detected, Stool E coli O157 PCR Not detected, Stl Enterotoxigenic E PCR Not detected, Stool EPEC (PCR) Not detected, Stool EAEC (PCR) Not detected, Stl E. histolytica PCR Not detected, Stool Giardia Lamblia PCR Not detected, Stool Salmonella PCR Not detected, Stool Sapovirus (PCR) Not detected, Stl P. shigelloides PCR Not detected, Stl Shigella/EIEC PCR Not detected, St Y.enterocolitica PCR Not detected, Stool Vibrio (PCR) Not detected, Stl Vibrio cholerae PCR Not detected, Stl Norovirus GI/GII PCR Not detected I & O for Last 24 hours: Intake & Output 12/03/18 12/04/18 12/05/18 12/06/18 10:59 11:59 11:59 11:59 Intake Total 480 / 480 Output Total 240 / 240 Balance 240 / 240 Weight 151 lb 4 oz - Constitutional no acute distress (Sitting up in the bed and appeared comfortable) - *Routine Respiratory Exam Comments: Rare wheeze with improved breath sounds posteriorly - *Routine Cardiovascular Exam Present: RRR - *Routine Abdominal Exam Present: soft, normoactive bowel sounds. Absent: tenderness - *Routine Extremities Exam Absent: edema - *Routine Neurological Exam Present: alert Results Completed studies during hospitalization [Text1]: Laboratory Tests 11/25/18 11/25/18 12/02/18 16:15 17:16 05:50 WBC RBC Hgb Hct MCV MCH MCHC RDW Plt Count Neut % (Auto) Lymph % (Auto) Island % (Auto) Eos % (Auto) Baso % (Auto) Neut # (Auto) Lymph # (Auto) PT 30.6 H INR 3.07 H Sodium Potassium Chloride Carbon Dioxide Anion Gap BUN Creatinine Estimated Creat Clear Estimated GFR Est GFR ( Amer) Glucose Calcium Hepatitis A IgM Ab Negative Hep Bs Antigen Negative Hep B Core IgM Ab Negative Hepatitis C Antibody <0.1 Influenza Type A Ag Negative Influenza Type B Ag Negative 12/04/18 12/04/18 12/04/18 05:40 05:40 05:40 WBC 80.3 H* RBC 2.90 L Hgb 9.3 L Hct 29.6 L MCV 102.1 H MCH 31.9 H MCHC 31.3 L RDW 19.7 H Plt Count 117 L D Neut % (Auto) 6.4 L Lymph % (Auto) 91.1 H Island % (Auto) 0.4 L Eos % (Auto) 0.3 Baso % (Auto) 1.8 Neut # (Auto) 5.2 Lymph # (Auto) 73.1 H PT 28.1 H INR 2.81 H Sodium 141 Potassium 4.2 Chloride 101 Carbon Dioxide 34 H Anion Gap 10.2 BUN 10 Creatinine 0.80 Estimated Creat Clear 44 Estimated GFR 68 Est GFR ( Amer) 82 Glucose 88 Calcium 8.1 L Labs on day of discharge: Labs from last 24 hours 12/04/18 17:07 Stl Aeromonas (PCR) Not detected Stl C. cayetanensis PCR Not detected Stool Rotavirus (PCR) Not detected Stl Adenov F 40/41 PCR Not detected Stool Astrovirus (PCR) Not detected Stool Campylobacter PCR Not detected Stl C.difficile Tox PCR Not detected Stool Cryptosporidium PCR Not detected Stl E.coli Shiga Tox PCR Not detected Stool E coli O157 PCR Not detected Stl Enterotoxigenic E PCR Not detected Stool EPEC (PCR) Not detected Stool EAEC (PCR) Not detected Stl E. histolytica PCR Not detected Stool Giardia Lamblia PCR Not detected Stool Salmonella PCR Not detected Stool Sapovirus (PCR) Not detected Stl P. shigelloides PCR Not detected Stl Shigella/EIEC PCR Not detected St Y.enterocolitica PCR Not detected Stool Vibrio (PCR) Not detected Stl Vibrio cholerae PCR Not detected Stl Norovirus GI/GII PCR Not detected - Impressions CT of abdomen and pelvis 11/25/2018 IMPRESSION: 1. No evidence of acute intra-abdominal or retroperitoneal hemorrhage. 2. Splenomegaly 3. 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 IMPRESSION: Diffuse bilateral airspace disease consistent with diffuse pneumonia. 12/02/2018 chest x-ray DS: Diagnosis - Discharge Diagnosis (1) Anemia Status: Acute (2) Subtherapeutic international normalized ratio (INR) Status: Acute (3) Hypotension Status: Acute (4) Acute bronchitis Status: Acute (5) Hyperbilirubinemia Status: Acute (6) Pulmonary hypertension Status: Chronic (7) Renal insufficiency Status: Chronic (8) CLL (chronic lymphocytic leukemia) Status: Chronic (9) History of pulmonary embolism Status: Chronic (10) Pneumonia Status: Acute (11) SIRS (systemic inflammatory response syndrome) Status: Acute (12) Hypoxia Status: Acute (13) Yeast species isolated but not further identified Status: Acute (14) Exposure to influenza Status: Acute (15) Candidal pneumonia Status: Acute (16) Rash Status: Acute Discharge/Transfer (Swing Bed) - Plan of Care Resident has been informed of condition and prognosis?: Yes Mobility Status: ambulatory with assistance Goal of treatment:: improve strength and stability with ambulation; pneumonia resolution Rehab Potential: Fair Prognosis:: satisfactory I concur with the most recent H&P: Yes Date of most recent H&P: 11/26/18 Certification: I have reviewed and agree with this resident's plan of care. I certify that post-hospital [facility] facility services are required to be given on an inpatient basis because of the need for [facility] care on a continuing basis for the condition(s) for which he/she is receiving inpatient hospital services prior to admission to swing bed. I also certify that the resident meets existing SNF level of care definition. - Discharge from Acute Disposition: [facility] Swing Bed Condition: Good Home Med List for Swing Bed: Continue RX: Montelukast Sodium [Montelukast 10mg Tab] 10 mg PO HS RX: Levothyroxine Sodium [Synthroid 150mcg (0.15mg) tablet] 150 mcg PO DAILY RX: Polyethylene Glycol 3350 [Miralax Powder] 17 gm PO DAILY RX: Acetaminophen with Codeine [Tylenol with Codeine #3 tablet] 1 - 2 tab PO TIDP PRN MDD 1-2 as needed PRN Reason: shingles pain RX: Ondansetron [Zofran 4mg ODT] 4 mg PO TIDP PRN PRN Reason: Nausea Discontinued Warfarin Sodium 5 mg PO DAILY RX: Temazepam [Restoril 30mg capsule] 30 mg PO HS RX: Sertraline HCl [Zoloft 50mg tablet] 50 mg PO DAILY RX: Promethazine HCl [Phenergan 12.5mg tablet] 12.5 mg PO Q6HP PRN PRN Reason: Nausea And Vomiting RX: Furosemide [Furosemide 20mg Tab] 20 mg PO DAILY Ferrous Sulfate [Iron] 325 mg PO BID Nitrofurantoin Monohyd/M-Cryst [Nitrofurantoin Island-Mcr 100 mg] 100 mg PO BID Gabapentin 800 mg PO TID Potassium Citrate [Urocit-K] 10 meq PO DAILY Dicyclomine HCl 20 mg PO QID RX: Pantoprazole Sodium [Protonix 40mg tablet] 40 mg PO DAILY No Action Potassium Chloride [Pot Chlor 10 mEq Tab] 10 meq PO DAILY RX: Temazepam [Restoril 30mg capsule] 30 mg PO HS Gabapentin 800 mg PO TID Warfarin Sodium 5 mg PO DAILY RX: Pantoprazole Sodium [Protonix 40mg tablet] 40 mg PO HS RX: Sertraline HCl [Zoloft 50mg tablet] 50 mg PO DAILY RX: Ferrous Sulfate 325 mg PO BID RX: Furosemide [Furosemide 20mg Tab] 20 mg PO DAILY <Hiren Mckeon - Last Filed: 12/05/18 17:26> Exam Vital signs and Labs for Last 24 Hours: Temp Pulse Resp BP Pulse Ox 98.8 F 101 H 18 151/78 H 95 12/05/18 11:44 12/05/18 13:39 12/05/18 11:44 12/05/18 11:44 12/05/18 13:39 Laboratory Results - last 24 hr 12/04/18 17:07: Stl Aeromonas (PCR) Not detected, Stl C. cayetanensis PCR Not detected, Stool Rotavirus (PCR) Not detected, Stl Adenov F 40/41 PCR Not detected, Stool Astrovirus (PCR) Not detected, Stool Campylobacter PCR Not detected, Stl C.difficile Tox PCR Not detected, Stool Cryptosporidium PCR Not detected, Stl E.coli Shiga Tox PCR Not detected, Stool E coli O157 PCR Not detected, Stl Enterotoxigenic E PCR Not detected, Stool EPEC (PCR) Not detected, Stool EAEC (PCR) Not detected, Stl E. histolytica PCR Not detected, Stool Giardia Lamblia PCR Not detected, Stool Salmonella PCR Not detected, Stool Sapovirus (PCR) Not detected, Stl P. shigelloides PCR Not detected, Stl Shigella/EIEC PCR Not detected, St Y.enterocolitica PCR Not detected, Stool Vibrio (PCR) Not detected, Stl Vibrio cholerae PCR Not detected, Stl Norovirus GI/GII PCR Not detected I & O for Last 24 hours: Intake & Output 12/03/18 12/04/18 12/05/18 12/06/18 10:59 11:59 11:59 11:59 Intake Total 480 / 480 Output Total 240 / 240 Balance 240 / 240 Weight 151 lb 4 oz Results Labs on day of discharge: Labs from last 24 hours 12/04/18 17:07 Stl Aeromonas (PCR) Not detected Stl C. cayetanensis PCR Not detected Stool Rotavirus (PCR) Not detected Stl Adenov F 40/41 PCR Not detected Stool Astrovirus (PCR) Not detected Stool Campylobacter PCR Not detected Stl C.difficile Tox PCR Not detected Stool Cryptosporidium PCR Not detected Stl E.coli Shiga Tox PCR Not detected Stool E coli O157 PCR Not detected Stl Enterotoxigenic E PCR Not detected Stool EPEC (PCR) Not detected Stool EAEC (PCR) Not detected Stl E. histolytica PCR Not detected Stool Giardia Lamblia PCR Not detected Stool Salmonella PCR Not detected Stool Sapovirus (PCR) Not detected Stl P. shigelloides PCR Not detected Stl Shigella/EIEC PCR Not detected St Y.enterocolitica PCR Not detected Stool Vibrio (PCR) Not detected Stl Vibrio cholerae PCR Not detected Stl Norovirus GI/GII PCR Not detected - Additional Comments THE MEDICATION LIST ON MATILDE DOCUMENT IS INCORRECT. PLEASE SEE SWING BED ADMISSION ORDERS FOR CORRECT LIST. DS: Diagnosis - Discharge Diagnosis (1) Anemia Status: Acute (2) Subtherapeutic international normalized ratio (INR) Status: Acute (3) Hypotension Status: Acute (4) Acute bronchitis Status: Acute (5) Hyperbilirubinemia Status: Acute (6) Pulmonary hypertension Status: Chronic (7) Renal insufficiency Status: Chronic (8) CLL (chronic lymphocytic leukemia) Status: Chronic (9) History of pulmonary embolism Status: Chronic (10) Pneumonia Status: Acute (11) SIRS (systemic inflammatory response syndrome) Status: Acute (12) Hypoxia Status: Acute (13) Yeast species isolated but not further identified Status: Acute (14) Exposure to influenza Status: Acute (15) Candidal pneumonia Status: Acute (16) Rash Status: Acute Discharge/Transfer (Swing Bed) - Plan of Care Certification: I have reviewed and agree with this resident's plan of care. I certify that post-hospital [facility] facility services are required to be given on an inpatient basis because of the need for [facility] care on a continuing basis for the condition(s) for which he/she is receiving inpatient hospital services prior to admission to swing bed. I also certify that the resident meets existing SNF level of care definition.
== END 2018-12-05 14:13 | disposition swing bed (61) | DRG 193 ==
LOC: ER 16:06 → 2ND 19:21
PROVIDERS: ADMIT Family Medicine; ATTEND Family Medicine
CPT/HCPCS: 36415; 71010; 71045; 74177; 80048; 80053; 80074; 80202; 80329; 81001; 82150; 82272; 82803; 83605; 83690; 84443; 85007; 85014; 85018; 85025; 85610; 85730; 86078; 86850; 86870; 87040; 87070; 87205; 87275; 87276; 87506; 87507; 93005; 94640; 94660; 94761; 96366; 96367; 96374; 97110; 97163; 97530; 99285; G0328; J1450; J2543; J3370; P9016; Q9967

== ENCOUNTER 2018-12-05 14:19 | Inpatient (IN) ==
--- NOTE | 2018-12-05 15:28 | Pharmacy Consult Notes ---
[facility] Pharmacy VTE Monitoring - Patient Demographics Admission date: 12/05/18 Report Date: 12/05/18 Time: 15:28 Allergies/Adverse Reactions: Patient Allergies tramadol [TRAMADOL] Adverse Reaction (Intermediate, Verified 12/02/17 23:02) NA-NAUSEA morphine [MORPHINE] Adverse Reaction (Mild, Verified 12/02/17 23:02) NA-NAUSEA Height: 1.7 m Weight: 68.606 kg - VTE Risk Clinical Trial Participant: No - Prophylaxis VTE Prophylaxis Ordered?: Yes Types of VTE Prophylaxis: TEDS Knee High
--- NOTE | 2018-12-06 07:32 | Swing Bed Reports ---
[facility] Swing Bed H&P Swing Bed History and Physical: <Suzi Adames - Last Filed: 12/05/18 14:49> *Admission Date: 11/25/18 *Chief complaint: Pneumonia; weakness *History of present illness: Ms. Palomo is an 88-year-old female with a history of chronic lymphocytic leukemia who is currently on anticoagulation d/t a history of a PE. Her son stated she had a cough for the 1-2 weeks prior to admission and was taking Bromfed with some improvement. Her wheezing seemed to increase over the previous 2 days. She had also been on Macrobid for the 3 days for a urinary tract infection. He stated she awakened early and went to the bathroom and was feeling weak. As the day progressed, her weakness worsened. She began getting very pale and also looked jaundiced in the face. She became too weak to even walk. Therefore EMS was called and she was transported to the emergency room. Evaluation revealed a hemoglobin of 6 and a hematocrit of 19.6. Her stool for blood was negative. Her INR was supratherapeutic at 6.44. She was admitted for blood transfusion and further evaluation. Hospital Course Hospital Course: On admission patient was started on empiric antibiotics. These were changed to vancomycin and Zosyn IV. She did receive 2 units of packed red blood cells after admission and developed a fever. She was thought to possibly have a transfusion reaction. Night after admission she worsened required BiPAP, IV fluid bolus, and a dopamine drip. In addition to pneumonia she was felt to be septic. The following day she was better and was placed on Vapotherm. Dopamine was weaned off. She did require Lasix x2 doses and did have to be placed back on the BiPAP. Patient did gradually improve after initial events. CXR slowly improved as well. She required additional Lasix and time on BiPAP. She was placed on Vapotherm and was gradually weaned to oxygen per nasal cannula at 3 L/min. There was no evidence of a blood transfusion reaction and she received 2 more additional units of packed red blood cells when her hemoglobin was 6.8. INR became therapeutic and Coumadin was resumed. She received additional potassium for hypokalemia. She had yeast in her sputum and was placed on Diflucan IV. She was able to get out of bed on occasion but was very tired. Mobility was unstable. Physical therapy was consulted and plans were made to discharge her to a swing bed. She mostly ate very poorly but appetite was gradually improving. She did have periods of agitation and restlessness. She developed a rash. Restoril, sertraline, Tamiflu, Singulair, and fluconazole were all discontinued. To note she was started on Tamiflu because 1 of her visiting family members developed the flu. On 12/05/2018 patient was felt ready for rehab in a swing bed. Condition at transfer was stable and satisfactory. Cognition was satisfactory. Rehab potential was good. Prognosis was satisfactory. See discharge orders for diet and medication reconciliation. Follow-up while in rehab by Dr. Mckeon Exam Vital signs and Labs for Last 24 Hours: Temp Pulse Resp BP Pulse Ox 98.8 F 101 H 18 151/78 H 95 12/05/18 11:44 12/05/18 13:39 12/05/18 11:44 12/05/18 11:44 12/05/18 13:39 Laboratory Results - last 24 hr 12/04/18 17:07: Stl Aeromonas (PCR) Not detected, Stl C. cayetanensis PCR Not detected, Stool Rotavirus (PCR) Not detected, Stl Adenov F 40/41 PCR Not detected, Stool Astrovirus (PCR) Not detected, Stool Campylobacter PCR Not detected, Stl C.difficile Tox PCR Not detected, Stool Cryptosporidium PCR Not detected, Stl E.coli Shiga Tox PCR Not detected, Stool E coli O157 PCR Not detected, Stl Enterotoxigenic E PCR Not detected, Stool EPEC (PCR) Not detected, Stool EAEC (PCR) Not detected, Stl E. histolytica PCR Not detected, Stool Giardia Lamblia PCR Not detected, Stool Salmonella PCR Not detected, Stool Sapovirus (PCR) Not detected, Stl P. shigelloides PCR Not detected, Stl Shigella/EIEC PCR Not detected, St Y.enterocolitica PCR Not detected, Stool Vibrio (PCR) Not detected, Stl Vibrio cholerae PCR Not detected, Stl Norovirus GI/GII PCR Not detected I & O for Last 24 hours: Intake & Output 12/03/18 12/04/18 12/05/18 12/06/18 10:59 11:59 11:59 11:59 Intake Total 480 / 480 Output Total 240 / 240 Balance 240 / 240 Weight 151 lb 4 oz - Constitutional no acute distress (Sitting up in the bed and appeared comfortable) - *Routine Respiratory Exam Comments: Rare wheeze with improved breath sounds posteriorly - *Routine Cardiovascular Exam Present: RRR - *Routine Abdominal Exam Present: soft, normoactive bowel sounds. Absent: tenderness - *Routine Extremities Exam Absent: edema - *Routine Neurological Exam Present: alert Results Completed studies during hospitalization [Text1]: Laboratory Tests 11/25/18 11/25/18 12/02/18 16:15 17:16 05:50 WBC RBC Hgb Hct MCV MCH MCHC RDW Plt Count Neut % (Auto) Lymph % (Auto) [place] % (Auto) Eos % (Auto) Baso % (Auto) Neut # (Auto) Lymph # (Auto) PT 30.6 H INR 3.07 H Sodium Potassium Chloride Carbon Dioxide Anion Gap BUN Creatinine Estimated Creat Clear Estimated GFR Est GFR ( Amer) Glucose Calcium Hepatitis A IgM Ab Negative Hep Bs Antigen Negative Hep B Core IgM Ab Negative Hepatitis C Antibody <0.1 Influenza Type A Ag Negative Influenza Type B Ag Negative 12/04/18 12/04/18 12/04/18 05:40 05:40 05:40 WBC 80.3 H* RBC 2.90 L Hgb 9.3 L Hct 29.6 L MCV 102.1 H MCH 31.9 H MCHC 31.3 L RDW 19.7 H Plt Count 117 L D Neut % (Auto) 6.4 L Lymph % (Auto) 91.1 H [place] % (Auto) 0.4 L Eos % (Auto) 0.3 Baso % (Auto) 1.8 Neut # (Auto) 5.2 Lymph # (Auto) 73.1 H PT 28.1 H INR 2.81 H Sodium 141 Potassium 4.2 Chloride 101 Carbon Dioxide 34 H Anion Gap 10.2 BUN 10 Creatinine 0.80 Estimated Creat Clear 44 Estimated GFR 68 Est GFR ( Amer) 82 Glucose 88 Calcium 8.1 L Labs on day of discharge: Labs from last 24 hours 12/04/18 17:07 Stl Aeromonas (PCR) Not detected Stl C. cayetanensis PCR Not detected Stool Rotavirus (PCR) Not detected Stl Adenov F 40/41 PCR Not detected Stool Astrovirus (PCR) Not detected Stool Campylobacter PCR Not detected Stl C.difficile Tox PCR Not detected Stool Cryptosporidium PCR Not detected Stl E.coli Shiga Tox PCR Not detected Stool E coli O157 PCR Not detected Stl Enterotoxigenic E PCR Not detected Stool EPEC (PCR) Not detected Stool EAEC (PCR) Not detected Stl E. histolytica PCR Not detected Stool Giardia Lamblia PCR Not detected Stool Salmonella PCR Not detected Stool Sapovirus (PCR) Not detected Stl P. shigelloides PCR Not detected Stl Shigella/EIEC PCR Not detected St Y.enterocolitica PCR Not detected Stool Vibrio (PCR) Not detected Stl Vibrio cholerae PCR Not detected Stl Norovirus GI/GII PCR Not detected - Impressions CT of abdomen and pelvis 11/25/2018 IMPRESSION: 1. No evidence of acute intra-abdominal or retroperitoneal hemorrhage. 2. Splenomegaly 3. 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 IMPRESSION: Diffuse bilateral airspace disease consistent with diffuse pneumonia. 12/02/2018 chest x-ray DS: Diagnosis - Discharge Diagnosis (1) Anemia Status: Acute (2) Subtherapeutic international normalized ratio (INR) Status: Acute (3) Hypotension Status: Acute (4) Acute bronchitis Status: Acute (5) Hyperbilirubinemia Status: Acute (6) Pulmonary hypertension Status: Chronic (7) Renal insufficiency Status: Chronic (8) CLL (chronic lymphocytic leukemia) Status: Chronic (9) History of pulmonary embolism Status: Chronic (10) Pneumonia Status: Acute (11) SIRS (systemic inflammatory response syndrome) Status: Acute (12) Hypoxia Status: Acute (13) Yeast species isolated but not further identified Status: Acute (14) Exposure to influenza Status: Acute (15) Candidal pneumonia Status: Acute (16) Rash Status: Acute Discharge/Transfer (Swing Bed) - Plan of Care Resident has been informed of condition and prognosis?: Yes Mobility Status: ambulatory with assistance Goal of treatment:: improve strength and stability with ambulation; pneumonia resolution Rehab Potential: Fair Prognosis:: satisfactory I concur with the most recent H&P: Yes Date of most recent H&P: 11/26/18 Certification: I have reviewed and agree with this resident's plan of care. I certify that post-hospital senior care facility services are required to be given on an inpatient basis because of the need for senior care care on a continuing basis for the condition(s) for which he/she is receiving inpatient hospital services prior to admission to swing bed. I also certify that the resident meets existing SNF level of care definition. - Discharge from Acute Disposition: [facility] Swing Bed Condition: Good Home Med List for Swing Bed: Continue RX: Montelukast Sodium [Montelukast 10mg Tab] 10 mg PO HS RX: Levothyroxine Sodium [Synthroid 150mcg (0.15mg) tablet] 150 mcg PO DAILY RX: Polyethylene Glycol 3350 [Miralax Powder] 17 gm PO DAILY RX: Acetaminophen with Codeine [Tylenol with Codeine #3 tablet] 1 - 2 tab PO TIDP PRN MDD 1-2 as needed PRN Reason: shingles pain RX: Ondansetron [Zofran 4mg ODT] 4 mg PO TIDP PRN PRN Reason: Nausea Discontinued Warfarin Sodium 5 mg PO DAILY RX: Temazepam [Restoril 30mg capsule] 30 mg PO HS RX: Sertraline HCl [Zoloft 50mg tablet] 50 mg PO DAILY RX: Promethazine HCl [Phenergan 12.5mg tablet] 12.5 mg PO Q6HP PRN PRN Reason: Nausea And Vomiting RX: Furosemide [Furosemide 20mg Tab] 20 mg PO DAILY Ferrous Sulfate [Iron] 325 mg PO BID Nitrofurantoin Monohyd/M-Cryst [Nitrofurantoin [place]-Mcr 100 mg] 100 mg PO BID Gabapentin 800 mg PO TID Potassium Citrate [Urocit-K] 10 meq PO DAILY Dicyclomine HCl 20 mg PO QID RX: Pantoprazole Sodium [Protonix 40mg tablet] 40 mg PO DAILY No Action Potassium Chloride [Pot Chlor 10 mEq Tab] 10 meq PO DAILY RX: Temazepam [Restoril 30mg capsule] 30 mg PO HS Gabapentin 800 mg PO TID Warfarin Sodium 5 mg PO DAILY RX: Pantoprazole Sodium [Protonix 40mg tablet] 40 mg PO HS RX: Sertraline HCl [Zoloft 50mg tablet] 50 mg PO DAILY RX: Ferrous Sulfate 325 mg PO BID RX: Furosemide [Furosemide 20mg Tab] 20 mg PO DAILY <Hiren Mckeon - Last Filed: 12/05/18 17:26> Exam Vital signs and Labs for Last 24 Hours: Temp Pulse Resp BP Pulse Ox 98.8 F 101 H 18 151/78 H 95 12/05/18 11:44 12/05/18 13:39 12/05/18 11:44 12/05/18 11:44 12/05/18 13:39 Laboratory Results - last 24 hr 12/04/18 17:07: Stl Aeromonas (PCR) Not detected, Stl C. cayetanensis PCR Not detected, Stool Rotavirus (PCR) Not detected, Stl Adenov F 40/41 PCR Not detected, Stool Astrovirus (PCR) Not detected, Stool Campylobacter PCR Not detected, Stl C.difficile Tox PCR Not detected, Stool Cryptosporidium PCR Not detected, Stl E.coli Shiga Tox PCR Not detected, Stool E coli O157 PCR Not detected, Stl Enterotoxigenic E PCR Not detected, Stool EPEC (PCR) Not detected, Stool EAEC (PCR) Not detected, Stl E. histolytica PCR Not detected, Stool Giardia Lamblia PCR Not detected, Stool Salmonella PCR Not detected, Stool Sapovirus (PCR) Not detected, Stl P. shigelloides PCR Not detected, Stl Shigella/EIEC PCR Not detected, St Y.enterocolitica PCR Not detected, Stool Vibrio (PCR) Not detected, Stl Vibrio cholerae PCR Not detected, Stl Norovirus GI/GII PCR Not detected I & O for Last 24 hours: Intake & Output 12/03/18 12/04/18 12/05/18 12/06/18 10:59 11:59 11:59 11:59 Intake Total 480 / 480 Output Total 240 / 240 Balance 240 / 240 Weight 151 lb 4 oz Results Labs on day of discharge: Labs from last 24 hours 12/04/18 17:07 Stl Aeromonas (PCR) Not detected Stl C. cayetanensis PCR Not detected Stool Rotavirus (PCR) Not detected Stl Adenov F 40/41 PCR Not detected Stool Astrovirus (PCR) Not detected Stool Campylobacter PCR Not detected Stl C.difficile Tox PCR Not detected Stool Cryptosporidium PCR Not detected Stl E.coli Shiga Tox PCR Not detected Stool E coli O157 PCR Not detected Stl Enterotoxigenic E PCR Not detected Stool EPEC (PCR) Not detected Stool EAEC (PCR) Not detected Stl E. histolytica PCR Not detected Stool Giardia Lamblia PCR Not detected Stool Salmonella PCR Not detected Stool Sapovirus (PCR) Not detected Stl P. shigelloides PCR Not detected Stl Shigella/EIEC PCR Not detected St Y.enterocolitica PCR Not detected Stool Vibrio (PCR) Not detected Stl Vibrio cholerae PCR Not detected Stl Norovirus GI/GII PCR Not detected - Additional Comments THE MEDICATION LIST ON MATILDE DOCUMENT IS INCORRECT. PLEASE SEE SWING BED ADMISSION ORDERS FOR CORRECT LIST. DS: Diagnosis - Discharge Diagnosis (1) Anemia Status: Acute (2) Subtherapeutic international normalized ratio (INR) Status: Acute (3) Hypotension Status: Acute (4) Acute bronchitis Status: Acute (5) Hyperbilirubinemia Status: Acute (6) Pulmonary hypertension Status: Chronic (7) Renal insufficiency Status: Chronic (8) CLL (chronic lymphocytic leukemia) Status: Chronic (9) History of pulmonary embolism Status: Chronic (10) Pneumonia Status: Acute (11) SIRS (systemic inflammatory response syndrome) Status: Acute (12) Hypoxia Status: Acute (13) Yeast species isolated but not further identified Status: Acute (14) Exposure to influenza Status: Acute (15) Candidal pneumonia Status: Acute (16) Rash Status: Acute Discharge/Transfer (Swing Bed) - Plan of Care Certification: I have reviewed and agree with this resident's plan of care. I certify that post-hospital senior care facility services are required to be given on an inpatient basis because of the need for senior care care on a continuing basis for the condition(s) for which he/she is receiving inpatient hospital services prior to admission to swing bed. I also certify that the resident meets existing SNF level of care definition.
[2018-12-07 07:12] LABS: INR 2.19 (0.9-1.1); Prothrombin Time 22.1 seconds (9.4-11.8)
--- NOTE | 2018-12-07 08:27 | Progress Note ---
<Keke Romeo - Last Filed: 12/07/18 08:24> Internal Medicine - PN: Subj *Date: 12/07/18 *Time: 08:24 Interval history: Patient is sleeping this morning and does not wake up for exam. Her family states she rested comfortably after receiving her temazepam last night. It is currently ordered as needed and they would like it scheduled every night as this is how she takes it at home. She has not eaten any breakfast yet this morning. Exam Vital signs and Labs for Last 24 Hours: Temp Pulse Resp BP Pulse Ox 97.6 F 86 18 128/65 94 L 12/07/18 08:00 12/07/18 08:00 12/07/18 08:00 12/07/18 08:00 12/07/18 08:00 Laboratory Results - last 24 hr 12/07/18 06:53: PT 22.1 H, INR 2.19 H I & O for Last 24 hours: Intake & Output 12/04/18 12/05/18 12/06/18 12/07/18 11:59 11:59 11:59 11:59 Intake Total 240 / 240 360 / 360 Balance 240 / 240 360 / 360 Weight 151 lb 4.005 oz - Constitutional no acute distress - *Routine Respiratory Exam Present: rhonchi (faint), wheezes (faint) - *Routine Cardiovascular Exam Present: RRR - *Routine Abdominal Exam Present: soft, normoactive bowel sounds. Absent: tenderness - *Routine Extremities Exam Absent: cyanosis, clubbing, edema Assessment and Plan (1) Pneumonia Current visit: No Status: Acute Qualifiers: Laterality: bilateral Lung location: unspecified part of lung Category: Medical Code(s): J18.9 - Pneumonia, unspecified organism (2) Anemia Current visit: No Status: Acute Category: Medical Code(s): D64.9 - Anemia, unspecified (3) Candidal pneumonia Current visit: No Status: Acute Category: Medical Code(s): B37.1 - Pulmonary candidiasis (4) Exposure to influenza Current visit: No Status: Acute Category: Medical Code(s): Z20.828 - Contact with and (suspected) exposure to other viral communicable diseases (5) SIRS (systemic inflammatory response syndrome) Current visit: No Status: Acute Category: Medical Code(s): R65.10 - Systemic inflammatory response syndrome (SIRS) of non-infectious origin without acute organ dysfunction (6) Yeast species isolated but not further identified Current visit: No Status: Acute Category: Medical Code(s): B37.9 - Candidiasis, unspecified (7) 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 Category: Medical Code(s): C91.10 - Chronic lymphocytic leukemia of B-cell type not having achieved remission (8) History of pulmonary embolism Current visit: No Status: Chronic Category: Medical Code(s): Z86.711 - Personal history of pulmonary embolism (9) Pulmonary hypertension Current visit: No Status: Chronic Category: Medical Code(s): I27.20 - Pulmonary hypertension, unspecified - Assessment and plan all Dx Assessment and Plan for all problems:: Will continue antibiotics. Will discuss making temazepam scheduled with Dr. Mckeon. <Hiren Mckeon - Last Filed: 12/07/18 11:07> Exam Vital signs and Labs for Last 24 Hours: Temp Pulse Resp BP Pulse Ox 97.6 F 82 18 128/65 94 L 12/07/18 08:00 12/07/18 10:01 12/07/18 08:00 12/07/18 08:00 12/07/18 09:21 Laboratory Results - last 24 hr 12/07/18 06:53: PT 22.1 H, INR 2.19 H I & O for Last 24 hours: Intake & Output 12/04/18 12/05/18 12/06/18 12/07/18 11:59 11:59 11:59 11:59 Intake Total 240 / 240 360 / 360 Balance 240 / 240 360 / 360 Weight 151 lb 4.005 oz Assessment and Plan (1) Pneumonia Current visit: No Status: Acute Qualifiers: Laterality: bilateral Lung location: unspecified part of lung Category: Medical Code(s): J18.9 - Pneumonia, unspecified organism (2) Anemia Current visit: No Status: Acute Category: Medical Code(s): D64.9 - Anemia, unspecified (3) Candidal pneumonia Current visit: No Status: Acute Category: Medical Code(s): B37.1 - Pulmonary candidiasis (4) Exposure to influenza Current visit: No Status: Acute Category: Medical Code(s): Z20.828 - Contact with and (suspected) exposure to other viral communicable diseases (5) SIRS (systemic inflammatory response syndrome) Current visit: No Status: Acute Category: Medical Code(s): R65.10 - Systemic inflammatory response syndrome (SIRS) of non-infectious origin without acute organ dysfunction (6) Yeast species isolated but not further identified Current visit: No Status: Acute Category: Medical Code(s): B37.9 - Candidiasis, unspecified (7) 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 Category: Medical Code(s): C91.10 - Chronic lymphocytic leukemia of B-cell type not having achieved remission (8) History of pulmonary embolism Current visit: No Status: Chronic Category: Medical Code(s): Z86.711 - Personal history of pulmonary embolism (9) Pulmonary hypertension Current visit: No Status: Chronic Category: Medical Code(s): I27.20 - Pulmonary hypertension, unspecified - Assessment and plan all Dx Assessment and Plan for all problems:: Saw patient, agree with above note.
--- NOTE | 2018-12-08 21:19 | Discharge Summary ---
General - General Admission date:: 12/05/18 Discharge date: 12/08/18 HPI HPI: Ms. Palomo is an 88-year-old female with a history of chronic lymphocytic leukemia who is currently on anticoagulation d/t a history of a PE. Her son stated she had a cough for the 1-2 weeks prior to admission and was taking Bromfed with some improvement. Her wheezing seemed to increase over the previous 2 days. She had also been on Macrobid for the 3 days for a urinary tract infection. He stated she awakened early and went to the bathroom and was feeling weak. As the day progressed, her weakness worsened. She began getting very pale and also looked jaundiced in the face. She became too weak to even walk. Therefore EMS was called and she was transported to the emergency room. Evaluation revealed a hemoglobin of 6 and a hematocrit of 19.6. Her stool for blood was negative. Her INR was supratherapeutic at 6.44. She was admitted for blood transfusion and further evaluation. Hospital Course Hospital Course: On admission patient was started on empiric antibiotics. These were changed to vancomycin and Zosyn IV. She did receive 2 units of packed red blood cells after admission and developed a fever. She was thought to possibly have a transfusion reaction. The night after admission she worsened requiring BiPAP, IV fluid bolus, and a dopamine drip. In addition to pneumonia she was felt to be septic. The following day she was better and was placed on Vapotherm. Dopamine was weaned off. She did require Lasix x2 doses and did have to be placed back on the BiPAP. Patient did gradually improve after initial events. CXR slowly improved as well. She required additional Lasix and time on BiPAP. She was placed on Vapotherm and was gradually weaned to oxygen per nasal cannula at 3 L/min. There was no evidence of a blood transfusion reaction and she received 2 more additional units of packed red blood cells when her hemoglobin was 6.8. INR became therapeutic and Coumadin was resumed. She received additional potassium for hypokalemia. She had yeast in her sputum and was placed on Diflucan IV. She was able to get out of bed on occasion but was very tired. Mobility was unstable. Physical therapy was consulted and plans were made to discharge her to a swing bed. She mostly ate very poorly but appetite was gradually improving. She did have periods of agitation and restlessness. She developed a rash. Restoril, sertraline, Tamiflu, Singulair, and fluconazole were all discontinued. To note she was started on Tamiflu because 1 of her visiting family members developed the flu. On 12/05/2018 patient was felt ready for rehab in a swing bed. Condition at transfer was stable and satisfactory. Cognition was satisfactory. Rehab potential was good. Prognosis was satisfactory. The patient did work with OT and was able to rest better. She still ate very little. She did well during her swing bed stay and was stable to be discharged home. She will have assistance at home with family and sitters. Objective Vital signs: Temp Pulse Resp BP Pulse Ox 98.3 F 98 H 20 112/56 L 90 L 12/08/18 08:00 12/08/18 09:30 12/08/18 09:30 12/08/18 08:00 12/08/18 11:43 Narrative: - Constitutional no acute distress (Sitting up in the bed and appeared comfortable) - *Routine Respiratory Exam Comments: Rare wheeze with improved breath sounds posteriorly - *Routine Cardiovascular Exam Present: RRR - *Routine Abdominal Exam Present: soft, normoactive bowel sounds. Absent: tenderness - *Routine Extremities Exam Absent: edema - *Routine Neurological Exam Present: alert DS: Diagnosis - Discharge Diagnosis (1) Pneumonia Status: Acute (2) Anemia Status: Acute (3) Candidal pneumonia Status: Acute (4) Exposure to influenza Status: Acute (5) SIRS (systemic inflammatory response syndrome) Status: Acute (6) Yeast species isolated but not further identified Status: Acute (7) CLL (chronic lymphocytic leukemia) Status: Chronic (8) History of pulmonary embolism Status: Chronic (9) Pulmonary hypertension Status: Chronic Discharge Plan - Patient Discharge Instructions ACTIVITY: Continue current activity DIET: continue same diet Additional Instructions: Patient needs Home health PT/OT and mcfp. She also needs a nebulizer and a hospital bed Patient Instructions: Anemia, DI for Pneumonia -- Adult - Follow up Plan Follow up with: Hiren Mckeon MD [Primary Care Provider] - 1 month Disposition: Home Health Service Home Medications: Home Medications Medication Instructions Recorded Confirmed Type Acetaminophen with Codeine 1 - 2 tab PO TIDP PRN MDD 1-2 as 12/02/17 12/05/18 History [Tylenol with Codeine #3 needed tablet] Levothyroxine Sodium [Synthroid 150 mcg PO DAILY 12/02/17 12/05/18 History 150mcg (0.15mg) tablet] Montelukast Sodium [Montelukast 10 mg PO HS 12/02/17 12/05/18 History 10mg Tab] Ondansetron [Zofran 4mg ODT] 4 mg PO TIDP PRN 12/03/17 12/05/18 History Polyethylene Glycol 3350 [Miralax 17 gm PO DAILY 03/20/18 12/05/18 History Powder] Ferrous Sulfate 325 mg PO BID 12/05/18 12/05/18 History Furosemide [Furosemide 20mg Tab] 20 mg PO DAILY 12/05/18 12/05/18 History Pantoprazole Sodium [Protonix 40mg 40 mg PO HS 12/05/18 12/05/18 History tablet] Potassium Chloride [Pot Chlor 10 10 meq PO DAILY 12/05/18 12/05/18 History mEq Tab] Sertraline HCl [Zoloft 50mg tablet] 50 mg PO DAILY 12/05/18 12/05/18 History Temazepam [Restoril 30mg capsule] 30 mg PO HS 12/05/18 12/05/18 History Cefdinir [Omnicef 300mg Capsule] 300 mg PO BID #10 cap 12/08/18 Rx Gabapentin 800 mg PO TID #90 tab 12/08/18 Rx Levalbuterol HCl [Xopenex 1.25 mg IH TIDP PRN #30 vial.neb 12/08/18 Rx 1.25mg/3mL neb] Warfarin Sodium [Coumadin 1mg 1 mg PO COUMADIN #30 tab 12/08/18 Rx tablet] Prescriptions/Medication Reconciliation: New Levalbuterol HCl [Xopenex 1.25mg/3mL neb] 1.25 mg IH TIDP PRN #30 vial.neb PRN Reason: Shortness Of Breath Or Wheezing Warfarin Sodium [Coumadin 1mg tablet] 1 mg PO COUMADIN #30 tab Cefdinir [Omnicef 300mg Capsule] 300 mg PO BID #10 cap Continue Montelukast Sodium [Montelukast 10mg Tab] 10 mg PO HS Levothyroxine Sodium [Synthroid 150mcg (0.15mg) tablet] 150 mcg PO DAILY Polyethylene Glycol 3350 [Miralax Powder] 17 gm PO DAILY Potassium Chloride [Pot Chlor 10 mEq Tab] 10 meq PO DAILY Temazepam [Restoril 30mg capsule] 30 mg PO HS Pantoprazole Sodium [Protonix 40mg tablet] 40 mg PO HS Sertraline HCl [Zoloft 50mg tablet] 50 mg PO DAILY Gabapentin 800 mg PO TID #90 tab Acetaminophen with Codeine [Tylenol with Codeine #3 tablet] 1 - 2 tab PO TIDP PRN MDD 1-2 as needed PRN Reason: shingles pain Ondansetron [Zofran 4mg ODT] 4 mg PO TIDP PRN PRN Reason: Nausea Ferrous Sulfate 325 mg PO BID Furosemide [Furosemide 20mg Tab] 20 mg PO DAILY Discontinued Warfarin Sodium 5 mg PO DAILY
== END 2018-12-08 13:13 | disposition home health service (06) | DRG 193 ==
LOC: 2ND 14:19
PROVIDERS: ADMIT Family Medicine; ATTEND Family Medicine

== ENCOUNTER 2018-12-16 08:50 | Inpatient (IN) ==
--- NOTE | 2018-12-16 12:50 | History & Physical Report ---
*Admission Date: 12/16/18 <Keke Romeo 12/16/18 12:50> *Chief complaint: weakness <Keke Romeo 12/16/18 17:02> *History of present illness: Ms. Palomo is an 88-year-old female with a history of chronic lymphocytic leukemia who was just recently discharged after an admission for anemia, weakness, and pneumonia earlier in November. She had to receive a blood transfusion during that admission and was discharged home on abx after a swing bed stay. Her son states she was doing well at home up until a few days ago when she began getting weak again. Her family called Dr. Mckeon last night and he ordered bloodwork. They got the blood work done last night and her HGB was 5.1. Her bilirubin was also elevated. She will be admitted for a blood transfusion and further evaluation and treatment. She is still c/o a congested cough but her CXR showed no pneumonia. <Keke Romeo 12/16/18 17:02> [facility] History Medical History: Reports:: Cancer (chronic lymphocytic leukemia, colon), Depression, Hypertension, Pulmonary Embolism Denies:: Diabetes Mellitus Type 1, Diabetes Mellitus Type 2, MRSA <Keke Romeo 12/16/18 13:12> *Have you ever received a pneumonia vaccine?: No <Keke Romeo 12/16/18 12:50> *Have you received a flu vaccine this season?: No <Keke Romeo 12/16/18 12:50> Other Medical History: Reports: Hypothyroidism, Thyroid Disease (thyroid removed), Other (Colon cancer, Meningioma , L1 compresssion fracture) <Keke Romeo 12/16/18 13:12> Other Surgeries: Yes: Appendectomy, Colon Resection, Hernia Repair, Thyroidectomy <Keke Romeo 12/16/18 12:50> Amputation: No <Keke Romeo 12/16/18 12:50> Fractures: No <Keke Romeo 12/16/18 12:50> - *Social History Smoking Status: Former smoker <Keke Romeo 12/16/18 12:50> Tobacco Type: cigarettes <Keke Romeo 12/16/18 12:50> Alcohol Intake: never <Keke Romeo 12/16/18 12:50> *Occupational Status:: retired <Keke Romeo 12/16/18 12:50> Housing: house <Keke Romeo 12/16/18 12:50> Household Members: caregiver <Keke Romeo 12/16/18 12:50> - Psychiatric History Pschychiatric History:: Reports:: Depression <Keke Romeo 12/16/18 12:50> Family Hx:: Coronary Artery Disease, Hypertension, Kidney Disease <Keke Romeo 12/16/18 12:50> Review of Systems - Constitutional Reports fatigue, Reports weakness, Denies fever(s) <OusmaneKeke 12/16/18 17:02> - Eyes Denies blurry vision, Denies double vision <RowdyprabhjotKeke 12/16/18 17:02> - ENT Reports nasal congestion, Denies sore throat <RowdyprabhjotKeke 12/16/18 17:02> - *Cardiovascular Reports chest pain, Denies radiating jaw, neck or arm pain, Denies fast heart rate <OusmaneKeke 12/16/18 17:02> - *Respiratory Reports cough, Reports shortness of breath <Keke Romeo 12/16/18 17:02> - *Gastrointestinal Reports loose stools (last week but none in the past few days), Reports nausea, Reports vomiting (dry heaving), Denies abdominal pain <RowdyprabhjotKeke 12/16/18 17:02> - *Genitourinary Denies difficulty urinating, Denies painful urination <RowdyprabhjotKeke 12/16/18 17:02> - *Musculoskeletal Reports muscle weakness, Denies joint pain, Denies body aches <RowdyprabhjotKeke 12/16/18 17:02> - *Neurologic Reports weakness, Denies headache(s), Denies dizziness <RowdyprabhjotKeke 12/16/18 17:02> Meds Home Medications Medication Instructions Recorded Confirmed Type Acetaminophen with Codeine 1 - 2 tab PO TIDP PRN MDD 1-2 as 12/02/17 12/16/18 History [Tylenol with Codeine #3 needed tablet] Levothyroxine Sodium [Synthroid 150 mcg PO DAILY 12/02/17 12/16/18 History 150mcg (0.15mg) tablet] Montelukast Sodium [Montelukast 10 mg PO HS 12/02/17 12/16/18 History 10mg Tab] Ondansetron [Zofran 4mg ODT] 4 mg PO TIDP PRN 12/03/17 12/16/18 History Polyethylene Glycol 3350 [Miralax 17 gm PO DAILY 03/20/18 12/16/18 History Powder] Ferrous Sulfate 325 mg PO BID 12/05/18 12/16/18 History Furosemide [Furosemide 20mg Tab] 20 mg PO DAILY 12/05/18 12/16/18 History Potassium Chloride [Pot Chlor 10 10 meq PO DAILY 12/05/18 12/16/18 History mEq Tab] Temazepam [Restoril 30mg capsule] 30 mg PO HS 12/05/18 12/16/18 History Albuterol Sulfate [Proair Hfa 2 puffs INHALATION Q6HP PRN 12/16/18 12/16/18 History 90mcg/puff Inh] Gabapentin 800 mg PO TID 12/16/18 12/16/18 History Promethazine HCl [Phenergan 12.5mg 12.5 mg PO Q6H PRN 12/16/18 12/16/18 History tablet] Sertraline HCl [Zoloft 50mg tablet] 1 tab PO DAILY 12/16/18 12/16/18 History Warfarin Sodium [Coumadin 1mg 1 mg PO COUMADIN 12/16/18 12/16/18 History tablet] <David Greenberg - 12/16/18 18:09> Allergies Allergy/AdvReac Type Severity Reaction Status Date / Time tramadol [TRAMADOL] AdvReac Intermediate NA-NAUSEA Verified 12/16/18 14:12 morphine [MORPHINE] AdvReac Mild NA-NAUSEA Verified 12/16/18 14:12 <David Greenberg - 12/16/18 18:09> Exam Vital signs and Labs for Last 24 Hours: Temp Pulse Resp BP Pulse Ox 97.6 F 99 H 19 92/48 L 89 L 12/16/18 13:42 12/16/18 13:42 12/16/18 14:46 12/16/18 13:42 12/16/18 14:46 Laboratory Results - last 24 hr 12/16/18 14:13: Blood Type A Positive, Antibody Screen Positive, Crossmatch (AHG) See Detail <David Greenberg - 12/16/18 18:09> I & O for Last 24 hours: Intake & Output 12/14/18 12/15/18 12/16/18 12/17/18 11:59 11:59 11:59 11:59 Weight 140 lb 4.8 oz <David Greenberg - 12/16/18 18:09> - Constitutional Comments: Does not appear to feel well <[facility] 12/16/18 17:02> - *Routine HEENT Exam Head: Present: [facility]cephalic [facility]> Eye: Present: EOMI, PERRL [facility] 12/16/18 17:02> ENT: Present: mucous membranes dry [facility] 12/16/18 17:02> - *Routine Neck Exam Present: supple. Absent: lymphadenopathy <[facility] 12/16/18 17:02> - *Routine Respiratory Exam Present: rhonchi (right), wheezes <[facility] 12/16/18 17:02> - *Routine Cardiovascular Exam Present: RRR [facility] 12/16/18 17:02> - *Routine Abdominal Exam Present: soft, normoactive bowel sounds. Absent: tenderness <[facility] 12/16/18 17:02> - *Routine Extremities Exam Absent: cyanosis, clubbing, edema <[facility] 12/16/18 17:02> - *Routine Skin Exam Present: pallor, jaundice <[facility] 12/16/18 17:02> - *Routine Neurological Exam Present: alert, oriented X3 <[facility] 12/16/18 17:02> H&P: Result - Impressions CXR - cardiomegaly but nothing acute <[facility] 12/16/18 17:02> Assessment and Plan (1) Symptomatic anemia Current visit: No Status: Acute Category: Medical Code(s): D64.9 - Anemia, unspecified (2) Weakness Current visit: No Status: Acute Category: Medical Code(s): R53.1 - Weakne ss (3) Anemia Current visit: No Status: Chronic Category: Medical Code(s): D64.9 - Anemia, unspecified (4) 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 Category: Medical Code(s): C91.10 - Chronic lymphocytic leukemia of B-cell type not having achieved remission (5) History of pulmonary embolism Current visit: No Status: Chronic Category: Medical Code(s): Z86.711 - Personal history of pulmonary embolism (6) Pulmonary hypertension Current visit: No Status: Chronic Category: Medical Code(s): I27.20 - Pulmonary hypertension, unspecified (7) Renal insufficiency Current visit: No Status: Chronic Category: Medical Code(s): N28.9 - Disorder of kidney and ureter, unspecified (8) Hyperbilirubinemia Current visit: Yes Status: Acute Category: Medical Code(s): E80.6 - Other disorders of bilirubin metabolism <Keke Romeo - 12/16/18 16:56> (1) Symptomatic anemia Current visit: No Status: Acute Category: Medical Code(s): D64.9 - Anemia, unspecified (2) Weakness Current visit: No Status: Acute Category: Medical Code(s): R53.1 - Weakness (3) Anemia Current visit: No Status: Chronic Category: Medical Code(s): D64.9 - Anemia, unspecified (4) 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 Category: Medical Code(s): C91.10 - Chronic lymphocytic leukemia of B-cell type not having achieved remission (5) History of pulmonary embolism Current visit: No Status: Chronic Category: Medical Code(s): Z86.711 - Personal history of pulmonary embolism (6) Pulmonary hypertension Current visit: No Status: Chronic Category: Medical Code(s): I27.20 - Pulmonary hypertension, unspecified (7) Renal insufficiency Current visit: No Status: Chronic Category: Medical Code(s): N28.9 - Disorder of kidney and ureter, unspecified (8) Hyperbilirubinemia Current visit: Yes Status: Acute Category: Medical Code(s): E80.6 - Other disorders of bilirubin metabolism <David Greenberg - 12/16/18 18:09> - Assessment and plan all Dx Assessment and Plan for all problems:: Patient seen and examined. She looks chronically ill and is jaundiced but in NAD. Coarse rhonchi noted but CXR is clear. T. bilil elevated ? hemolysis. Awaiting blood transfusion. Will check LDH and Haptoglobin. <David Greenberg - 12/16/18 18:09> The patient's chest x-ray showed no pneumonia. Her bilirubin was elevated and her hemoglobin was low at 5.1. A blood transfusion has been ordered. We will continue some of her home medications. Will discuss further care with Dr. Greenberg. <Keke Romeo - 12/16/18 17:02>
[2018-12-17 06:56] LABS: Albumin Level 3.1 gm/dL (3.4-5.0); Albumin/Globulin Ratio 1.2 (1.1-1.8); Bilirubin,Total 2.5 mg/dL (0.2-1.0); Calcium 8.3 mg/dL (8.5-10.1); Globulin 2.6 gm/dl (1.3-3.2); Total Protein,Serum 5.7 gm/dL (6.4-8.2)
[2018-12-17 07:08] LABS: Basophils # 4.1 K/mm3 (0-0.2); Basophils % 3.2 % (0.1-2.0); Eosinophils # 0.3 K/mm3 (0.0-0.4); Eosinophils % 0.2 % (0.1-12.0); Lymphocytes # 110.3 K/mm3 (0.7-4.5); Lymphocytes % 85.6 % (10-50); Mean Corpuscular HGB Conc 30.6 g/dL (31.8-35.4); Mean Corpuscular Hemoglobin 36.9 pg (27.0-31.2); Mean Corpuscular Volume 120.7 fl (81-99); Mean Platelet Volume 7.6 fl (7.4-10.4); Monocytes # 0.5 K/mm3 (0.1-1.0); Monocytes % 0.4 % (1.7-9.3); Neutrophils # 13.7 K/mm3 (1.8-7.8); Platelet Count 309 K/mm3 (142-424); Red Blood Count 1.06 M/mm3 (4.20-5.40); Red Cell Distribution Width 18.7 % (11.5-17.5)
[2018-12-17 07:29] LABS: Hematocrit 12.8 % (37.0-47.0); Neutrophils % 10.6 % (37.0-80.0); White Blood Count 128.8 K/mm3 (4.8-10.8)
[2018-12-17 07:30] LABS: Hemoglobin 3.9 g/dL (12.2-16.2)
[2018-12-17 08:41] LABS: Lymphocytes % 93 % (10-50); Monocytes % 2 % (2-9); Neutrophils % 5 % (42-76); Nucleated Red Blood Cells 1; Total Cells Counted 100
[2018-12-17 08:43] LABS: Stomatocytes 1+; Tear Drop Cells 2+
[2018-12-17 08:44] LABS: Anisocytosis 1+; Macrocytosis 2+
--- NOTE | 2018-12-17 09:10 | Progress Note ---
Internal Medicine - PN: Subj *Date: 12/17/18 *Time: 09:07 Interval history: Patient was up most of the night, sleeping now, sitter states she looks more jaundiced today. Exam Vital signs and Labs for Last 24 Hours: Temp Pulse Resp BP Pulse Ox 97.8 F 107 H 18 90/47 L 98 12/17/18 08:45 12/17/18 08:45 12/17/18 08:45 12/17/18 08:45 12/17/18 08:45 Laboratory Results - last 24 hr 12/16/18 14:13: Blood Type A Positive, Antibody Screen Positive, Crossmatch (AHG) See Detail 12/16/18 14:13: Antibody Identification Warm Auto Antibody 12/16/18 14:13: Lactate Dehydrogenase 327 H 12/17/18 06:22: Sodium 141, Potassium 4.0, Chloride 101, Carbon Dioxide 30, Anion Gap 14.0, BUN 18, Creatinine 0.76, Estimated Creat Clear 41, Estimated GFR 72, Est GFR ( Amer) 87, Glucose 130 H, Calcium 8.3 L, Total Bilirubin 2.5 H, AST 15, ALT 14, Alkaline Phosphatase 112, Total Protein 5.7 L, Albumin 3.1 L D, Globulin 2.6, Albumin/Globulin Ratio 1.2 12/17/18 06:22: WBC 128.8 H*, RBC 1.06 L* D, Hgb 3.9 L*, Hct 12.8 L*, MCV 120.7 H, MCH 36.9 H, MCHC 30.6 L, RDW 18.7 H, Plt Count 309, MPV 7.6, Neut % (Auto) 10.6 L, Lymph % (Auto) 85.6 H, [place] % (Auto) 0.4 L, Eos % (Auto) 0.2, Baso % (Auto) 3.2 H, Neut # (Auto) 13.7 H, Lymph # (Auto) 110.3 H, [place] # (Auto) 0.5, Eos # (Auto) 0.3, Baso # (Auto) 4.1 H, Total Counted 100, Neutrophils % (Manual) 5 L, Lymphocytes % (Manual) 93 H, Monocytes % (Manual) 2, Nucleated RBCs 1, Platelet Estimate Normal, RBC Morphology Not Reportable, Poikilocytosis 1+, Anisocytosis 1+, Macrocytosis 2+, Tear Drop Cells 2+, Stomatocytes 1+ I & O for Last 24 hours: Intake & Output 12/14/18 12/15/18 12/16/18 12/17/18 23:59 23:59 23:59 23:59 Intake Total 240 / 240 0 / 0 Balance 240 / 240 0 / 0 Weight 140 lb 4.8 oz - Constitutional no acute distress (sleeping) - *Routine Skin Exam Present: jaundice Assessment and Plan (1) Symptomatic anemia Current visit: No Status: Acute Category: Medical Code(s): D64.9 - Anemia, unspecified (2) Weakness Current visit: No Status: Acute Category: Medical Code(s): R53.1 - Weakness (3) Anemia Current visit: No Status: Chronic Category: Medical Code(s): D64.9 - Anemia, unspecified (4) 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 Category: Medical Code(s): C91.10 - Chronic lymphocytic leukemia of B-cell type not having achieved remission (5) History of pulmonary embolism Current visit: No Status: Chronic Category: Medical Code(s): Z86.711 - Personal history of pulmonary embolism (6) Pulmonary hypertension Current visit: No Status: Chronic Category: Medical Code(s): I27.20 - Pulmonary hypertension, unspecified (7) Renal insufficiency Current visit: No Status: Chronic Category: Medical Code(s): N28.9 - Disorder of kidney and ureter, unspecified (8) Hyperbilirubinemia Current visit: Yes Status: Acute Category: Medical Code(s): E80.6 - Other disorders of bilirubin metabolism (9) Hemolytic anemia Current visit: Yes Status: Acute Category: Medical Code(s): D58.9 - Hereditary hemolytic anemia, unspecified - Assessment and plan all Dx Assessment and Plan for all problems:: Patient appears to have hemolytic anemia, plan to start high dose steroids today and order 2 more units of PRBCs, which will give her a total of 4 for the day, recheck labs tomorrow. Prognosis discussed with family.
--- NOTE | 2018-12-17 10:42 | Pharmacy Consult Notes ---
[facility] Pharmacy VTE Monitoring - Patient Demographics Admission date: 12/17/18 Report Date: 12/17/18 Time: 10:41 Allergies/Adverse Reactions: Patient Allergies tramadol [TRAMADOL] Adverse Reaction (Intermediate, Verified 12/16/18 14:12) NA-NAUSEA morphine [MORPHINE] Adverse Reaction (Mild, Verified 12/16/18 14:12) NA-NAUSEA Height: 1.68 m Weight: 63.639 kg Patient Problems: Current Active Problems Hyperbilirubinemia (Acute) Hemolytic anemia (Acute) - VTE Risk Labs: VTE Related Lab Results Hgb 3.9 g/dL (12.2-16.2) L* 12/17/18 06:22 Hct 12.8 % (37.0-47.0) L* 12/17/18 06:22 Plt Count 309 K/mm3 (142-424) 12/17/18 06:22 BUN 18 mg/dL (7-18) 12/17/18 06:22 Creatinine 0.76 mg/dL (0.55-1.02) 12/17/18 06:22 Estimated Creat Clear 41 mL/min (50-200) 12/17/18 06:22 Was VTE Risk Assessment Performed: Yes VTE Score: 6 VTE Risk Level: Moderate Risk - Prophylaxis Types of VTE Prophylaxis: TEDS Knee High (MARY HOSE ORDERED) Location of Applied Device: Bilateral Lower Extremeties
[2018-12-18 07:40] LABS: Eosinophils # 0.1 K/mm3 (0.0-0.4); Monocytes # 0.3 K/mm3 (0.1-1.0)
[2018-12-18 07:46] LABS: Basophils % 5.1 % (0.1-2.0); Hematocrit 25.9 % (37.0-47.0); Hemoglobin 8.7 g/dL (12.2-16.2); Lymphocytes # 161.2 K/mm3 (0.7-4.5); Lymphocytes % 91.6 % (10-50); Mean Corpuscular HGB Conc 33.7 g/dL (31.8-35.4); Mean Corpuscular Hemoglobin 33.3 pg (27.0-31.2); Monocytes % 0.2 % (1.7-9.3); Neutrophils # 14.3 K/mm3 (1.8-7.8); Platelet Count 256 K/mm3 (142-424); Red Blood Count 2.62 M/mm3 (4.20-5.40); Red Cell Distribution Width 23.9 % (11.5-17.5)
[2018-12-18 07:47] LABS: Neutrophils % 8.1 % (37.0-80.0); White Blood Count 175.9 K/mm3 (4.8-10.8)
[2018-12-18 07:53] LABS: INR 1.43 (0.9-1.1); Prothrombin Time 14.6 seconds (9.4-11.8)
[2018-12-18 07:57] LABS: Albumin Level 3.3 gm/dL (3.4-5.0); Albumin/Globulin Ratio 1.1 (1.1-1.8); Anion Gap 14.4 mEq/L (5-15); Bilirubin,Total 2.7 mg/dL (0.2-1.0); Calcium 7.9 mg/dL (8.5-10.1); Potassium 4.4 mmoL/L (3.5-5.1); Total Protein,Serum 6.3 gm/dL (6.4-8.2)
[2018-12-18 08:33] LABS: Lymphocytes % 93 % (10-50); Neutrophils % 7 % (42-76); Total Cells Counted 200
[2018-12-18 08:34] LABS: Tear Drop Cells 1+
--- NOTE | 2018-12-18 10:06 | Progress Note ---
Internal Medicine - PN: Subj *Date: 12/18/18 *Time: 10:03 Interval history: Patient with no new complaints today. She has a little more strength, was able to get up to the bedside commode with assistance this morning. Exam Vital signs and Labs for Last 24 Hours: Temp Pulse Resp BP Pulse Ox 98.9 F 107 H 20 117/63 91 L 12/18/18 07:44 12/18/18 07:44 12/18/18 07:44 12/18/18 07:44 12/18/18 07:44 Laboratory Results - last 24 hr 12/16/18 14:13: Blood Type A Positive, Antibody Screen Positive, Crossmatch (AHG) See Detail 12/18/18 07:16: WBC 175.9 H* D, RBC 2.62 L D, Hgb 8.7 L, Hct 25.9 L, MCV 99.0, MCH 33.3 H, MCHC 33.7, RDW 23.9 H D, Plt Count 256, MPV 8.0, Neut % (Auto) 8.1 L , Lymph % (Auto) 91.6 H, Calhoun % (Auto) 0.2 L, Eos % (Auto) 0.0 L, Baso % (Auto) 5.1 H, Neut # (Auto) 14.3 H, Lymph # (Auto) 161.2 H, Calhoun # (Auto) 0.3, Eos # (Auto) 0.1, Baso # (Auto) 9.0 H, Total Counted 200, Neutrophils % (Manual) 7 L, Lymphocytes % (Manual) 93 H, Platelet Estimate Normal, Tear Drop Cells 1+ 12/18/18 07:16: PT 14.6 H, INR 1.43 H 12/18/18 07:16: Sodium 144, Potassium 4.4, Chloride 104, Carbon Dioxide 30, Anion Gap 14.4, BUN 21 H, Creatinine 0.81, Estimated Creat Clear 41, Estimated GFR 67, Est GFR ( Amer) 81, Glucose 170 H, Calcium 7.9 L, Total Bilirubin 2.7 H, AST 19 D, ALT 16, Alkaline Phosphatase 126 H, Total Protein 6.3 L, Albumin 3.3 L, Globulin 3.0, Albumin/Globulin Ratio 1.1 Vital Signs - 24 hr 12/17/18 10:15 12/17/18 10:45 12/17/18 11:35 Temperature 97.5 F L 98.4 F 97.8 F Pulse Rate 104 H 103 H 100 H Pulse Rate [Left Radial] Respiratory Rate 18 18 16 Blood Pressure 116/62 120/62 116/52 L Blood Pressure [Left Arm] Blood Pressure [Right Arm] 02 Sat by Pulse Oximetry 97 96 94 L 12/17/18 11:40 12/17/18 11:45 12/17/18 11:50 Temperature 97.5 F L 97.8 F 97.8 F Pulse Rate 102 H 101 H 104 H Pulse Rate [Left Radial] Respiratory Rate 16 18 18 Blood Pressure 121/66 133/61 109/54 L Blood Pressure [Left Arm] Blood Pressure [Right Arm] 02 Sat by Pulse Oximetry 94 L 94 L 94 L 12/17/18 11:55 12/17/18 12:10 12/17/18 12:25 Temperature 98.1 F 97.9 F 98.3 F Pulse Rate 102 H 103 H 105 H Pulse Rate [Left Radial] Respiratory Rate 16 18 18 Blood Pressure 117/52 L 113/64 100/53 L Blood Pressure [Left Arm] Blood Pressure [Right Arm] 02 Sat by Pulse Oximetry 92 L 95 95 12/17/18 12:40 12/17/18 13:32 12/17/18 13:40 Temperature 97.9 F 97.8 F Pulse Rate 104 H 104 H Pulse Rate [Left Radial] Respiratory Rate 16 18 Blood Pressure 112/50 L 113/56 L Blood Pressure [Left Arm] Blood Pressure [Right Arm] 02 Sat by Pulse Oximetry 95 94 L 94 L 12/17/18 14:25 12/17/18 15:25 12/17/18 18:18 Temperature 97.5 F L 98.5 F Pulse Rate 102 H 105 H Pulse Rate [Left Radial] Respiratory Rate 18 16 Blood Pressure 115/62 122/66 Blood Pressure [Left Arm] Blood Pressure [Right Arm] 02 Sat by Pulse Oximetry 95 96 88 L 12/17/18 19:38 12/17/18 20:00 12/17/18 20:25 Temperature 97.4 F L Pulse Rate 82 Pulse Rate [Left Radial] 99 H 99 H Respiratory Rate 22 Blood Pressure Blood Pressure [Left Arm] 129/65 Blood Pressure [Right Arm] 02 Sat by Pulse Oximetry 96 96 12/17/18 23:25 12/17/18 23:45 12/17/18 23:50 Temperature 98.5 F 98.4 F 98.3 F Pulse Rate 109 H 101 H 100 H Pulse Rate [Left Radial] Respiratory Rate 18 16 16 Blood Pressure 127/66 119/61 123/65 Blood Pressure [Left Arm] Blood Pressure [Right Arm] 02 Sat by Pulse Oximetry 98 95 95 12/17/18 23:55 12/18/18 00:00 12/18/18 00:15 Temperature 98.0 F 98.4 F 98.3 F Pulse Rate 103 H 102 H 100 H Pulse Rate [Left Radial] Respiratory Rate 18 16 18 Blood Pressure 124/62 116/57 L 117/59 L Blood Pressure [Left Arm] Blood Pressure [Right Arm] 02 Sat by Pulse Oximetry 95 96 96 12/18/18 00:30 12/18/18 00:45 12/18/18 01:45 Temperature 97.8 F 98.3 F 97.8 F Pulse Rate 100 H 99 H 99 H Pulse Rate [Left Radial] Respiratory Rate 16 16 16 Blood Pressure 122/62 119/61 126/61 Blood Pressure [Left Arm] Blood Pressure [Right Arm] 02 Sat by Pulse Oximetry 97 95 96 12/18/18 02:07 12/18/18 03:09 12/18/18 03:15 Temperature 98.0 F 97.8 F 97.9 F Pulse Rate 99 H 97 H 96 H Pulse Rate [Left Radial] Respiratory Rate 16 18 16 Blood Pressure 118/60 115/65 123/70 Blood Pressure [Left Arm] Blood Pressure [Right Arm] 02 Sat by Pulse Oximetry 94 L 93 L 94 L 12/18/18 03:20 12/18/18 03:25 12/18/18 03:30 Temperature 97.8 F 97.9 F 98.0 F Pulse Rate 94 H 94 H 94 H Pulse Rate [Left Radial] Respiratory Rate 16 16 16 Blood Pressure 116/66 120/65 120/67 Blood Pressure [Left Arm] Blood Pressure [Right Arm] 02 Sat by Pulse Oximetry 94 L 95 95 12/18/18 03:45 12/18/18 04:00 12/18/18 04:15 Temperature 97.9 F 97.9 F 98.0 F Pulse Rate 92 H 93 H 94 H Pulse Rate [Left Radial] Respiratory Rate 16 16 16 Blood Pressure 114/64 119/89 119/64 Blood Pressure [Left Arm] Blood Pressure [Right Arm] 02 Sat by Pulse Oximetry 94 L 95 96 12/18/18 05:15 12/18/18 05:42 12/18/18 06:23 Temperature 98.7 F 98.4 F Pulse Rate 96 H 101 H 100 H Pulse Rate [Left Radial] Respiratory Rate 18 16 Blood Pressure 109/63 L 120/69 Blood Pressure [Left Arm] Blood Pressure [Right Arm] 02 Sat by Pulse Oximetry 94 L 94 L 92 L 12/18/18 06:42 12/18/18 07:44 Temperature 98.1 F 98.9 F Pulse Rate 97 H Pulse Rate [Left Radial] 107 H Respiratory Rate 18 20 Blood Pressure 120/64 Blood Pressure [Left Arm] Blood Pressure [Right Arm] 117/63 02 Sat by Pulse Oximetry 93 L 91 L I & O for Last 24 hours: Intake & Output 12/15/18 12/16/18 12/17/18 12/18/18 23:59 23:59 23:59 23:59 Intake Total 240 / 240 980 / 980 500 / 500 Output Total 925 / 925 850 / 850 Balance 240 / 240 55 / 55 -350 / -350 Weight 140 lb 4.8 oz 140 lb 4.8 oz - Constitutional no acute distress - *Routine HEENT Exam Head: Present: normocephalic Eye: Present: EOMI ENT: Present: mucous membranes moist - *Routine Neck Exam Present: supple. Absent: lymphadenopathy - *Routine Respiratory Exam Present: rhonchi (overall good air movement) - *Routine Cardiovascular Exam Present: RRR - *Routine Abdominal Exam Present: soft, normoactive bowel sounds. Absent: tenderness - *Routine Extremities Exam Absent: cyanosis, clubbing, edema - *Routine Skin Exam Present: warm, jaundice (appears less today). Absent: rash - *Routine Neurological Exam Present: alert Assessment and Plan (1) Symptomatic anemia Current visit: No Status: Acute Category: Medical Code(s): D64.9 - Anemia, unspecified (2) Weakness Current visit: No Status: Acute Category: Medical Code(s): R53.1 - Weakness (3) Anemia Current visit: No Status: Chronic Category: Medical Code(s): D64.9 - Anemia, unspecified (4) 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 Category: Medical Code(s): C91.10 - Chronic lymphocytic leukemia of B-cell type not having achieved remission (5) History of pulmonary embolism Current visit: No Status: Chronic Category: Medical Code(s): Z86.711 - Personal history of pulmonary embolism (6) Pulmonary hypertension Current visit: No Status: Chronic Category: Medical Code(s): I27.20 - Pulmonary hypertension, unspecified (7) Renal insufficiency Current visit: No Status: Chronic Category: Medical Code(s): N28.9 - Disorder of kidney and ureter, unspecified (8) Hyperbilirubinemia Current visit: Yes Status: Acute Category: Medical Code(s): E80.6 - Other disorders of bilirubin metabolism (9) Hemolytic anemia Current visit: Yes Status: Acute Category: Medical Code(s): D58.9 - Hereditary hemolytic anemia, unspecified - Assessment and plan all Dx Assessment and Plan for all problems:: Plan to remove edmonds catheter today and recheck labs tomorrow.
[2018-12-19 06:55] LABS: Basophils # 9.7 K/mm3 (0-0.2); Eosinophils # 0.1 K/mm3 (0.0-0.4); Hematocrit 25.8 % (37.0-47.0); Hemoglobin 8.6 g/dL (12.2-16.2); Lymphocytes # 177.8 K/mm3 (0.7-4.5); Lymphocytes % 91.7 % (10-50); Mean Corpuscular HGB Conc 33.4 g/dL (31.8-35.4); Mean Corpuscular Hemoglobin 33.7 pg (27.0-31.2); Mean Corpuscular Volume 100.9 fl (81-99); Mean Platelet Volume 7.8 fl (7.4-10.4); Monocytes # 0.5 K/mm3 (0.1-1.0); Monocytes % 0.2 % (1.7-9.3); Neutrophils # 15.5 K/mm3 (1.8-7.8); Platelet Count 246 K/mm3 (142-424); Red Blood Count 2.56 M/mm3 (4.20-5.40)
[2018-12-19 07:27] LABS: INR 2.14 (0.9-1.1); Prothrombin Time 21.6 seconds (9.4-11.8); White Blood Count 193.8 K/mm3 (4.8-10.8)
[2018-12-19 07:36] LABS: Albumin Level 3.4 gm/dL (3.4-5.0); Albumin/Globulin Ratio 1.3 (1.1-1.8); Anion Gap 14.7 mEq/L (5-15); Bilirubin,Total 2.2 mg/dL (0.2-1.0); Calcium 7.9 mg/dL (8.5-10.1); Globulin 2.7 gm/dl (1.3-3.2); Potassium 3.7 mmoL/L (3.5-5.1); Total Protein,Serum 6.1 gm/dL (6.4-8.2)
--- NOTE | 2018-12-19 08:45 | Progress Note ---
<Christiane Shah - Last Filed: 12/19/18 08:42> Internal Medicine - PN: Subj *Date: 12/19/18 *Time: 07:40 Interval history: She is currently resting quietly in bed. Caregiver is at the bedside and reports she was very restless overnight. She arouses to touch and denies any pain. Exam Vital signs and Labs for Last 24 Hours: Temp Pulse Resp BP Pulse Ox 97.6 F 92 H 20 129/71 91 L 12/19/18 04:00 12/19/18 05:57 12/19/18 04:00 12/19/18 04:00 12/19/18 05:57 Laboratory Results - last 24 hr 12/16/18 18:38: Haptoglobin <10 L 12/19/18 06:35: WBC 193.8 H*, RBC 2.56 L, Hgb 8.6 L, Hct 25.8 L, MCV 100.9 H, MCH 33.7 H, MCHC 33.4, RDW 25.0 H, Plt Count 246, MPV 7.8, Neut % (Auto) 8.0 L, Lymph % (Auto) 91.7 H, Shelby % (Auto) 0.2 L, Eos % (Auto) 0.0 L, Baso % (Auto) 5.0 H, Neut # (Auto) 15.5 H, Lymph # (Auto) 177.8 H, [place] # (Auto) 0.5, Eos # (Auto) 0.1, Baso # (Auto) 9.7 H 12/19/18 06:35: PT 21.6 H, INR 2.14 H 12/19/18 06:35: Sodium 142, Potassium 3.7, Chloride 102, Carbon Dioxide 29, Anion Gap 14.7, BUN 31 H D, Creatinine 0.75, Estimated Creat Clear 41, Estimated GFR 73, Est GFR ( Amer) 89, Glucose 155 H, Calcium 7.9 L, Total Bilirubin 2.2 H, AST 20, ALT 23 D, Alkaline Phosphatase 121 H, Total Protein 6.1 L, Albumin 3.4, Globulin 2.7, Albumin/Globulin Ratio 1.3 I & O for Last 24 hours: Intake & Output 12/16/18 12/17/18 12/18/18 12/19/18 11:59 11:59 11:59 11:59 Intake Total 610 / 610 1110 / 1110 340 / 340 Output Total 200 / 200 1575 / 1575 575 / 575 Balance 410 / 410 -465 / -465 -235 / -235 Weight 140 lb 4.8 oz - Constitutional no acute distress Comments: arouses to touch - *Routine HEENT Exam Head: Present: normocephalic ENT: Present: mucous membranes moist - *Routine Respiratory Exam Comments: good air movement with rhonchi throughout - *Routine Cardiovascular Exam Present: RRR - *Routine Abdominal Exam Present: soft, normoactive bowel sounds. Absent: tenderness, distended, rebound, guarding, rigid, organomegaly, mass - *Routine Extremities Exam Present: pulses intact. Absent: edema Assessment and Plan (1) Symptomatic anemia Current visit: No Status: Acute Category: Medical Code(s): D64.9 - Anemia, unspecified (2) Weakness Current visit: No Status: Acute Category: Medical Code(s): R53.1 - Weakness (3) Anemia Current visit: No Status: Chronic Category: Medical Code(s): D64.9 - Anemia, unspecified (4) 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 Category: Medical Code(s): C91.10 - Chronic lymphocytic leukemia of B-cell type not having achieved remission (5) History of pulmonary embolism Current visit: No Status: Chronic Category: Medical Code(s): Z86.711 - Personal history of pulmonary embolism (6) Pulmonary hypertension Current visit: No Status: Chronic Category: Medical Code(s): I27.20 - Pulmonary hypertension, unspecified (7) Renal insufficiency Current visit: No Status: Chronic Category: Medical Code(s): N28.9 - Disorder of kidney and ureter, unspecified (8) Hyperbilirubinemia Current visit: Yes Status: Acute Category: Medical Code(s): E80.6 - Other disorders of bilirubin metabolism (9) Hemolytic anemia Current visit: Yes Status: Acute Category: Medical Code(s): D58.9 - Hereditary hemolytic anemia, unspecified - Assessment and plan all Dx Assessment and Plan for all problems:: Hgb low but remains stable. Bilirubin continues to improve. Further per Dr. Mckeon. <Hiren Mckeon - Last Filed: 12/19/18 09:25> Exam Vital signs and Labs for Last 24 Hours: Temp Pulse Resp BP Pulse Ox 97.6 F 92 H 20 129/71 91 L 12/19/18 04:00 12/19/18 05:57 12/19/18 04:00 12/19/18 04:00 12/19/18 05:57 Laboratory Results - last 24 hr 12/16/18 18:38: Haptoglobin <10 L 12/19/18 06:35: WBC 193.8 H*, RBC 2.56 L, Hgb 8.6 L, Hct 25.8 L, MCV 100.9 H, MCH 33.7 H, MCHC 33.4, RDW 25.0 H, Plt Count 246, MPV 7.8, Neut % (Auto) 8.0 L, Lymph % (Auto) 91.7 H, [place] % (Auto) 0.2 L, Eos % (Auto) 0.0 L, Baso % (Auto) 5.0 H, Neut # (Auto) 15.5 H, Lymph # (Auto) 177.8 H, [place] # (Auto) 0.5, Eos # (Auto) 0.1, Baso # (Auto) 9.7 H 12/19/18 06:35: PT 21.6 H, INR 2.14 H 12/19/18 06:35: Sodium 142, Potassium 3.7, Chloride 102, Carbon Dioxide 29, Anion Gap 14.7, BUN 31 H D, Creatinine 0.75, Estimated Creat Clear 41, Estimated GFR 73, Est GFR ( Amer) 89, Glucose 155 H, Calcium 7.9 L, Total Bilirubin 2.2 H, AST 20, ALT 23 D, Alkaline Phosphatase 121 H, Total Protein 6.1 L, Albumin 3.4, Globulin 2.7, Albumin/Globulin Ratio 1.3 I & O for Last 24 hours: Intake & Output 12/16/18 12/17/18 12/18/18 12/19/18 23:59 23:59 23:59 23:59 Intake Total 240 / 240 980 / 980 740 / 740 100 / 100 Output Total 925 / 925 1425 / 1425 Balance 240 / 240 55 / 55 -685 / -685 100 / 100 Weight 140 lb 4.8 oz 140 lb 4.8 oz Assessment and Plan (1) Symptomatic anemia Current visit: No Status: Acute Category: Medical Code(s): D64.9 - Anemia, unspecified (2) Weakness Current visit: No Status: Acute Category: Medical Code(s): R53.1 - Weakness (3) Anemia Current visit: No Status: Chronic Category: Medical Code(s): D64.9 - Anemia, unspecified (4) 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 Category: Medical Code(s): C91.10 - Chronic lymphocytic leukemia of B-cell type not having achieved remission (5) History of pulmonary embolism Current visit: No Status: Chronic Category: Medical Code(s): Z86.711 - Personal history of pulmonary embolism (6) Pulmonary hypertension Current visit: No Status: Chronic Category: Medical Code(s): I27.20 - Pulmonary hypertension, unspecified (7) Renal insufficiency Current visit: No Status: Chronic Category: Medical Code(s): N28.9 - Disorder of kidney and ureter, unspecified (8) Hyperbilirubinemia Current visit: Yes Status: Acute Category: Medical Code(s): E80.6 - Other disorders of bilirubin metabolism (9) Hemolytic anemia Current visit: Yes Status: Acute Category: Medical Code(s): D58.9 - Hereditary hemolytic anemia, unspecified - Assessment and plan all Dx Assessment and Plan for all problems:: Saw patient, discuss current care with her son. H/H has stabilized, jaundice is improving. Patient is anxious to go home, may be able to discharge later today on oral steroids.
[2018-12-19 09:18] LABS: Lymphocytes % 95 % (10-50); Neutrophils % 5 % (42-76); Total Cells Counted 100
[2018-12-19 09:30] LABS: Anisocytosis 2+
[2018-12-19 09:31] LABS: Stomatocytes 2+; Tear Drop Cells 1+
[2018-12-19 09:36] LABS: Polychromasia 1+
[2018-12-19 09:37] LABS: Macrocytosis 2+
[2018-12-19 13:49] LABS: Microscopic, Urine URINE MICROSCOPIC (MICROSCOPIC)
[2018-12-19 13:55] LABS: Appearance,Urine CLEAR (Clear); Bilirubin,Urine Negative (Negative); Blood, Urine Negative (Negative); Color,Urine YELLOW (Yellow); Glucose,Urine (UA) Negative (Negative); Ketones,Urine Negative (Negative); Leukocyte Esterase,Urine Negative (Negative); Protein,Urine Negative (Negative); Specific Gravity, Urine 1.015 (1.005-1.030); Urobilinogen,Urine 0.2 EU/dl (0.2)
[2018-12-19 14:05] LABS: Bacteria,Urine Trace /lpf; Uric Acid Crystals,Urine 4+ /lpf
--- NOTE | 2018-12-20 21:35 | Discharge Summary ---
General - General Admission date:: 12/16/18 Discharge date: 12/19/18 HPI HPI: Ms. Palomo is an 88-year-old female with a history of chronic lymphocytic leukemia who was just recently discharged after an admission for anemia, weakness, and pneumonia earlier in November. She had to receive a blood transfusion during that admission and was discharged home on abx after a swing bed stay. Her son states she was doing well at home up until a few days ago when she began getting weak again. Her family called Dr. Mckeon last night and he ordered bloodwork. They got the blood work done last night and her HGB was 5.1. Her bilirubin was also elevated. She will be admitted for a blood transfusion and further evaluation and treatment. She is still c/o a congested cough but her CXR showed no pneumonia. Hospital Course Hospital Course: The patient's CXR showed cardiomegaly but nothing acute. Her bilirubin was elevated and her hemoglobin was low at 5.1. A blood transfusion was ordered and some of her home medications were continued. A LDH and haptoglobin were also ordered. The patient's haptoglobin was low at less than 10. Her LDH was high at 327. The patient's hemoglobin dropped to 3.9 on 12/17/18. It was felt she had hemolytic anemia therefore she was started on high-dose steroids and was transfused with 2 more units of packed red blood cells which gave her a total of 4. The patient did have a little more strength after her blood transfusion and was able to get up to the bedside commode with assistance. Her H&H improved to 8.7 and 25.9. Her H&H remained low but was stable. Her bilirubin improved. She was anxious to go home and was stable to be discharged home on steroids. She will continue with home health. She will need a CBC, CMP, and INR in 1 week. Objective Vital signs: Temp Pulse Resp BP Pulse Ox 98.9 F 99 H 12 150/74 H 92 L 12/19/18 15:25 12/19/18 15:25 12/19/18 15:25 12/19/18 15:25 12/19/18 15:25 Narrative: - Constitutional Comments: Does not appear to feel well - *Routine HEENT Exam Head: Present: normocephalic Eye: Present: EOMI, PERRL ENT: Present: mucous membranes dry - *Routine Neck Exam Present: supple. Absent: lymphadenopathy - *Routine Respiratory Exam Present: rhonchi (right), wheezes - *Routine Cardiovascular Exam Present: RRR - *Routine Abdominal Exam Present: soft, normoactive bowel sounds. Absent: tenderness - *Routine Extremities Exam Absent: cyanosis, clubbing, edema - *Routine Skin Exam Present: pallor, jaundice - *Routine Neurological Exam Present: alert, oriented X3 DS: Diagnosis - Discharge Diagnosis (1) Symptomatic anemia Status: Acute (2) Weakness Status: Acute (3) Anemia Status: Chronic (4) CLL (chronic lymphocytic leukemia) Status: Chronic (5) History of pulmonary embolism Status: Chronic (6) Pulmonary hypertension Status: Chronic (7) Renal insufficiency Status: Chronic (8) Hyperbilirubinemia Status: Acute (9) Hemolytic anemia Status: Acute Discharge Plan - Patient Discharge Instructions ACTIVITY: Continue current activity DIET: continue same diet Additional Instructions: Resume home health care: PT/OT/longterm. Check CBC, CMP and PT/INR in 1 week. Patient Instructions: Autoimmune Hemolytic Anemia, Anemia, DI for Blood Transfusion, Coumadin Vitamin K/ Diet, Coumadin Therapy Booklet - Follow up Plan Follow up with: Hiren Mckeon MD [Primary Care Provider] - (Pt to resume home health care tomorrow. Follow to be determined.) Disposition: Home Health Service Home Medications: Home Medications Medication Instructions Recorded Confirmed Type Acetaminophen with Codeine 1 - 2 tab PO TIDP PRN MDD 1-2 as 12/02/17 12/20/18 History [Tylenol with Codeine #3 needed tablet] Levothyroxine Sodium [Synthroid 150 mcg PO DAILY 12/02/17 12/20/18 History 150mcg (0.15mg) tablet] Montelukast Sodium [Montelukast 10 mg PO HS 12/02/17 12/20/18 History 10mg Tab] Ondansetron [Zofran 4mg ODT] 4 mg PO TIDP PRN 12/03/17 12/20/18 History Polyethylene Glycol 3350 [Miralax 17 gm PO DAILY 03/20/18 12/20/18 History Powder] Ferrous Sulfate 325 mg PO BID 12/05/18 12/20/18 History Furosemide [Furosemide 20mg Tab] 20 mg PO DAILY 12/05/18 12/20/18 History Potassium Chloride [Pot Chlor 10 10 meq PO DAILY 12/05/18 12/20/18 History mEq Tab] Temazepam [Restoril 30mg capsule] 30 mg PO HS 12/05/18 12/20/18 History Albuterol Sulfate [Proair Hfa 2 puffs INHALATION Q6HP PRN 12/16/18 12/20/18 History 90mcg/puff Inh] Gabapentin 800 mg PO TID 12/16/18 12/20/18 History Promethazine HCl [Phenergan 12.5mg 12.5 mg PO Q6H PRN 12/16/18 12/20/18 History tablet] Sertraline HCl [Zoloft 50mg tablet] 1 tab PO DAILY 12/16/18 12/20/18 History Warfarin Sodium [Coumadin 1mg 1 mg PO COUMADIN 12/16/18 12/20/18 History tablet] Glycopyrrolate [Robinul 1mg tablet] 1 mg PO TID #21 tablet 12/20/18 Rx predniSONE [Deltasone 20mg 20 mg PO BID 12/20/18 12/20/18 History tablet] Prescriptions/Medication Reconciliation: Continue Montelukast Sodium [Montelukast 10mg Tab] 10 mg PO HS Levothyroxine Sodium [Synthroid 150mcg (0.15mg) tablet] 150 mcg PO DAILY Polyethylene Glycol 3350 [Miralax Powder] 17 gm PO DAILY Potassium Chloride [Pot Chlor 10 mEq Tab] 10 meq PO DAILY Temazepam [Restoril 30mg capsule] 30 mg PO HS Gabapentin 800 mg PO TID Warfarin Sodium [Coumadin 1mg tablet] 1 mg PO COUMADIN Promethazine HCl [Phenergan 12.5mg tablet] 12.5 mg PO Q6H PRN PRN Reason: Nausea Sertraline HCl [Zoloft 50mg tablet] 1 tab PO DAILY Acetaminophen with Codeine [Tylenol with Codeine #3 tablet] 1 - 2 tab PO TIDP PRN MDD 1-2 as needed PRN Reason: pain Ondansetron [Zofran 4mg ODT] 4 mg PO TIDP PRN PRN Reason: Nausea Ferrous Sulfate 325 mg PO BID Furosemide [Furosemide 20mg Tab] 20 mg PO DAILY Albuterol Sulfate [Proair Hfa 90mcg/puff Inh] 2 puffs INHALATION Q6HP PRN PRN Reason: SOA No Action predniSONE [Deltasone 20mg tablet] 20 mg PO BID Glycopyrrolate [Robinul 1mg tablet] 1 mg PO TID #21 tablet
== END 2018-12-19 15:30 | disposition home health service (06) | DRG 809 ==
LOC: 2ND 13:15
PROVIDERS: ADMIT Family Medicine; ATTEND Family Medicine
CPT/HCPCS: 36415; 71010; 71045; 80053; 81001; 83010; 83615; 85007; 85025; 85610; 86850; 86870; 94640; 94761; J2405; P9016